=== PATIENT | male | born 1940 | race Caucasian/White ===

== ENCOUNTER 2016-08-16 08:03 | Inpatient (IN) | payer MEDICARE, OTHER ==
[~2016-08-16] VITALS: Ht 177.8 cm; Wt 104.6 kg
[2016-08-16] VITALS (23 sets, daily range): BP systolic 102–199; BP diastolic 49–89; PULSE 53–76; RESP 14–28; TEMP 97.2–98.5; O2SAT 84–100
[~2016-08-16 08:03] MED LIST: ASPI-110 PO; CARV25TA PO; COLA100C3 PO; COQ-100C2 PO; FERR65TA PO; FURO80TA PO; LAMO100 PO; LEVE250 PO; LEVO150T7 PO; LORA-373 PO; MINO10TA PO; MIRA33504 PO; POTA20TA5 PO; PROZ20CA11 PO; SUPETAB20 PO
[2016-08-16] MEDS ORDERED: VANCOMYCIN INJ 1,000 MG in SODIUM CHLOR 0.9% 250 ML INJ 250 ML IV STA (08:19)
[2016-08-16] MEDS ORDERED: PIPERACIL-TAZO 4.5 GM PREMIX 100 ML IV STA (08:19)
--- NOTE | 2016-08-16 08:29 | PD ---
HPI Chief Complaint: Respiratory Symptoms Time Seen by Provider: 08:13 Travel History International Travel<30 days: No Contact w/Intl Traveler<30days: No Traveled to known affect area: No History of Present Illness HPI Patient is a 76-year-old male presents emergency department with cough congestion shortness of breath and fever for the past week. Patient states he did go to his primary care physician is been taking azithromycin but is been gradually getting worse and this morning did have fever and his decided to bring him into the hospital. 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 No history of blood clots in the arms and legs. Only takes an aspirin 81 mg every other day. Patient on review of systems does have a history of some mild hemoptysis. Denies any chest pain abdominal pain nausea vomiting diarrhea. On arrival patient's room air saturation was 82%. PFSH Past Medical History Asthma: No Autoimmune Disease: No Blood Disorders: No Anxiety: Yes Depression: Yes Heart Rhythm Problems: No Cancer: Yes (prostate) Cardiovascular Problems: Yes (with stroke) High Cholesterol: Yes Chemotherapy: No Chest Pain: No Congestive Heart Failure: Yes COPD: No Cerebrovascular Accident: Yes Diabetes: Yes Patient Takes Glucophage: No Diminished Hearing: No Endocrine: Yes Gastrointestinal Disorders: No GERD: Yes Genitourinary: Yes Headaches: No Hepatitis: No Hiatal Hernia: No Hypertension: Yes Immune Disorder: No Kidney Stones: No Musculoskeletal: Yes (current fx l tibia - brace on knee) Neurologic: Yes Psychiatric: No Reproductive: No Respiratory: No Migraines: No Myocardial Infarction: Yes Radiation Therapy: No Renal Failure: No Seizures: Yes Sleep Apnea: Yes Thyroid Disease: Yes Ulcer: Yes Tetanus Vaccination: > 5 Years Influenza Vaccination: No PNEUMOCCOCAL Vaccine (Year): 2009 Past Surgical History Abdominal Surgery: Yes (diverticulitis ) AICD: No Appendectomy: No Arteriovenous Shunt: No Cardiac Surgery: No Cholecystectomy: Yes Ear Surgery: No Endocrine Surgery: No Eye Surgery: No Genitourinary Surgery: No Gynecologic Surgery: No Insulin Pump: No Joint Replacement: No Neurologic Surgery: Yes (brain 10/08/09 stroke) Oral Surgery: No Pacemaker: No Thoracic Surgery: No Other Surgery: Yes Social History Alcohol Use: Yes (SOCIALLY) Tobacco Use: No Substance Use: No Allergies-Medications (Allergen,Severity, Reaction): Coded Allergies: *MDRO Multi-Drug Resistant Organism (Verified Adverse Reaction, Unknown, ) MRSA Sputum 2008. MRSA PCR Screens negative 06/27/15 and 06/29/15. Cleared per Infection Control. Reported Meds & Prescriptions Reported Meds & Active Scripts Active Reported Promethazine-Codeine Liq 6.25-10 Mg/5 Ml Syrp 5 Ml PO Q6H PRN Ventolin Hfa 18 GM Inh (Albuterol Sulfate) 90 Mcg/Act Aer 1-2 Puff INH Q4-6H PRN Prednisone (21) 5 mg tab Dose Pack (Prednisone) 5 Mg Dspk 5 Mg PO DIRECTED Azithromycin 250 Mg Tab 250 Mg PO DIRECTED Take 2 tabs (500 mg) on day 1 then 1 tab days 2-5 Mucinex ER 12 HR (Guaifenesin) 600 Mg Melissa 600-1,200 Mg PO Q12HR PRN Not to Exceed 4 tablets/24hrs Minoxidil 10 Mg Tab 30 Mg PO HS Hydralazine (Hydralazine HCl) 25 Mg Tab 50 Mg PO HS Hydralazine (Hydralazine HCl) 25 Mg Tab 25 Mg PO TID Take with a meal Feosol (Ferrous Sulfate) 65 Mg Tab 130 Mg PO BIDPC Fluoxetine (Fluoxetine HCl) 40 Mg Cap 40 Cap PO HS Potassium Chloride Microencaps 20 Meq Tab 20 Meq PO DAILY Miralax Powder (Polyethylene Glycol 3350 Powder) 17 Gm Powd 17 Gm PO DAILY Mix and dissolve one measuring cap-ful (17 grams) in water or juice. Minoxidil 10 Mg Tab 20 Mg PO DAILY AT 12NOON Keppra (Levetiracetam) 250 Mg Tab 500 Mg PO BID Furosemide 80 Mg Tab 80 Mg PO DAILY Lorazepam 0.5 Mg Tab 0.5 Mg PO HS Levothyroxine (Levothyroxine Sodium) 150 Mcg Tab 150 Mcg PO DAILY Lamictal (Lamotrigine) 100 Mg Tab 300 Mg PO BID Colace (Docusate Sodium) 100 Mg Cap 100 Mg PO BID Coq-10 (Coenzyme Q10 (Ubidecarenone)) 100 Mg Cap 100 Mg PO DAILY Carvedilol 25 Mg Tab 50 Mg PO BID Aspirin 81 (Aspirin) 81 Mg Tabdr 81 Mg PO EVERY 3 DAYS Super B Complex Maxi (B-Complex W/ Folic Acid) 1 Tab 1 Tab PO DAILY Review of Systems Except as stated in HPI: all other systems reviewed are Neg Physical Exam Narrative GENERAL: Well-developed, overweight, in moderate respiratory distress. Patient appears sleepy but does arouse easily and shakes my hand. SKIN: Warm and dry. HEAD: Atraumatic. Normocephalic. EYES: Pupils equal and round. No scleral icterus. No injection or drainage. ENT: No nasal bleeding or discharge. Mucous membranes pink and moist. NECK: Trachea midline. No JVD. CARDIOVASCULAR: Regular rate and rhythm. No murmur appreciated. RESPIRATORY: Patient with intercostal and supraclavicular retractions, he has decent air entry in all lung lakhani with bibasilar wheezes probably worse on the right side. Posterior examination limited by the patient's is significantly weak. GASTROINTESTINAL: Abdomen soft, non-tender, nondistended. Hepatic and splenic margins not palpable. MUSCULOSKELETAL: No obvious deformities. No clubbing. No cyanosis. No edema. NEUROLOGICAL: Awake and alert. No obvious cranial nerve deficits. Motor grossly within normal limits. Normal speech. PSYCHIATRIC: Appropriate mood and affect; insight and judgment normal. Data Data Last Documented VS Vital Signs Date Time Temp Pulse Resp B/P Pulse Ox O2 Delivery O2 Flow Rate FiO2 08/16/16 10:34 65 14 120/56 96 08/16/16 10:16 60 08/16/16 09:54 97.5 08/16/16 08:59 Partial Rebreather 10 Orders Electrocardiogram (08/16/16 ) Complete Blood Count With Diff (08/16/16 08:19) Comprehensive Metabolic Panel (08/16/16 08:19) Prothrombin Time / Inr (Pt) (08/16/16 08:19) Act Partial Throm Time (Ptt) (08/16/16 08:19) Lactic Acid Sepsis Protocol (08/16/16 08:19) Magnesium (Mg) (08/16/16 08:19) Phosphorus (Po4) (08/16/16 08:19) Lipase (08/16/16 08:19) Ckmb (Isoenzyme) Profile (08/16/16 08:19) Troponin I (08/16/16 08:19) Urinalysis - C+S If Indicated (08/16/16 08:19) Influenzae A/B Antigen (08/16/16 08:19) Blood Culture (08/16/16 08:19) Chest, Single Ap (08/16/16 08:19) Blood Glucose (08/16/16 08:19) Ecg Monitoring (08/16/16 08:19) Iv Access Insert/Monitor (08/16/16 08:19) Oximetry (08/16/16 08:19) Oxygen Administration (08/16/16 08:19) Vancomycin Inj (Vancomycin Inj) (08/16/16 08:19) Piperacil-Tazo 4.5 Gm Premix (Zosyn 4.5 (08/16/16 08:19) Blood Gas Venous (Vbg) (08/16/16 08:19) Albuterol-Ipratropium Neb (Duoneb Neb) (08/16/16 08:30) Insert Temp Sensing Duran Cath (08/16/16 08:40) Urine Culture (08/16/16 08:30) Ct Pulmonary Angiogram (08/16/16 ) Etomidate Inj (Amidate Inj) (08/16/16 09:45) Succinylcholine Inj (Quelicin Inj) (08/16/16 09:45) Propofol 1000 Mg/100 Ml Inj (Diprivan 10 (08/16/16 09:45) ^ Infusion (08/16/16 09:37) RASS (08/16/16 09:37) Neurological Rass Scale LIZZY.Q2H (08/16/16 09:37) CKMB (08/16/16 08:25) CKMB% (08/16/16 08:25) Chest, Single Ap (08/16/16 ) Insert Temp Sensing Duran Cath (08/16/16 10:16) Insert Temp Sensing Duran Cath (08/16/16 10:16) Marissa-Gastric Tube Insert/Mon (08/16/16 10:16) Restraints Non-Violent LIZZY.Q3H (08/16/16 10:16) Admit Order (Ed Use Only) (08/16/16 ) Labs Laboratory Tests Test 08/16/16 08/16/16 08/16/16 08/16/16 08:23 08:25 08:30 08:45 White Blood Count 7.0 TH/MM3 Red Blood Count 3.74 MIL/MM3 Hemoglobin 12.9 GM/DL Hematocrit 37.5 % Mean Corpuscular Volume 100.2 FL Mean Corpuscular Hemoglobin 34.6 PG Mean Corpuscular Hemoglobin 34.5 % Concent Red Cell Distribution Width 13.6 % Platelet Count 50 TH/MM3 Mean Platelet Volume 9.1 FL Neutrophils (%) (Auto) 84.0 % Lymphocytes (%) (Auto) 5.0 % Monocytes (%) (Auto) 9.3 % Eosinophils (%) (Auto) 1.3 % Basophils (%) (Auto) 0.4 % Neutrophils # (Auto) 5.9 TH/MM3 Lymphocytes # (Auto) 0.4 TH/MM3 Monocytes # (Auto) 0.7 TH/MM3 Eosinophils # (Auto) 0.1 TH/MM3 Basophils # (Auto) 0.0 TH/MM3 CBC Comment AUTO DIFF Differential Comment AUTO DIFF CONFIRMED Platelet Estimate LOW Platelet Morphology Comment NORMAL Prothrombin Time 12.2 SEC Prothromb Time International 1.1 RATIO Ratio Activated Partial 28.5 SEC Thromboplast Time Sodium Level 136 MEQ/L Potassium Level 4.8 MEQ/L Chloride Level 101 MEQ/L Carbon Dioxide Level 28.6 MEQ/L Anion Gap 6 MEQ/L Blood Urea Nitrogen 18 MG/DL Creatinine 1.08 MG/DL Estimat Glomerular Filtration 66 ML/MIN Rate Random Glucose 87 MG/DL Lactic Acid Level 0.8 mmol/L Calcium Level 8.9 MG/DL Phosphorus Level 2.7 MG/DL Magnesium Level 2.2 MG/DL Total Bilirubin 1.0 MG/DL Aspartate Amino Transf 38 U/L (AST/SGOT) Alanine Aminotransferase 23 U/L (ALT/SGPT) Alkaline Phosphatase 123 U/L Total Creatine Kinase 425 U/L Creatine Kinase MB 1.8 NG/ML Creatine Kinase MB % 0.4 % Troponin I 0.04 NG/ML Total Protein 8.0 GM/DL Albumin 4.2 GM/DL Lipase 172 U/L Urine Color YELLOW Urine Turbidity CLEAR Urine pH 6.0 Urine Specific [place] 1.016 Urine Protein 30 mg/dL Urine Glucose (UA) NEG mg/dL Urine Ketones NEG mg/dL Urine Occult Blood SMALL Urine Nitrite NEG Urine Bilirubin NEG Urine Urobilinogen LESS THAN 2.0 MG/DL Urine Leukocyte Esterase NEG Urine RBC 25 /hpf Urine Bacteria RARE /hpf Urine Mucus FEW /lpf Microscopic Urinalysis Comment CATH-CULTURE IND Blood Gas Puncture Site CL Blood Gas Patient Temperature 98.6 Venous Blood pH 7.37 Venous Blood Partial Pressure 51 mmHg CO2 Venous Blood Partial Pressure 31 mmHg O2 Venous Blood HCO3 28 mmol/L Venous Blood Oxygen Saturation 54 % Venous Blood Oxygen Content 8.7 Vol % Venous Blood Base Excess 3.4 mmol/L Oxygen Delivery Device NRB [facility] Medical Decision Making Medical Screen Exam Complete: Yes Emergency Medical Condition: Yes Interpretation(s) EKG shows sinus rhythm with right axis deviation, QRS duration the upper limits of normal, probable incomplete left bundle branch block, no concerning ST T changes this time. This abnormal EKG. Differential Diagnosis Pneumonia, flu, sepsis, pulmonary embolism, hypoxic respiratory failure. Narrative Course Patient was roomed in emergency department, on my initial evaluation nursing is replaced the patient on 2 L nasal cannula and his sat has risen to 86. He is placed on nonrebreather which brought his saturation to 100%. He was given a breathing treatment and monitored. During his initial evaluation and after the treatments the patient started complaining that he could not breathe. He was revisited by me and is now somewhat more somnolent a GCS of 14. He has significant upper respiratory sounds and gurgling. After discussion with his and the patient the decision was made to electively intubate the patient. Discussed with Dr. Barajas before intubation and he is agreeable. Patient was very difficult intubation secondary to laryngeal edema. Ultimately he was able to be intubated and had no desaturation. It took 3 attempts in the emergency department. Differential diagnoses for the edema includes tracheitis as the patient did have a significant amount of laryngeal exudate, instrumentation reaction, medication reaction (patient did have vancomycin prior to the procedure). Dr. Barajas was notified of these laryngeal changes. Patient was placed on propofol sedation and had re-bolused 50 mg by me after intubation as he was fighting respirations. Was placed on mechanical ventilation and seems to be tolerating well. On reassess sometime later he appears quite comfortable vital signs stabilized. He is tolerating mechanical ventilation and saturation 98% on 60% FiO2. CT pulmonary angiogram shows no evidence of pulmonary embolism but there is a right-sided pleural effusion as well as a left-sided pneumonia. Last 24 hours Impressions Chest X-Ray 08/16/16 0819 Signed Impressions: Service Date/Time: Tuesday, August 16, 2016 08:32 - CONCLUSION: Underinflated examination with atelectasis versus mild consolidation at the left lung base. Shaquille Bustos MD Chest X-Ray 08/16/16 0000 Signed Impressions: Service Date/Time: Tuesday, August 16, 2016 10:18 - CONCLUSION: 1. Endotracheal tube in appropriate position with tip measuring 4 cm the angely. 2. Patchy airspace consolidation in the left mid and lower lung zone. Shaquille Bustos MD CT Angiography 08/16/16 0000 Signed Impressions: Service Date/Time: Tuesday, August 16, 2016 11:06 - CONCLUSION: 1. Evaluation for PE is limited due to severe respiratory motion artifact and less than optimal contrast bolus timing. However, no PE is seen through the lobar vessels. More distal PE cannot be excluded based on this examination. 2. There is consolidation and volume loss in the left lower lobe as well as the right lower lobe. There are trace bilateral pleural effusions. 3. Enlarged lymph nodes are present in the left axilla with edema along the left chest wall. Suggest correlation with clinical history and exam. 4. There is free fluid in the visualized upper abdomen. Shaquille Bustos MD Critical Care Narrative Aggregate critical care time was 31 minutes. Time to perform other separately billable procedures was not included in the critical care time. My time did not include minutes spent treating any other patients simultaneously or on activities that did not directly contribute to the patient's treatment. The services I provided to this patient were to treat and/or prevent clinically significant deterioration that could result in: and disability. I provided critical care services requiring my management, as noted below: Chart data review, documentation time, medication orders and management, vital sign assessments/reviewing monitor data, ordering and reviewing lab tests, ordering and interpreting/reviewing x-rays and diagnostic studies, care of the patient and discussion of the patient with the admitting physicians. Procedures Procedure Narrative After the risks and benefits were discussed the following procedure was performed: INTUBATION: The patient was put in optimal position for the procedure. Rapid sequence intubation was initiated by me using 20 milligrams of etomidate IV and 100 milligrams of succinylcholine IV. Attempted to intubate the patient with a glidescope 3 in no visualization of the cords could be accomplished the anatomy did appear somewhat distorted and likely some swelling of the arytenoid processes. Second attempt reconciliation with Mac 3 the arytenoids were observed no definitive tracheal rings. I attempted to pass an 8-0 tube without success. On third attempt with a glidescope 4 the airway was visualized but there is significant edema around both cords and the true vocal cords could not be identified. Attempted to pass a bougie without success. A 7-0 ET tube was able to be passed with some difficulty into the airway. This was confirmed with color change capnography, bilateral breath sounds. Patient was bag valve mask inbetween attempts and had no desaturation below 94%. Subsequent chest x-ray showed the ET tube was in good position. Diagnosis Primary Impression: Acute respiratory failure with hypoxia Additional Impressions: Vocal cords swelling Pneumonia Sepsis Admitting Information Admitting Physician Requests: Admit Condition: Stable Rishi Barreto MD Aug 16, 2016 08:29
[2016-08-16] MEDS ORDERED: RESP: ALBUTEROL 2.5 MG/IPRATROPIUM 0.5 MG NEB (SCH) NEB ONE (08:30)
[2016-08-16 09:05] LABS: AUTOMATED NEUTROPHIL # 5.9 TH/MM3 (1.8-7.7); BASOPHIL % 0.4 % (0.0-2.0); EOSINOPHIL # 0.1 TH/MM3 (0-0.4); EOSINOPHIL % 1.3 % (0.0-4.0); HEMATOCRIT 37.5 % (39.0-51.0); LYMPHOCYTE # 0.4 TH/MM3 (1.0-4.8); MEAN CELL VOLUME 100.2 FL (80.0-100.0); MEAN CORPUSCULAR HEMOGLOBIN 34.6 PG (27.0-34.0); MEAN CORPUSCULAR HGB CONC 34.5 % (32.0-36.0); MONO % 9.3 % (0.0-8.0); PLATELET COUNT 50 TH/MM3 (150-450); RED BLOOD COUNT 3.74 MIL/MM3 (4.50-5.90); RED CELL DISTRIBUTION WIDTH 13.6 % (11.6-17.2)
[2016-08-16 09:05] LABS: BLOOD GAS VENOUS BASE EXCESS 3.4 mmol/L (-2-2); BLOOD GAS VENOUS HCO3 28 mmol/L (22-26); BLOOD GAS VENOUS O2 CONTENT 8.7 Vol % (9.0-17.0); BLOOD GAS VENOUS O2 HGB SAT 54 % (70-76); BLOOD GAS VENOUS PCO2 51 mmHg (44-48); BLOOD GAS VENOUS PO2 31 mmHg (35-40); BLOOD GAS VENOUS pH 7.37 (7.360-7.400); CRITICAL VALUE NO; DRAW SITE CL; OXYGEN DEVICE NRB; STAT YES; TEMP CORR TO 98.6
[2016-08-16 09:09] LABS: HEMO FLAGS AUTO DIFF
[2016-08-16] MEDS ORDERED: FLUO40CA PO (09:12)
[2016-08-16] MEDS ORDERED: PRED5PAK PO (09:12)
[2016-08-16] MEDS ORDERED: MUCI600T PO (09:12)
[2016-08-16] MEDS ORDERED: VENTAER INH (09:12)
[2016-08-16] MEDS ORDERED: PROM6.256 PO (09:12)
[2016-08-16] MEDS ORDERED: HYDR25TA35 PO ×2 (09:12)
[2016-08-16] MEDS ORDERED: AZIT250T3 PO (09:12)
[2016-08-16] MEDS ORDERED: MINO10TA PO (09:12)
[2016-08-16] MEDS ORDERED: FERR65TA PO (09:12)
--- NOTE | 2016-08-16 09:13 | RADRPT ---
EXAM DATE/TIME: 08/16/2016 08:32 [facility] COMPARISON: CHEST SINGLE AP, June 25, 2015, 10:54. INDICATIONS : Short of breath. MEDICAL HISTORY : Stroke. SURGICAL HISTORY : None. ENCOUNTER: Initial ACUITY: 1 week PAIN SCORE: 9/10 LOCATION: Bilateral chest FINDINGS: Portable AP view of the chest demonstrates cardiac silhouette size at the upper limits for normal. [place] ngs are underinflated and there is mild airspace opacity at the left lung base. No pneumothorax or pl eural effusion is visualized. Bones and soft tissues demonstrate no acute finding. CONCLUSION: Underinflated examination with atelectasis versus mild consolidation at the left lung base. Shaquille Bustos MD on August 16, 2016 at 9:11 Board Certified Radiologist. This report was verified electronically.
[2016-08-16 09:18] LABS: BACTERIA, URINE RARE /hpf; BLOOD, URINE SMALL (NEG); COMMENT (UR) CATH-CULTURE IND; CULTURE IF INDICATED CATH CULTURE IND; GLUCOSE,URINE NEG (NEG); KETONE, URINE NEG (NEG); MUCUS URINE FEW /lpf (OCC); NITRITE,URINE NEG (NEG); URINE COLOR YELLOW (YELLW/STRAW)
[2016-08-16 09:19] LABS: APTT (PATIENT) 28.5 SEC (24.3-30.1); INTERNATIONAL NORMALIZED RATIO 1.1 RATIO; PROTHROMBIN TIME - PATIENT 12.2 SEC (9.8-11.6)
[2016-08-16] MEDS ORDERED: SUCCINYLCHOLINE CHLORIDE 200 MG/10 ML VIAL IVP ONE (09:45)
[2016-08-16] MEDS ORDERED: ETOMIDATE 20 MG/10 ML VIAL IV PUSH ONE (09:45)
[2016-08-16 09:49] LABS: PLATELET ESTIMATE SMEAR LOW (NORMAL); PLATELET MORPHOLOGY NORMAL (NORMAL); SCAN/DIFF AUTO DIFF CONFIRMED
[2016-08-16 09:54] LABS: ALKALINE PHOSPHATASE 123 U/L (45-117); ALT (GPT) 23 U/L (12-78); ANION GAP 6 MEQ/L (5-15); AST (GOT) 38 U/L (15-37); BICARBONATE 28.6 MEQ/L (21.0-32.0); BLOOD UREA NITROGEN 18 MG/DL (7-18); CHLORIDE 101 MEQ/L (98-107); CREATINE KINASE 425 U/L (39-308); GLOMERULAR FILTRATION RATE 66 ML/MIN (>89); MAGNESIUM 2.2 MG/DL (1.5-2.5); SODIUM (NA) 136 MEQ/L (136-145)
[2016-08-16 09:57] LABS: POTASSIUM 4.8 MEQ/L (3.5-5.1)
[2016-08-16 10:09] LABS: CKMB 1.8 NG/ML (0.5-3.6)
--- NOTE | 2016-08-16 10:44 | RADRPT ---
EXAM DATE/TIME: 08/16/2016 10:18 [facility] COMPARISON: CHEST SINGLE AP, August 16, 2016, 8:32. INDICATIONS : Post intubation. MEDICAL HISTORY : Stroke. SURGICAL HISTORY : None. ENCOUNTER: Initial ACUITY: 1 day PAIN SCORE: Non-responsive. LOCATION: Bilateral chest FINDINGS: Portable AP view of the chest demonstrates stable mild enlargement of the cardiac silhouette. Endotra cheal tube has been placed and the tip measures 4 cm from the angely. Nasogastric tube courses beyond the GE junction. Lungs are underinflated and there is opacity in the left mid and lower lung zone as well as atelectasis at the right base. No pleural effusion or pneumothorax is appreciated. CONCLUSION: 1. Endotracheal tube in appropriate position with tip measuring 4 cm the angely. 2. Patchy airspace consolidation in the left mid and lower lung zone. Shaquille Bustos MD on August 16, 2016 at 10:41 Board Certified Radiologist. This report was verified electronically.
[2016-08-16] MEDS ORDERED: IOHEXOL 350 MG/ML 10 ML VIAL (for RAD DIAG) IV ONE (11:12)
--- NOTE | 2016-08-16 11:45 | RADRPT ---
EXAM DATE/TIME: 08/16/2016 11:06 [facility] COMPARISON: CT PULMONARY ANGIOGRAM, June 27, 2015, 14:55. INDICATIONS : Shortness of breath, cough, wheezing; evaluate for embolism. IV CONTRAST: 75 cc Omnipaque 350 (iohexol) IV RADIATION DOSE: 23.23 CTDIvol (mGy) MEDICAL HISTORY : Congestive hearrt failure. Hypertension. Diabetes mellitus type 2. SURGICAL HISTORY : None. ENCOUNTER: Initial ACUITY: 3 days PAIN SCALE: Non-responsive LOCATION: chest TECHNIQUE: Volumetric scanning of the chest was performed using a pulmonary embolism protocol MIP images were re constructed. Using automated exposure control and adjustment of the mA and/or kV according to patien t size, radiation dose was kept as low as reasonably achievable to obtain optimal diagnostic quality images. FINDINGS: Examination quality is degraded by severe respiratory motion artifact and poor contrast bolus in the pulmonary arteries. PULMONARY ARTERIES: No filling defects are seen in the pulmonary arteries through the proximal lobar vessels. More distal PE cannot be excluded based on this exam. LUNGS: There is severe respiratory motion artifact. There is volume loss and consolidation in the left lower lobe and atelectasis versus consolidation in the right lower lobe. Trace pleural fluid is present bi laterally. No pneumothorax is present. PLEURAE: Trace pleural fluid is present bilaterally. MEDIASTINUM: There is coronary artery calcification and atherosclerotic disease of aorta. The heart is enlarged. N o mediastinal lymphadenopathy is visualized. MUSCULOSKELETAL: There are degenerative changes of the thoracic spine. MISCELLANEOUS: The visualized upper abdominal organs demonstrate no acute abnormality. There are enlarged left axill nahid lymph nodes with edema along the left chest wall. Free fluid is present in the upper abdomen. CONCLUSION: 1. Evaluation for PE is limited due to severe respiratory motion artifact and less than optimal contr ast bolus timing. However, no PE is seen through the lobar vessels. More distal PE cannot be excluded based on this examination. 2. There is consolidation and volume loss in the left lower lobe as well as the right lower lobe. The re are trace bilateral pleural effusions. 3. Enlarged lymph nodes are present in the left axilla with edema along the left chest wall. Suggest correlation with clinical history and exam. 4. There is free fluid in the visualized upper abdomen. Shaquille Bustos MD on August 16, 2016 at 11:39 Board Certified Radiologist. This report was verified electronically.
[2016-08-16] MEDS ORDERED: CHLORHEXIDINE GLUCONATE 2 % 1 PACK (2 CLOTHS) TOP PRN (13:15)
[2016-08-16] MEDS ORDERED: DEXTROSE 50% IN WATER 50 ML VIAL(D50) IV PUSH PRN (13:15)
[2016-08-16] MEDS ORDERED: INSULIN NovoLIN REGULAR SUPPLEMENTAL SCALE SQ SCH (13:15)
[2016-08-16] MEDS ORDERED: GLUCAGON 1 MG/ML VIAL OTHER PRN (13:15)
[2016-08-16] MEDS ORDERED: MISCELLANEOUS NURSING INFORMATION XX SCH (13:15)
[2016-08-16] MEDS: PANTOPRAZOLE SODIUM 40 MG VIAL IV SCH (13:16)
[2016-08-16] MEDS: methylPREDNISolone SOD SUCC 40 MG/1 ML VIAL IV PUSH SCH (13:16)
[2016-08-16] MEDS: PIPERACIL-TAZO 4.5 GM PREMIX 100 ML IV SCH (13:50)
[2016-08-16 14:23] LABS: BLOOD GAS BASE EXCESS 0.9 mmol/L (-2-2); BLOOD GAS CARBOXYHEMOGLOBIN 2.8 % (0-4); BLOOD GAS HCO3 25 mmol/L (22-26); BLOOD GAS METHEMOGLOBIN 2.1 % (0-2); BLOOD GAS O2 HGB SATURATION 92 % (90-100); BLOOD GAS OXYGEN CONTENT 14.8 Vol % (12.0-20.0); BLOOD GAS PCO2 41 mmHg (38-42); BLOOD GAS PO2 72 mmHG (61-120); BLOOD GAS TOTAL HGB 11.4 G/DL (12.0-16.0); CRITICAL VALUE NO; OXYGEN DEVICE VENTILATOR; TEMP CORR TO 98.6
[2016-08-16 14:24] LABS: DRAW SITE LT RADIAL; FIO2 40 %; NUMBER OF ARTERIAL PUNCTURES 1; STAT YES; ULNAR PULSE Y; VENT SETTINGS PRVC/AC/VT550/R14/P5
--- NOTE | 2016-08-16 15:18 | MH ---
cc: TERI BRANCH M.D. DATE OF ADMISSION: 08/16/2016 DATE OF : 1940. HISTORY OF PRESENT ILLNESS: The patient is a 76-year-old male with past medical history of hypertension, intracranial hemorrhage back in 2008, seizure, coronary artery disease, prostate CA and hypothyroidism. He presented to the [facility] Emergency Department with a history of cough, shortness of breath, congestion and subjective fever for the past week. The patient initially went to his primary care physician and was given azithromycin. However, his condition gradually worsened and this morning his decided to bring him to the hospital. 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 He only takes aspirin 81 milligrams every day. No history of chest pain, abdominal pain, nausea, vomiting or diarrhea. On arrival, he had a O2 saturation of 82% on room air. Due to worsening respiratory status, he was subsequently intubated with etomidate, succinylcholine and placed on full mechanical ventilation. According to the emergency department staff, the patient was a difficult intubation and required three attempts with a GlideScope and he was eventually intubated with a size 7.0 ET tube. He was noted to have significant edema around the vocal cords. In the emergency department, he was given bronchodilator treatment as well as vancomycin and Zosyn. His initial chest x-ray showed atelectasis versus mild consolation at the left lung base. A chest x-ray post-intubation showed the ET tube above the angely, patchy airspace consolidation left mid and lower lung zones. The patient also underwent CT angiogram of the chest to rule out PE which was a limited study due to severe respiratory and motion artifact. However, no PE is seen through the lobar vessels. There is a consolidation in the left lower lobe as well as right lower lobe and enlarged lymph nodes present in the left axilla. PAST MEDICAL HISTORY: His past medical history is significant for: 1. Hypertension. 2. Hypothyroidism. 3. Prostate cancer. 4. Coronary artery disease. 5. History of seizures. 6. History of hemorrhagic stroke with residual left hemiparesis. PAST SURGICAL HISTORY: 1. Previous cholecystectomy. 2. Previous craniotomy for hemorrhagic stroke. 3. Previous hernia repair. 4. Previous partial colectomy for diverticular perforation. ALLERGIES: NO KNOWN DRUG ALLERGIES. FAMILY HISTORY: Noncontributory. MEDICATIONS: Reported medications include: 1. Aspirin. 2. Coreg. 3. Lamictal. 4. Levothyroxine. 5. Lasix. 6. Keppra. 7. Minoxidil. 8. Hydralazine. 9. Prednisone. 10. Azithromycin. REVIEW OF SYSTEMS: The review of systems is as per the history of present illness, and the rest of the review of systems is limited as the patient is intubated. PHYSICAL EXAMINATION: GENERAL: A 76-year-old male intubated for hypoxemic respiratory failure. VITAL SIGNS: Temperature of 97.5, blood pressure 102/49, pulse of 57, saturation of 97%. VENT SETTINGS: PRVC / assist control rate of 14, tidal volume of 550, PEEP of 5, FIO2 60%. ____ 1.0. HEAD, EYES, EARS, NOSE, THROAT: Normocephalic and atraumatic. Pupils equal, round and reactive to light and accommodation. Extraocular muscles intact. Conjunctivae are pink. Nonicteric sclerae. Oral mucosa within normal limits. NECK: The neck is supple. No jugular venous distention, adenopathy or thyromegaly. Trachea in the midline. Orally intubated. CARDIOVASCULAR: Regular rate and rhythm. Normal S1 and S2. No murmurs, rubs or gallops noted. PULMONARY: Bilateral equal air entry. No crackles or wheezing. ABDOMEN: The abdomen is soft, obese, nontender, no distention. Positive bowel sounds. EXTREMITIES: No cyanosis, clubbing or edema. NEUROLOGIC: Intubated and sedated. LABORATORY DATA: WBCs 7, hemoglobin 12.9, hematocrit 37, platelet count of 50,000. Sodium 136, potassium 4.8, chloride 101, carbon dioxide 28, BUN of 18, creatinine 1.08, glucose of 87, lactic acid 0.8. AST 38, ALT 23, alkaline phosphatase of 123. Total CK of 425. INR 1.1. PT 12.2. PTT 28.5. Urinalysis showed rare bacteria, 25 RBCs. RADIOGRAPHY: CT angiogram of the chest is a limited study due to severe respiratory motion artifact. No PE seen through the lobar vessels. Consolidation seen in the left lower lobe as well as right lower lobe and enlarged lymph nodes present in the left axilla. IMPRESSION: 1. Acute hypoxemic respiratory failure. 2. Probable pneumonia. 4. Anemia and thrombocytopenia. 5. Hypertension. 6. History of seizure and hemorrhagic stroke. 7. Coronary artery disease. 8. Prostate CA. RECOMMENDATIONS: 1. Continue with Diprivan infusion for sedation and daily sedation vacation. 2. Monitor neuro status closely. 3. Continue with Keppra 500 milligrams twice a day and Lamictal 300 milligrams twice a day for underlying history of seizures. 4. Continue with vent support and maintain saturations above 92%. 5. Bronchodilators in the form of DuoNeb q. 6. 6. Will initiate intensive care unit vent bundle. 7. Place on IV steroids, Solu-Medrol 60 milligrams q.8 for laryngeal edema. 8. Will check ABG post-intubation. 9. Monitor heart rate and blood pressure closely and maintain MAP greater than 65 mmHg. 10. Resume hydralazine 25 milligrams p.o. three times a day. 11. Lactic acid level measured at 0.8. 12. Monitor renal function, intakes and outputs and electrolyte replacement as needed. 13. Start tube feeds in the form of Glucerna 1.5 with goal rate of 45 mL/hour. 14. Place on Protonix 40 milligrams IV daily for GI prophylaxis. 15. Continue with antibiotics in the form of Zosyn and monitor for signs of infection which include fever and WBCs. 16. Of note, the patient received Vancomycin and Zosyn in the emergency department. 17. Follow up on blood and urine cultures. 18. Will obtain a sputum culture with Gram stain. 19. Nasal washing for influenza is negative. 20. Place on sliding scale insulin with Accu-Chek q. 6 hours for glycemic control. 21. Continue with Synthroid 150 micrograms p.o. daily in view of history of hypothyroidism. 22. Will check a baseline TSH level. 23. Monitor CBC and coags and continue with ferrous sulfate. 24. GI prophylaxis with Protonix 40 milligrams daily. 25. DVT prophylaxis with SCDs. 26. Will hold off on chemical anticoagulation given thrombocytopenia and history of hemorrhagic stroke. CRITICAL CARE TIME: Sixty (60) minutes excluding procedures. MD LOY Corley/LAURA Funes: 08/16/2016/1:21 PM /2:51 PM
[2016-08-16] MEDS: RESP: ALBUTEROL 2.5 MG/IPRATROPIUM 0.5 MG NEB (SCH) INH (16:00)
[2016-08-17] VITALS (25 sets, daily range): BP systolic 115–161; BP diastolic 55–74; PULSE 50–74; RESP 12–20; TEMP 98.6–100.1; O2SAT 91–99
[2016-08-17] MEDS: PIPERACIL-TAZO 4.5 GM PREMIX 100 ML IV SCH ×4 (00:17→20:58)
[2016-08-17] MEDS: methylPREDNISolone SOD SUCC 40 MG/1 ML VIAL IV PUSH SCH ×4 (00:17→20:57)
[2016-08-17] MEDS: RESP: ALBUTEROL 2.5 MG/IPRATROPIUM 0.5 MG NEB (SCH) INH ×4 (03:37→20:47)
[2016-08-17 03:57] LABS: AUTOMATED NEUTROPHIL # 9.3 TH/MM3 (1.8-7.7); BASOPHIL % 0.2 % (0.0-2.0); HEMATOCRIT 28.1 % (39.0-51.0); LYMPH % 3.8 % (9.0-44.0); LYMPHOCYTE # 0.4 TH/MM3 (1.0-4.8); MEAN CORPUSCULAR HEMOGLOBIN 34.7 PG (27.0-34.0); MONO % 1.8 % (0.0-8.0); NEUT % 94.2 % (16.0-70.0); PLATELET COUNT 41 TH/MM3 (150-450); RED BLOOD COUNT 2.83 MIL/MM3 (4.50-5.90); RED CELL DISTRIBUTION WIDTH 13.1 % (11.6-17.2); WHITE BLOOD COUNT 9.9 TH/MM3 (4.0-11.0)
[2016-08-17] MEDS: CHLORHEXIDINE GLUCONATE 2 % 1 PACK (2 CLOTHS) TOP SCH (04:00)
[2016-08-17 04:08] LABS: HEMO FLAGS AUTO DIFF
[2016-08-17 04:28] LABS: ALKALINE PHOSPHATASE 81 U/L (45-117); ALT (GPT) 18 U/L (12-78); ANION GAP 9 MEQ/L (5-15); AST (GOT) 22 U/L (15-37); BICARBONATE 25.5 MEQ/L (21.0-32.0); BLOOD UREA NITROGEN 17 MG/DL (7-18); CHLORIDE 106 MEQ/L (98-107); GLOMERULAR FILTRATION RATE 82 ML/MIN (>89); POTASSIUM 4.1 MEQ/L (3.5-5.1); SODIUM (NA) 140 MEQ/L (136-145); TOTAL BILIRUBIN ADULT 0.8 MG/DL (0.2-1.0)
[2016-08-17 04:51] LABS: PLATELET ESTIMATE SMEAR LOW (NORMAL); PLATELET MORPHOLOGY NORMAL (NORMAL); SCAN/DIFF AUTO DIFF CONFIRMED
[2016-08-17] MEDS: INSULIN NovoLIN REGULAR SUPPLEMENTAL SCALE SQ SCH ×4 (06:00→18:00)
--- NOTE | 2016-08-17 08:28 | HHI.CCPN ---
Subjective Remarks/Hospital Course The patient is a 76-year-old male with past medical history of hypertension, intracranial hemorrhage back in 2008, seizure, coronary artery disease, prostate CA and hypothyroidism. He presented to the [facility] Emergency Department with a history of cough, shortness of breath, congestion and subjective fever for the past week. The patient initially went to his primary care physician and was given azithromycin. However, his condition gradually worsened and this morning his decided to bring him to the hospital. 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 He only takes aspirin 81 milligrams every day. No history of chest pain, abdominal pain, nausea, vomiting or diarrhea. On arrival, he had a O2 saturation of 82% on room air. Due to worsening respiratory status, he was subsequently intubated with etomidate, succinylcholine and placed on full mechanical ventilation. According to the emergency department staff, the patient was a difficult intubation and required three attempts with a GlideScope and he was eventually intubated with a size 7.0 ET tube. He was noted to have significant edema around the vocal cords. In the emergency department, he was given bronchodilator treatment as well as vancomycin and Zosyn. His initial chest x-ray showed atelectasis versus mild consolation at the left lung base. A chest x-ray post-intubation showed the ET tube above the angely, patchy airspace consolidation left mid and lower lung zones. The patient also underwent CT angiogram of the chest to rule out PE which was a limited study due to severe respiratory and motion artifact. However, no PE is seen through the lobar vessels. There is a consolidation in the left lower lobe as well as right lower lobe and enlarged lymph nodes present in the left axilla. 08/17 No acute events overnight. Sedated with Diprivan and intubated. Afebrile. Objective Vital Signs Date Time Temp Pulse Resp B/P Pulse Ox O2 Delivery O2 Flow Rate FiO2 08/17/16 07:46 98 40 08/17/16 06:00 60 08/17/16 04:00 98.8 14 142/63 08/16/16 16:23 Ventilator 08/16/16 08:59 10 Intake and Output 08/16/16 08/16/16 08/17/16 08:00 16:00 00:00 Intake Total 195 ml Output Total 400 ml 600 ml Balance -400 ml -405 ml Result Diagram: 08/17/16 0310 08/17/16 031 Other Results Laboratory Tests Test 08/16/16 08/16/16 08/16/16 08/16/16 08:30 08:45 14:10 16:50 Urine Color YELLOW Urine Turbidity CLEAR Urine pH 6.0 Urine Specific [place] 1.016 Urine Protein 30 mg/dL Urine Glucose (UA) NEG mg/dL Urine Ketones NEG mg/dL Urine Occult Blood SMALL Urine Nitrite NEG Urine Bilirubin NEG Urine Urobilinogen LESS THAN 2.0 MG/DL Urine Leukocyte Esterase NEG Urine RBC 25 /hpf Urine Bacteria RARE /hpf Urine Mucus FEW /lpf Microscopic Urinalysis Comment CATH-CULTURE IND Blood Gas Puncture Site CL LT RADIAL Blood Gas Patient Temperature 98.6 98.6 Venous Blood pH 7.37 Venous Blood Partial Pressure 51 mmHg CO2 Venous Blood Partial Pressure 31 mmHg O2 Venous Blood HCO3 28 mmol/L Venous Blood Oxygen Saturation 54 % Venous Blood Oxygen Content 8.7 Vol % Venous Blood Base Excess 3.4 mmol/L Oxygen Delivery Device NRB VENTILATOR Blood Gas HCO3 25 mmol/L Blood Gas Base Excess 0.9 mmol/L Blood Gas Oxygen Saturation 92 % Arterial Blood pH 7.41 Arterial Blood Partial 41 mmHg Pressure CO2 Arterial Blood Partial 72 mmHG Pressure O2 Arterial Blood Oxygen Content 14.8 Vol % Arterial Blood 2.8 % Carboxyhemoglobin Arterial Blood Methemoglobin 2.1 % Blood Gas Hemoglobin 11.4 G/DL Blood Gas Ventilator Setting PRVC/AC/VT550/R14/P5 Blood Gas Inspired Oxygen 40 % Nasal Screen MRSA (PCR) NEGATIVE Test 08/17/16 03:10 White Blood Count 9.9 TH/MM3 Red Blood Count 2.83 MIL/MM3 Hemoglobin 9.8 GM/DL Hematocrit 28.1 % Mean Corpuscular Volume 99.0 FL Mean Corpuscular Hemoglobin 34.7 PG Mean Corpuscular Hemoglobin 35.0 % Concent Red Cell Distribution Width 13.1 % Platelet Count 41 TH/MM3 Mean Platelet Volume 9.0 FL Neutrophils (%) (Auto) 94.2 % Lymphocytes (%) (Auto) 3.8 % Monocytes (%) (Auto) 1.8 % Eosinophils (%) (Auto) 0.0 % Basophils (%) (Auto) 0.2 % Neutrophils # (Auto) 9.3 TH/MM3 Lymphocytes # (Auto) 0.4 TH/MM3 Monocytes # (Auto) 0.2 TH/MM3 Eosinophils # (Auto) 0.0 TH/MM3 Basophils # (Auto) 0.0 TH/MM3 CBC Comment AUTO DIFF Differential Comment AUTO DIFF CONFIRMED Platelet Estimate LOW Platelet Morphology Comment NORMAL Sodium Level 140 MEQ/L Potassium Level 4.1 MEQ/L Chloride Level 106 MEQ/L Carbon Dioxide Level 25.5 MEQ/L Anion Gap 9 MEQ/L Blood Urea Nitrogen 17 MG/DL Creatinine 0.90 MG/DL Estimat Glomerular Filtration 82 ML/MIN Rate Random Glucose 107 MG/DL Calcium Level 8.2 MG/DL Phosphorus Level 3.1 MG/DL Magnesium Level 2.0 MG/DL Total Bilirubin 0.8 MG/DL Aspartate Amino Transf 22 U/L (AST/SGOT) Alanine Aminotransferase 18 U/L (ALT/SGPT) Alkaline Phosphatase 81 U/L Total Protein 5.8 GM/DL Albumin 3.1 GM/DL Imaging Last Impressions Chest X-Ray 08/16/16 0819 Signed Impressions: Service Date/Time: Tuesday, August 16, 2016 08:32 - CONCLUSION: Underinflated examination with atelectasis versus mild consolidation at the left lung base. Shaquille Bustos MD CT Angiography 08/16/16 0000 Signed Impressions: Service Date/Time: Tuesday, August 16, 2016 11:06 - CONCLUSION: 1. Evaluation for PE is limited due to severe respiratory motion artifact and less than optimal contrast bolus timing. However, no PE is seen through the lobar vessels. More distal PE cannot be excluded based on this examination. 2. There is consolidation and volume loss in the left lower lobe as well as the right lower lobe. There are trace bilateral pleural effusions. 3. Enlarged lymph nodes are present in the left axilla with edema along the left chest wall. Suggest correlation with clinical history and exam. 4. There is free fluid in the visualized upper abdomen. Shaquille Bustos MD Objective Remarks GENERAL: Patient is 76yo intubated and sedated. SKIN: Warm and dry. HEAD: Normocephalic. EYES: No scleral icterus. No injection or drainage. NECK: Supple, trachea midline. No JVD or lymphadenopathy. CARDIOVASCULAR: Regular rate and rhythm without murmurs, gallops, or rubs. RESPIRATORY: Breath sounds equal bilaterally. No accessory muscle use. GASTROINTESTINAL: Abdomen soft, non-tender, nondistended. MUSCULOSKELETAL: No cyanosis, or edema. Neuro: Sedated, intubated A/P Assessment and Plan 1. Acute hypoxemic respiratory failure. 2. Probable pneumonia. 4. Anemia and thrombocytopenia. 5. Hypertension. 6. History of seizure and hemorrhagic stroke. 7. Coronary artery disease. 8. Prostate CA. Plan Neuro: Continue with Diprivan infusion for sedation and daily sedation vacation. Monitor neuro status closely. Continue with Keppra 500 mg BID and Lamictal 300 mg BID for underlying history of seizures. Pulm: Continue with vent support and maintain saturations above 92%. Bronchodilators, ICU vent bundle. Continue with IV steroids, Solu-Medrol 60 mg q.8 for laryngeal edema. CV: Monitor HR and BP and maintain MAP > 65 mmHg. On hydralazine 25 mg TID. Lactic acid level measured at 0.8. : Monitor renal function, intakes and outputs and electrolyte replacement as needed. GI: Continue with TF feeds-Glucerna 1.5 with goal rate of 45 mL/hour. Protonix 40 mg IV daily for GI prophylaxis. ID: Continue with abx(Zosyn) and monitor for signs of infection( fever and WBCs) . Given Vancomycin and Zosyn in ED. Follow up on cxs Nasal washing for influenza is negative. Endo: SSI with Accu-Chek q. 6 hours for glycemic control. On Synthroid 150 micrograms p.o. daily. TSH 3.71 Heme: Monitor CBC and coags and continue with ferrous sulfate. Heme eval for thrombocytopenia GI prophylaxis with Protonix 40 milligrams daily. DVT prophylaxis with SCDs. Not on chemical anticoagulation given thrombocytopenia and history of hemorrhagic stroke. CCT 30 mins Mj Mcgraw MD Aug 17, 2016 08:28
[2016-08-17] MEDS: FERROUS SULFATE 300 MG /5ML UDC PO SCH ×2 (08:41→18:38)
[2016-08-17] MEDS: hydrALAZINE HCL 25 MG TAB PO SCH ×3 (08:41→18:38)
[2016-08-17] MEDS: levETIRAcetam 250 MG TAB PO SCH ×2 (08:42→20:57)
[2016-08-17] MEDS: VITAMIN B CMPLX/VITC/FOLIC AC CAP PO SCH (08:43)
[2016-08-17] MEDS: PANTOPRAZOLE SODIUM 40 MG VIAL IV SCH (08:43)
[2016-08-17] MEDS: lamoTRIgine 100 MG TAB PO SCH ×2 (09:00→20:57)
[2016-08-17] MEDS: LEVOTHYROXINE SODIUM 150 MCG TAB PO SCH (09:50)
[2016-08-17] MEDS ORDERED: INFLUENZA VIRUS VACCINE (QUADRIVALENT) 0.5 ML SYR IM ONE (10:00)
[2016-08-17] MEDS: PROPOFOL 1000 MG/100 ML INJ 100 ML IV SCH (15:32)
--- NOTE | 2016-08-17 22:20 | MB ---
cc: KAITY STINSON DATE OF CONSULTATION 08/17/2016 DATE OF 1940 REASON FOR CONSULTATION Patient with thrombocytopenia. CHIEF COMPLAINT The patient is currently intubated, sedated. HISTORY OF PRESENT ILLNESS This is a 76-year-old male with multiple medical problems who is currently acutely very ill and he has respiratory failure. He is currently intubated and is on mechanical ventilation. He has a past medical history of numerous medical problems including hypertension, history of intracranial hemorrhage in 2008, seizures, coronary artery disease, prostate cancer and hypothyroidism. He was brought to the [facility] Emergency Department with worsening dyspnea, congestion and fevers. The patient has a history of left hemiparesis after a hemorrhagic stroke and he has been wheelchair bound. Upon arrival to the [facility] Emergency Department he was found to be hypoxic and he was emergently intubated. He was found to have significant edema around his vocal cords. Chest x-ray showed left lung consolidation. CT angiogram was completed on admission which did not show a PE. He was found to have enlarged lymph node in the left axilla. I have been consulted to assess thrombocytopenia in this patient who is acutely ill. The patient is unable to answer my questions due to his clinical status. REVIEW OF SYSTEMS Unable to assess. PAST MEDICAL HISTORY The past medical history was reviewed from the medical record. He has a history of: 1. Hemorrhagic stroke, hemiparesis. 2. Hypertension. 3. Hypothyroidism. 4. Prostate cancer. 5. Coronary artery disease. 6. Seizures. 7. Chronic thrombocytopenia and anemia. PAST SURGICAL HISTORY 1. Cholecystectomy. 2. Craniotomy. 3. Hernia repair. ] 4. Partial colectomy for diverticular perforation. MEDICATIONS His medications include: 1. Aspirin. 2. Coreg. 3. Lamictal. 4. Levothyroxine. 5. Lasix. 6. Keppra. 7. Minoxidil. 8. Hydralazine. 9. Prednisone. ALLERGIES NO KNOWN DRUG ALLERGIES. FAMILY HISTORY AND SOCIAL HISTORY Unable to obtain due to his clinical status. He is intubated and sedated. PHYSICAL EXAMINATION VITAL SIGNS: Blood pressure is 144/65, pulse is in the 60s, temperature is 98.7, oxygen saturations are 98%. GENERAL: Elderly male who is acutely ill, currently intubated. HEENT: Pupils are equal, round, reactive to light. EOMI. No oral thrush. No oral lesions. NECK: Supple. No JVD, no bruits. No lymphadenopathy. CHEST: Bilateral scattered rhonchi. There is bilateral upper lobe wheezes. Diminished lower base breath sounds. ABDOMEN: Soft, nontender, nondistended. Bowel sounds are present. EXTREMITIES: Without any edema, erythema or cyanosis. SKIN: Without any petechiae lesion or bruises. NEUROLOGICAL: He is sedated and intubated. LABORATORY DATA WBC 9.9, hemoglobin is 9.8, platelet count 41. Serum chemistries show sodium of 140, potassium of 4.1, chloride 106, CO2 25.5, BUN is 17, creatinine 0.9. Lactic acid is 0.8, calcium is 8.2, phosphorus 3.1, magnesium is 2.0, alk phos is 123. Total protein 5.8, albumin is 3.1. TSH is 3.7. Coags show PT of 12.2, INR 1.1, PTT 28.5. IMAGING STUDIES Chest x-ray shows left lung consolidation. CT angiogram shows no evidence of pulmonary embolism. There is consolidation and volume loss in the left lower lung as well as the right lower lung. There are trace bilateral pleural effusions. There is enlarged large lymph nodes in the left axilla. ASSESSMENT/PLAN This is a 76-year-old male who presents with respiratory distress and he was intubated and sedated. He is acutely ill. I have been consulted to assess for thrombocytopenia. 1. Thrombocytopenia. Upon review of the patient's labs it appears that he has had thrombocytopenia in the past. In fact he was evaluated by my colleague several years ago and it was thought that his thrombocytopenia and anemia were related to medication effect. In 2015 his platelet count was 104,000. On this admission his platelet count is 50,000. This is certainly lower than previously documented platelet count. Differential here includes acute thrombocytopenia due to acute illness, DIC and consumption. This does not appear to be TTP however, I will evaluate his peripheral smear. We will check LDH and haptoglobin. Obtain a DIC panel. He is currently not bleeding. There is no need for any platelet transfusions. Will continue to monitor him closely. Avoid anticoagulation at this time. 2. Anemia with hemoglobin of 9.8. Obtain anemia studies. He has macrocytosis. Check B12 and folate level. Obtain a stool hemoccult. 3. Acute respiratory failure and pneumonia. The patient is currently intubated and sedated. He is currently on antibiotics. 4. History of hypothyroidism, currently on Synthroid. TSH was normal on this admission. Thank you for allowing me to participate in the care of this patient. I will continue to follow this patient along. MD MEG Lawson/YAJAIRA /3:20 PM /10:02 PM
[2016-08-18] VITALS (19 sets, daily range): BP systolic 132–184; BP diastolic 61–85; PULSE 43–84; RESP 14–18; TEMP 97–98.4; O2SAT 93–100
[2016-08-18] MEDS: PROPOFOL 1000 MG/100 ML INJ 100 ML IV SCH ×3 (00:35→11:21)
[2016-08-18] MEDS: INSULIN NovoLIN REGULAR SUPPLEMENTAL SCALE SQ SCH ×4 (00:36→18:00)
[2016-08-18] MEDS: RESP: ALBUTEROL 2.5 MG/IPRATROPIUM 0.5 MG NEB (SCH) INH ×4 (03:13→21:23)
--- NOTE | 2016-08-18 05:22 | RADRPT ---
EXAM DATE/TIME: 08/18/2016 04:39 [facility] COMPARISON: CHEST SINGLE AP, August 16, 2016, 10:18. INDICATIONS : Shortness of breath, possible pulmonary disease. MEDICAL HISTORY : Stroke. SURGICAL HISTORY : None. ENCOUNTER: Subsequent ACUITY: 2 days PAIN SCORE: Non-responsive. LOCATION: Bilateral chest FINDINGS: The support devices remain in place. There is no pneumothorax. There continue to be some bibasilar in filtrates. These findings are about the same compared to the prior exam. The heart size is enlarged b ut stable. No significant changes are demonstrated. CONCLUSION: No significant changes. Riky Melgar MD on August 18, 2016 at 5:20 Board Certified Radiologist. This report was verified electronically.
[2016-08-18] MEDS: methylPREDNISolone SOD SUCC 40 MG/1 ML VIAL IV PUSH SCH ×3 (05:55→22:14)
[2016-08-18] MEDS: PIPERACIL-TAZO 4.5 GM PREMIX 100 ML IV SCH ×4 (05:55→22:12)
[2016-08-18 06:35] LABS: AUTOMATED NEUTROPHIL # 5.7 TH/MM3 (1.8-7.7); HEMATOCRIT 27.6 % (39.0-51.0); LYMPH % 6.6 % (9.0-44.0); LYMPHOCYTE # 0.4 TH/MM3 (1.0-4.8); MEAN CELL VOLUME 97.9 FL (80.0-100.0); MEAN CORPUSCULAR HGB CONC 35.8 % (32.0-36.0); MONO % 4.4 % (0.0-8.0); PLATELET COUNT 46 TH/MM3 (150-450); RED BLOOD COUNT 2.82 MIL/MM3 (4.50-5.90); RED CELL DISTRIBUTION WIDTH 13.4 % (11.6-17.2); WHITE BLOOD COUNT 6.4 TH/MM3 (4.0-11.0)
[2016-08-18 06:40] LABS: HEMO FLAGS AUTO DIFF
[2016-08-18 07:03] LABS: RETIC % 1.5 % (0.4-3.0)
[2016-08-18 07:13] LABS: REVIEW FLAG FINAL
[2016-08-18 07:27] LABS: ANION GAP 6 MEQ/L (5-15); BICARBONATE 28.6 MEQ/L (21.0-32.0); BLOOD UREA NITROGEN 20 MG/DL (7-18); CHLORIDE 106 MEQ/L (98-107); GLOMERULAR FILTRATION RATE 83 ML/MIN (>89); LDH SERUM 167 U/L (87-241); MAGNESIUM 2.3 MG/DL (1.5-2.5); POTASSIUM 3.9 MEQ/L (3.5-5.1); SODIUM (NA) 141 MEQ/L (136-145); TRANSFERRIN IRON PROFILE 154 MG/DL (200-360)
[2016-08-18 08:06] LABS: ACANTHOCYTES OCC (NORMAL); PLATELET ESTIMATE SMEAR LOW (NORMAL); PLATELET MORPHOLOGY NORMAL (NORMAL); SCAN/DIFF AUTO DIFF CONFIRMED
[2016-08-18] MEDS: LEVOTHYROXINE SODIUM 150 MCG TAB PO SCH (09:27)
[2016-08-18] MEDS: lamoTRIgine 100 MG TAB PO SCH ×2 (09:27→22:13)
[2016-08-18] MEDS: levETIRAcetam 250 MG TAB PO SCH ×2 (09:27→22:13)
[2016-08-18] MEDS: hydrALAZINE HCL 25 MG TAB PO SCH ×3 (09:27→18:00)
[2016-08-18] MEDS: VITAMIN B CMPLX/VITC/FOLIC AC CAP PO SCH (09:27)
[2016-08-18] MEDS: FERROUS SULFATE 300 MG /5ML UDC PO SCH ×2 (09:27→18:00)
[2016-08-18] MEDS: PANTOPRAZOLE SODIUM 40 MG VIAL IV SCH (09:28)
--- NOTE | 2016-08-18 11:03 | HHI.CCPN ---
Subjective Remarks/Hospital Course The patient is a 76-year-old male with past medical history of hypertension, intracranial hemorrhage back in 2008, seizure, coronary artery disease, prostate CA and hypothyroidism. He presented to the [facility] Emergency Department with a history of cough, shortness of breath, congestion and subjective fever for the past week. The patient initially went to his primary care physician and was given azithromycin. However, his condition gradually worsened and this morning his decided to bring him to the hospital. 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 He only takes aspirin 81 milligrams every day. No history of chest pain, abdominal pain, nausea, vomiting or diarrhea. On arrival, he had a O2 saturation of 82% on room air. Due to worsening respiratory status, he was subsequently intubated with etomidate, succinylcholine and placed on full mechanical ventilation. According to the emergency department staff, the patient was a difficult intubation and required three attempts with a GlideScope and he was eventually intubated with a size 7.0 ET tube. He was noted to have significant edema around the vocal cords. In the emergency department, he was given bronchodilator treatment as well as vancomycin and Zosyn. His initial chest x-ray showed atelectasis versus mild consolation at the left lung base. A chest x-ray post-intubation showed the ET tube above the angely, patchy airspace consolidation left mid and lower lung zones. The patient also underwent CT angiogram of the chest to rule out PE which was a limited study due to severe respiratory and motion artifact. However, no PE is seen through the lobar vessels. There is a consolidation in the left lower lobe as well as right lower lobe and enlarged lymph nodes present in the left axilla. 08/17 No acute events overnight. Sedated with Diprivan and intubated. Afebrile. 08/18: On lightening sedation patient wakes up follows commands. Unable to confirm a cuff leak so no extubation today. Chest x-ray shows bibasilar infiltrates, patient has copious oral and ET tube secretions Objective Vital Signs Date Time Temp Pulse Resp B/P Pulse Ox O2 Delivery O2 Flow Rate FiO2 08/18/16 08:02 99 40 08/18/16 06:00 48 08/18/16 04:00 97.6 14 132/61 08/16/16 16:23 Ventilator 08/16/16 08:59 10 Intake and Output 08/17/16 08/17/16 08/18/16 08:00 16:00 00:00 Intake Total 648 ml 691 ml 977 ml Output Total 450 ml 421 ml 450 ml Balance 198 ml 270 ml 527 ml Result Diagram: 08/18/16 0515 08/18/16 0515 Other Results Microbiology Date/Time Procedure Status Source Growth 08/16/16 08:30 Influenza Types A,B Antigen (ELMER) - Final Complete Nasal Washing NEGATIVE FOR FLU A AND B ANTIGEN.... 08/16/16 08:30 Urine Culture - Final Complete Urine Catheterized Urine NO GROWTH IN 48 HOURS. Imaging Last Impressions Chest X-Ray 08/16/16 0819 Signed Impressions: Service Date/Time: Tuesday, August 16, 2016 08:32 - CONCLUSION: Underinflated examination with atelectasis versus mild consolidation at the left lung base. Shaquille Bustos MD CT Angiography 08/16/16 0000 Signed Impressions: Service Date/Time: Tuesday, August 16, 2016 11:06 - CONCLUSION: 1. Evaluation for PE is limited due to severe respiratory motion artifact and less than optimal contrast bolus timing. However, no PE is seen through the lobar vessels. More distal PE cannot be excluded based on this examination. 2. There is consolidation and volume loss in the left lower lobe as well as the right lower lobe. There are trace bilateral pleural effusions. 3. Enlarged lymph nodes are present in the left axilla with edema along the left chest wall. Suggest correlation with clinical history and exam. 4. There is free fluid in the visualized upper abdomen. Shaquille Bustos MD Objective Remarks GENERAL: Patient is 76yo intubated SKIN: Warm and dry. HEAD: Normocephalic. EYES: No scleral icterus. No injection or drainage. NECK: Supple, trachea midline. No JVD or lymphadenopathy. CARDIOVASCULAR: Regular rate and rhythm without murmurs, gallops, or rubs. RESPIRATORY: Breath sounds equal bilaterally. No accessory muscle use. No cuff leak GASTROINTESTINAL: Abdomen soft, non-tender, nondistended. MUSCULOSKELETAL: No cyanosis, or edema. Neuro: Sedated, intubated. Wakes up easily follows commands A/P Assessment and Plan Acute hypoxemic respiratory failure. Pneumonia. Laryngeal/vocal cord edema Anemia and thrombocytopenia. Hypertension. History of seizure and hemorrhagic stroke. Coronary artery disease. Prostate CA. Plan Neuro: Continue with Diprivan infusion for sedation and daily sedation vacation. Monitor neuro status closely. Continue with Keppra 500 mg BID and Lamictal 300 mg BID for underlying history of seizures. Pulm: Continue with vent support and maintain saturations above 92%. Bronchodilators, ICU vent bundle. Continue with IV steroids, Solu-Medrol 60 mg q.8 for laryngeal edema. Add Benadryl 25 mg IV q6 Daily C Pap trials with cuff leak check- no cuff leak today CV: Monitor HR and BP and maintain MAP > 65 mmHg. On hydralazine 25 mg TID. Lactic acid level measured at 0.8. : Monitor renal function, intakes and outputs and electrolyte replacement as needed. GI: Continue with TF feeds-Glucerna 1.5 with goal rate of 45 mL/hour. Protonix 40 mg IV daily for GI prophylaxis. ID: Continue with abx(Zosyn) and monitor for signs of infection( fever and WBCs) . Given Vancomycin and Zosyn in ED. Follow up on cxs Nasal washing for influenza is negative. Check sputum culture Endo: SSI with Accu-Chek q. 6 hours for glycemic control. On Synthroid 150 micrograms p.o. daily. TSH 3.71 Heme: Monitor CBC and coags and continue with ferrous sulfate. Heme eval for thrombocytopenia GI prophylaxis with Protonix 40 milligrams daily. DVT prophylaxis with SCDs. Not on chemical anticoagulation given thrombocytopenia and history of hemorrhagic stroke. CCT 30 mins Rachel Corbin MD Aug 18, 2016 11:02
[2016-08-18] MEDS: fentaNYL DRIP 250 ML IV SCH ×2 (11:20→22:14)
[2016-08-18] MEDS ORDERED: fentaNYL 2,500 MCG/NS 250 ML IV SCH (11:30)
--- NOTE | 2016-08-18 11:56 | PD.ONC.PN ---
Subjective Subjective Remarks Afebrile overnight. Patient sedated, intubated. No overnight events. at bedside. Objective Data Date Time Temp Pulse Resp B/P Pulse Ox O2 Delivery O2 Flow Rate FiO2 08/18/16 11:40 98 40 08/18/16 10:30 99 40 08/18/16 08:02 99 40 08/18/16 06:00 48 08/18/16 04:02 97 40 08/18/16 04:00 48 08/18/16 04:00 97.6 48 14 132/61 97 08/18/16 01:15 98 40 08/18/16 00:00 48 08/18/16 00:00 97.0 50 14 150/71 98 08/17/16 22:10 96 40 08/17/16 22:00 64 08/17/16 20:45 95 40 08/17/16 20:00 98.6 50 14 115/56 98 08/17/16 20:00 64 08/17/16 18:00 73 08/17/16 18:00 99.1 69 19 146/71 97 08/17/16 17:00 98.9 61 17 135/61 98 08/17/16 16:00 99.0 61 20 142/55 98 08/17/16 16:00 73 08/17/16 15:25 99 40 08/17/16 15:00 99.6 60 20 141/64 92 08/17/16 14:00 99.0 62 18 140/63 91 08/17/16 14:00 63 08/17/16 13:00 99.6 60 14 132/63 98 08/17/16 12:00 63 08/17/16 12:00 98.7 63 18 144/65 98 08/17/16 11:51 98 40 08/18/16 08/18/16 08/18/16 07:00 15:00 23:00 Intake Total 856 ml Output Total 350 ml Balance 506 ml Result Diagram: 08/18/1651408/18/16514 Laboratory Results Laboratory Tests Test 08/18/16 08/18/16 00:21 05:15 Blood Type A POSITIVE Direct Antiglobulin Test NEGATIVE (Tomas) White Blood Count 6.4 TH/MM3 Red Blood Count 2.82 MIL/MM3 Hemoglobin 9.9 GM/DL Hematocrit 27.6 % Mean Corpuscular Volume 97.9 FL Mean Corpuscular Hemoglobin 35.0 PG Mean Corpuscular Hemoglobin 35.8 % Concent Red Cell Distribution Width 13.4 % Platelet Count 46 TH/MM3 Mean Platelet Volume 9.6 FL Neutrophils (%) (Auto) 89.0 % Lymphocytes (%) (Auto) 6.6 % Monocytes (%) (Auto) 4.4 % Eosinophils (%) (Auto) 0.0 % Basophils (%) (Auto) 0.0 % Neutrophils # (Auto) 5.7 TH/MM3 Lymphocytes # (Auto) 0.4 TH/MM3 Monocytes # (Auto) 0.3 TH/MM3 Eosinophils # (Auto) 0.0 TH/MM3 Basophils # (Auto) 0.0 TH/MM3 CBC Comment AUTO DIFF Differential Comment AUTO DIFF CONFIRMED Platelet Estimate LOW Platelet Morphology Comment NORMAL Acanthocytes OCC Blood Smear Pathologist Review Reticulocyte Count 1.5 % Absolute Reticulocyte Count 41.9 MIL/L Haptoglobin 105 MG/DL Fibrinogen 147 mg/dL Sodium Level 141 MEQ/L Potassium Level 3.9 MEQ/L Chloride Level 106 MEQ/L Carbon Dioxide Level 28.6 MEQ/L Anion Gap 6 MEQ/L Blood Urea Nitrogen 20 MG/DL Creatinine 0.89 MG/DL Estimat Glomerular Filtration 83 ML/MIN Rate Random Glucose 157 MG/DL Calcium Level 8.1 MG/DL Phosphorus Level 2.8 MG/DL Magnesium Level 2.3 MG/DL Iron Level 36 MCG/DL Total Iron Binding Capacity 216 MCG/DL Percent Iron Saturation 16.7 % Transferrin 154 MG/DL Lactate Dehydrogenase 167 U/L Vitamin B12 Level 730 PG/ML Culture Results Microbiology Date/Time Procedure Status Source Growth 08/16/16 08:20 Aerobic Blood Culture - Preliminary Resulted Blood Peripheral NO GROWTH IN 2 DAYS 08/16/16 08:20 Anaerobic Blood Culture - Preliminary Resulted Blood Peripheral NO GROWTH IN 2 DAYS 08/16/16 08:23 Aerobic Blood Culture - Preliminary Resulted Blood Peripheral NO GROWTH IN 2 DAYS 08/16/16 08:23 Anaerobic Blood Culture - Preliminary Resulted Blood Peripheral NO GROWTH IN 2 DAYS 08/16/16 08:30 Influenza Types A,B Antigen (ELMER) - Final Complete Nasal Washing NEGATIVE FOR FLU A AND B ANTIGEN.... 08/16/16 08:30 Urine Culture - Final Complete Urine Catheterized Urine NO GROWTH IN 48 HOURS. Imaging Studies Last 24 hours Impressions Chest X-Ray 08/18/16 0000 Signed Impressions: Service Date/Time: Thursday, August 18, 2016 04:39 - CONCLUSION: No significant changes. Riky Melgar MD Administered Medications Medications (Trade) Dose Ordered Sig/Matteo Route PRN Reason Start Time Stop Time Status Last Admin Dose Admin Propofol (Diprivan 1000 Mg/100ml Inj) 100 ml @ 0 mls/hr TITRATE IV 08/16/16 09:45 08/18/16 11:21 Pantoprazole Sodium (Protonix Inj) 40 mg DAILY IV 08/16/16 13:15 08/18/16 09:28 Chlorhexidine Gluconate (Chlorhexidine 2% Cloth) 3 pack Taper DAILY@04 TOP 08/17/16 04:00 08/13/17 03:59 08/17/16 04:00 Methylprednisolone Sodium Succinate 60 mg 60 mg Q8HR IV PUSH 08/16/16 14:00 08/18/16 05:55 Piperacillin Sod/ Tazobactam Sod (Zosyn 4.5 Gm Premix) 100 ml @ 200 mls/hr Q6H IV 08/16/16 14:00 08/18/16 09:28 Ferrous Sulfate (Ferrous Sulfate Liq) 130 mg BIDPC PO 08/16/16 18:00 08/18/16 09:27 Hydralazine HCl (Apresoline) 25 mg TID PO 08/16/16 18:00 08/18/16 09:27 Lamotrigine (LaMICtal) 300 mg BID PO 08/16/16 21:00 08/18/16 09:27 Levetriacetam (Keppra) 500 mg BID PO 08/16/16 21:00 08/18/16 09:27 Levothyroxine Sodium (Synthroid) 150 mcg DAILY PO 08/17/16 09:00 08/18/16 09:27 Vitamin B Complex/ Vit C/Folic Acid (Nephrocaps) 1 cap DAILY PO 08/17/16 09:00 08/18/16 09:27 Insulin Human Regular 1 1 Q6HR SQ 08/16/16 18:00 08/18/16 05:56 Fentanyl Citrate (fentaNYL DRIP) 250 ml @ 0 mls/hr TITRATE IV 08/18/16 11:15 08/18/16 11:20 Objective Remarks GENERAL: Elderly male, lying in bed, OT intubated, sedated. SKIN: Warm and dry. HEAD: Normocephalic. EYES: No injection or drainage. NECK: Supple, trachea midline. CARDIOVASCULAR: Regular rate and rhythm. RESPIRATORY: anterior lakhani clear. on CPAP GASTROINTESTINAL: Abdomen soft, nondistended. EXTREMITIES: No cyanosis NEUROLOGICAL: sedated, intubated. Assessment/Plan Problem List: (1) Thrombocytopenia Status: Acute Plan: --acute thrombocytopenia due to acute illness, DIC and consumption. --does not appear to be TTP --peripheral smear pending. --LDH/Haptoglobin -WNL --DIC panel--showed low fibrinogen. coags pending for today. --RADHA negative --CTA--> no evidence of PE. + consolidation and volume loss in the left lower lung as well as the right lower lung. +trace bilateral pleural effusions. + enlarged large lymph nodes in the left axilla. (2) Normocytic anemia Status: Acute Plan: --B12 WNL --stool hemoccult --iron studies more consistent with ACD (3) Pneumonia Status: Acute Plan: --intubated/sedated --on abx. --BC no growth. Assessment 76y/o critically ill in [facility] [place], [place]. Hematology consulted for thrombocytopenia. h/o Hemorrhagic stroke, hemiparesis. Hypertension. Hypothyroidism. Prostate cancer. Coronary artery disease. Seizures. Chronic thrombocytopenia and anemia. Plan 1. monitor CBC 2. no transfusion needed 3. antibiotics per primary Attending Statement The exam, history, and the medical decision-making described in the above note were completed with the assistance of the mid-level provider. I reviewed and agree with the findings presented. I attest that I had a [id number] encounter with the patient on the same day, and personally performed and documented my assessment and findings in the medical record. Thrombocytopenia due to DIC and consumption. Low fibrinogen. Will give cryoprecipitate if fibrinogen less than 130. get abodminal U/S to assess spleen size. no evidence of hemolysis. No evidence of MAHA or TTP. No RBC fragments seen on peripheral smear. continue supportive care Mary Shaikh Aug 18, 2016 11:56 Rahul Londono MD Aug 18, 2016 22:59
[2016-08-18 15:51] LABS: APTT (PATIENT) 27.1 SEC (24.3-30.1); INTERNATIONAL NORMALIZED RATIO 1.1 RATIO; PROTHROMBIN TIME - PATIENT 12.4 SEC (9.8-11.6)
--- NOTE | 2016-08-18 22:01 | EKG ---
Date Performed: 08/16/2016 Time Performed: 08:24:01 PTAGE: 76 years EKG: Sinus rhythm MARKED RIGHT AXIS DEVIATION POSSIBLE ANTERIOR MYOCARDIAL INFARCTION ABNORMAL ECG PREVIOUS TRACING : 09/24/2011 21.47 Compared to the previous tracing, R wave progression rotate d laterally DOCTOR: Nick Leary Interpretating Date/Time 08/18/2016 21:59:40
[2016-08-18] MEDS: hydrALAZINE HCL 20 MG/ML VIAL IV PUSH PRN (22:14)
[2016-08-18] MEDS: CHLORHEXIDINE GLUCONATE 2 % 1 PACK (2 CLOTHS) TOP SCH (22:15)
[2016-08-19] VITALS (17 sets, daily range): BP systolic 147–173; BP diastolic 70–84; PULSE 47–70; RESP 14–21; TEMP 97.6–99.1; O2SAT 94–100
[2016-08-19] MEDS: PIPERACIL-TAZO 4.5 GM PREMIX 100 ML IV SCH ×4 (02:23→21:46)
[2016-08-19] MEDS: RESP: ALBUTEROL 2.5 MG/IPRATROPIUM 0.5 MG NEB (SCH) INH ×4 (03:25→20:49)
[2016-08-19 04:34] LABS: AUTOMATED NEUTROPHIL # 8.2 TH/MM3 (1.8-7.7); HEMATOCRIT 31.1 % (39.0-51.0); LYMPH % 4.2 % (9.0-44.0); LYMPHOCYTE # 0.4 TH/MM3 (1.0-4.8); MEAN CELL VOLUME 98.4 FL (80.0-100.0); MEAN CORPUSCULAR HEMOGLOBIN 34.6 PG (27.0-34.0); MEAN CORPUSCULAR HGB CONC 35.2 % (32.0-36.0); MONO % 3.8 % (0.0-8.0); PLATELET COUNT 61 TH/MM3 (150-450); RED BLOOD COUNT 3.16 MIL/MM3 (4.50-5.90); RED CELL DISTRIBUTION WIDTH 13.4 % (11.6-17.2)
[2016-08-19 04:40] LABS: HEMO FLAGS AUTO DIFF
[2016-08-19] MEDS: hydrALAZINE HCL 20 MG/ML VIAL IV PUSH PRN ×2 (05:23→21:47)
[2016-08-19] MEDS: methylPREDNISolone SOD SUCC 40 MG/1 ML VIAL IV PUSH SCH (05:23)
[2016-08-19] MEDS: fentaNYL DRIP 250 ML IV SCH (05:50)
[2016-08-19] MEDS: INSULIN NovoLIN REGULAR SUPPLEMENTAL SCALE SQ SCH ×4 (06:00→18:00)
[2016-08-19 08:34] LABS: PLATELET ESTIMATE SMEAR LOW (NORMAL); PLATELET MORPHOLOGY NORMAL (NORMAL); SCAN/DIFF AUTO DIFF CONFIRMED
[2016-08-19] MEDS: levETIRAcetam 250 MG TAB PO SCH ×2 (09:00→21:47)
[2016-08-19] MEDS: lamoTRIgine 100 MG TAB PO SCH ×2 (09:00→21:46)
[2016-08-19] MEDS: VITAMIN B CMPLX/VITC/FOLIC AC CAP PO SCH (09:00)
[2016-08-19] MEDS: FERROUS SULFATE 300 MG /5ML UDC PO SCH ×2 (09:00→18:00)
[2016-08-19] MEDS: hydrALAZINE HCL 25 MG TAB PO SCH ×3 (09:00→18:00)
[2016-08-19] MEDS: PANTOPRAZOLE SODIUM 40 MG VIAL IV SCH (09:00)
[2016-08-19] MEDS: LEVOTHYROXINE SODIUM 150 MCG TAB PO SCH (09:00)
--- NOTE | 2016-08-19 09:55 | RADRPT ---
EXAM DATE/TIME: 08/19/2016 08:19 [place] COMPARISON: CT PULMONARY ANGIOGRAM, August 16, 2016, 11:06. INDICATIONS : Increased lab values. MEDICAL HISTORY : Myocardial infarction. Hypercholesterolemia. Hypertension. CVA. Seizures. Diverticulitis. GERD. Prost ate cancer. Arthritis. SURGICAL HISTORY : Cholecystectomy. Craniotomy. Colectomy. Prostate seed implants. ENCOUNTER: Subsequent ACUITY: 1 day PAIN SCORE: Nonresponsive. LOCATION: Abdomen. MEASUREMENTS: LIVER: 20.0 cm length COMMON DUCT: 6 mm RIGHT KIDNEY: 11.3 x 5.8 x 5.0 cm SPLEEN: 14.6 cm length FINDINGS: Gallbladder is surgically absent with normal bile ducts. Liver is enlarged and somewhat nodular vipul ns with homogeneous increased echogenicity. and there is accompanying splenomegaly as well as ascitic fluid around the liver and spleen and in the pelvis. Right pleural effusion is appreciated on this i s a CONCLUSION: Hepatosplenomegaly with somewhat nodular liver increased echogenicity and ascitic fluid consistent wi th cirrhosis hepatocellular disease Trey Shine MD on August 19, 2016 at 9:50 Board Certified Radiologist. This report was verified electronically.
--- NOTE | 2016-08-19 13:42 | HHI.CCPN ---
Subjective Remarks/Hospital Course The patient is a 76-year-old male with past medical history of hypertension, intracranial hemorrhage back in 2008, seizure, coronary artery disease, prostate CA and hypothyroidism. He presented to the [facility] Emergency Department with a history of cough, shortness of breath, congestion and subjective fever for the past week. The patient initially went to his primary care physician and was given azithromycin. However, his condition gradually worsened and this morning his decided to bring him to the hospital. 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 He only takes aspirin 81 milligrams every day. No history of chest pain, abdominal pain, nausea, vomiting or diarrhea. On arrival, he had a O2 saturation of 82% on room air. Due to worsening respiratory status, he was subsequently intubated with etomidate, succinylcholine and placed on full mechanical ventilation. According to the emergency department staff, the patient was a difficult intubation and required three attempts with a GlideScope and he was eventually intubated with a size 7.0 ET tube. He was noted to have significant edema around the vocal cords. In the emergency department, he was given bronchodilator treatment as well as vancomycin and Zosyn. His initial chest x-ray showed atelectasis versus mild consolation at the left lung base. A chest x-ray post-intubation showed the ET tube above the angely, patchy airspace consolidation left mid and lower lung zones. The patient also underwent CT angiogram of the chest to rule out PE which was a limited study due to severe respiratory and motion artifact. However, no PE is seen through the lobar vessels. There is a consolidation in the left lower lobe as well as right lower lobe and enlarged lymph nodes present in the left axilla. 08/17 No acute events overnight. Sedated with Diprivan and intubated. Afebrile. 08/18: On lightening sedation patient wakes up follows commands. Unable to confirm a cuff leak so no extubation today. Chest x-ray shows bibasilar infiltrates, patient has copious oral and ET tube secretions 08/19: Patient tolerating C-peptide wide awake and following commands. Secretions have decreased. Cuff leak, will proceed with weaning trials. Platelet count slightly improved to 61 Objective Vital Signs Date Time Temp Pulse Resp B/P Pulse Ox O2 Delivery O2 Flow Rate FiO2 08/19/16 10:00 58 08/19/16 09:17 95 4 08/19/16 09:17 Nasal Cannula 08/19/16 08:00 98.4 16 171/80 08/19/16 05:33 40 Intake and Output 08/18/16 08/18/16 08/19/16 08:00 16:00 00:00 Intake Total 856 ml 1244 ml 959 ml Output Total 350 ml 350 ml 450 ml Balance 506 ml 894 ml 509 ml Result Diagram: 08/19/16 0331 08/18/16 0515 Other Results Microbiology Date/Time Procedure Status Source Growth 08/19/16 02:30 Stool Occult Blood (ELMER) - Final Complete Stool Stool HEMOCCULT NEGATIVE Imaging Last Impressions Chest X-Ray 08/16/16818 Signed Impressions: Service Date/Time: Tuesday, August 16, 2016 08:32 - CONCLUSION: Underinflated examination with atelectasis versus mild consolidation at the left lung base. Shaquille Bustos MD CT Angiography 08/16/16 0000 Signed Impressions: Service Date/Time: Tuesday, August 16, 2016 11:06 - CONCLUSION: 1. Evaluation for PE is limited due to severe respiratory motion artifact and less than optimal contrast bolus timing. However, no PE is seen through the lobar vessels. More distal PE cannot be excluded based on this examination. 2. There is consolidation and volume loss in the left lower lobe as well as the right lower lobe. There are trace bilateral pleural effusions. 3. Enlarged lymph nodes are present in the left axilla with edema along the left chest wall. Suggest correlation with clinical history and exam. 4. There is free fluid in the visualized upper abdomen. Shaquille Bustos MD Objective Remarks GENERAL: Patient is 76yo intubated, wakes up easily and follows commands SKIN: Warm and dry. HEAD: Normocephalic. EYES: No scleral icterus. No injection or drainage. ENT: Orotracheally intubated. Positive cuff leak NECK: Supple, trachea midline. No JVD or lymphadenopathy. CARDIOVASCULAR: Regular rate and rhythm without murmurs, gallops, or rubs. RESPIRATORY: Breath sounds equal bilaterally. No accessory muscle use. GASTROINTESTINAL: Abdomen soft, non-tender, nondistended. MUSCULOSKELETAL: No cyanosis, or edema. Neuro: Sedated, intubated. Wakes up easily follows commands A/P Assessment and Plan Assessment: Acute hypoxemic respiratory failure Pneumonia Laryngeal/vocal cord edema Anemia and thrombocytopenia Hypertension History of seizure and hemorrhagic stroke Coronary artery disease Prostate CA Plan Neuro: Hold all sedation for extubation trials Monitor neuro status closely. Continue with Keppra 500 mg BID and Lamictal 300 mg BID for underlying history of seizures. Pulm: SBT with possible extubation given good cuff leak today Bronchodilators, ICU vent bundle. On IV steroids, Solu-Medrol 60 mg q.8 for laryngeal edema-change to prednisone 20 mg daily CV: Monitor HR and BP and maintain MAP > 65 mmHg. On hydralazine 25 mg TID. Lactic acid level measured at 0.8. : Monitor renal function, intakes and outputs and electrolyte replacement as needed. GI: Hold tube feeds for extubation Protonix 40 mg IV daily for GI prophylaxis. ID: Continue with abx(Zosyn) and monitor for signs of infection( fever and WBCs) . Given Vancomycin and Zosyn in ED. Follow up on cxs Nasal washing for influenza is negative. Endo: SSI with Accu-Chek q. 6 hours for glycemic control. On Synthroid 150 micrograms p.o. daily. TSH 3.71 Heme: Monitor CBC and coags and continue with ferrous sulfate. Heme following for thrombocytopenia GI prophylaxis with Protonix 40 milligrams daily. DVT prophylaxis with SCDs. Not on chemical anticoagulation given thrombocytopenia and history of hemorrhagic stroke. Level 3 Rachel Corbin MD Aug 19, 2016 13:42
--- NOTE | 2016-08-19 15:29 | PD.ONC.PN ---
Subjective Subjective Remarks Afebrile overnight. Patient resting comfortably. Now on NC. at bedside. Objective Data Date Time Temp Pulse Resp B/P Pulse Ox O2 Delivery O2 Flow Rate FiO2 08/19/16 10:00 58 08/19/16 09:17 95 4 08/19/16 09:17 95 Nasal Cannula 4.00 08/19/16 08:00 70 08/19/16 08:00 98.4 70 16 171/80 98 08/19/16 06:00 58 08/19/16 05:33 99 40 08/19/16 04:00 98.3 47 14 159/72 97 08/19/16 04:00 47 08/19/16 03:22 100 40 08/19/16 02:00 54 08/19/16 00:00 97.6 60 19 147/70 98 08/19/16 00:00 60 08/18/16 23:42 99 40 08/18/16 22:00 59 08/18/16 21:24 100 40 08/18/16 20:00 98.4 57 15 184/78 98 08/18/16 20:00 57 08/18/16 18:00 80 08/18/16 16:45 97 40 08/18/16 16:00 57 08/18/16 16:00 97.6 54 15 154/73 96 08/19/16 08/19/16 08/19/16 07:00 15:00 23:00 Intake Total 598 ml Output Total 450 ml Balance 148 ml Result Diagram: 08/19/16 0331 08/18/16 0515 Laboratory Results Laboratory Tests Test 08/19/16 03:31 White Blood Count 9.0 TH/MM3 Red Blood Count 3.16 MIL/MM3 Hemoglobin 11.0 GM/DL Hematocrit 31.1 % Mean Corpuscular Volume 98.4 FL Mean Corpuscular Hemoglobin 34.6 PG Mean Corpuscular Hemoglobin 35.2 % Concent Red Cell Distribution Width 13.4 % Platelet Count 61 TH/MM3 Mean Platelet Volume 9.8 FL Neutrophils (%) (Auto) 92.0 % Lymphocytes (%) (Auto) 4.2 % Monocytes (%) (Auto) 3.8 % Eosinophils (%) (Auto) 0.0 % Basophils (%) (Auto) 0.0 % Neutrophils # (Auto) 8.2 TH/MM3 Lymphocytes # (Auto) 0.4 TH/MM3 Monocytes # (Auto) 0.3 TH/MM3 Eosinophils # (Auto) 0.0 TH/MM3 Basophils # (Auto) 0.0 TH/MM3 CBC Comment AUTO DIFF Differential Comment AUTO DIFF CONFIRMED Platelet Estimate LOW Platelet Morphology Comment NORMAL Culture Results Microbiology Date/Time Procedure Status Source Growth 08/19/16 02:30 Stool Occult Blood (ELMER) - Final Complete Stool Stool HEMOCCULT NEGATIVE Imaging Studies Last 24 hours Impressions Liver Ultrasound 08/19/16 0000 Signed Impressions: Service Date/Time: Friday, August 19, 2016 08:19 - CONCLUSION: Hepatosplenomegaly with somewhat nodular liver increased echogenicity and ascitic fluid consistent with cirrhosis hepatocellular disease Trey Shine MD Administered Medications Medications (Trade) Dose Ordered Sig/Matteo Route PRN Reason Start Time Stop Time Status Last Admin Dose Admin Pantoprazole Sodium (Protonix Inj) 40 mg DAILY IV 08/16/16 13:15 08/18/16 09:28 Chlorhexidine Gluconate 3 pack 3 pack Taper DAILY@04 TOP 08/17/16 04:00 08/13/17 03:59 08/18/16 22:15 Piperacillin Sod/ Tazobactam Sod (Zosyn 4.5 Gm Premix) 100 ml @ 200 mls/hr Q6H IV 08/16/16 14:00 08/19/16 14:00 Ferrous Sulfate (Ferrous Sulfate Liq) 130 mg BIDPC PO 08/16/16 18:00 08/18/16 18:00 Hydralazine HCl (Apresoline) 25 mg TID PO 08/16/16 18:00 08/19/16 13:00 Lamotrigine (LaMICtal) 300 mg BID PO 08/16/16 21:00 08/18/16 22:13 Levetriacetam (Keppra) 500 mg BID PO 08/16/16 21:00 08/18/16 22:13 Levothyroxine Sodium (Synthroid) 150 mcg DAILY PO 08/17/16 09:00 08/18/16 09:27 Vitamin B Complex/ Vit C/Folic Acid (Nephrocaps) 1 cap DAILY PO 08/17/16 09:00 08/18/16 09:27 Insulin Human Regular (NovoLIN R SUPPLEMENTAL SCALE) 1 Q6HR SQ 08/16/16 18:00 08/18/16 13:15 Hydralazine HCl (Apresoline Inj) 10 mg Q6H PRN IV PUSH SYS BP GREATER THAN 160 MMHG 08/16/16 17:00 08/19/16 05:23 Objective Remarks GENERAL: Elderly male, sitting up in bed, on 4L O2 via NC SKIN: Warm and dry. HEAD: Normocephalic. EYES: No injection or drainage. NECK: Supple, trachea midline. CARDIOVASCULAR: Regular rate and rhythm RESPIRATORY: diminished at bases. coarse rhonchi. On 4L O2 GASTROINTESTINAL: Abdomen soft, non-tender, nondistended. EXTREMITIES: No cyanosis NEUROLOGICAL: awake and alert, normal speech. Assessment/Plan Problem List: (1) Thrombocytopenia Status: Acute Plan: --acute thrombocytopenia due to acute illness, DIC and consumption. --does not appear to be TTP --peripheral smear pending. --LDH/Haptoglobin -WNL --DIC panel--showed low fibrinogen. coags pending for today. --RADHA negative --CTA--> no evidence of PE. + consolidation and volume loss in the left lower lung as well as the right lower lung. +trace bilateral pleural effusions. + enlarged large lymph nodes in the left axilla. --U/S abdomen shows hepatosplenomegaly--likely causing a low platelet count at baseline. (2) Normocytic anemia Status: Acute Plan: --B12 WNL --stool hemoccult --iron studies more consistent with ACD (3) Pneumonia Status: Acute Plan: --on abx. --BC no growth. Assessment 76y/o critically ill in [facility]. Hematology consulted for thrombocytopenia. h/o Hemorrhagic stroke, hemiparesis. Hypertension. Hypothyroidism. Prostate cancer. Coronary artery disease. Seizures. Chronic thrombocytopenia and anemia. Plan 1. consult GI: patient has no know history of cirrhosis per 2. hepatitis panel 3. monitor CBC Attending Statement The exam, history, and the medical decision-making described in the above note were completed with the assistance of the mid-level provider. I reviewed and agree with the findings presented. I attest that I had a [id number] encounter with the patient on the same day, and personally performed and documented my assessment and findings in the medical record. U/S abdomen shows liver cirrhosis and splenomegaly. likely responsible for chronic thrombocytopenia. extubated today. PLt count improving Mary Shaikh Aug 19, 2016 15:29 Rahul Londono MD Aug 19, 2016 22:04
--- NOTE | 2016-08-19 20:07 | MB ---
cc: RENÉE EMMANUEL M.D., [place] DATE OF CONSULTATION 08/19/[address] Rakesh Barajas REASON FOR CONSULTATION Hepatosplenomegaly, liver cirrhosis. HISTORY OF THE PRESENT ILLNESS Mr. Donovan Valles is a 76-year-old gentleman with multiple medical problems, admitted to the hospital with respiratory failure, intubated, currently extubated. The patient was noted to have thrombocytopenia. Hematology oncology consultation was called. During his evaluation he underwent a CT angiogram and a liver ultrasound suggestive of hepatosplenomegaly and increased echogenicity of the liver and ascitic fluid consistent with cirrhosis of the liver. The patient is accompanied by his at this time. There is no history of previous liver issues as far as they remember. He was never told he has cirrhosis. There is a history of potential alcohol use earlier in his life but not recently. There is no history of previous jaundice or hepatitis. He denies any nausea, vomiting, abdominal pain, melena, hematemesis, hematochezia, dysphagia, odynophagia. He does have a history of diverticulitis status post partial colectomy. Last colonoscopy done by Dr. Malagon, according to him it was normal. PAST MEDICAL HISTORY 1. Morbid obesity. 2. Hypertension. 3. diverticulitis 4. Prostate cancer. 5. Coronary artery disease. 6. Seizure disorder. 7. History of hemorrhagic stroke with residual left hemiparesis. PAST SURGICAL HISTORY 1. Cholecystectomy. 2. Craniotomy. 3. Hernia repair. 4. Partial colectomy for diverticular perforation. ALLERGIES NO KNOWN ALLERGIES. FAMILY HISTORY Noncontributory. MEDICATIONS At home: 1. Aspirin. 2. Coreg. 3. Lamictal. 4. ALLERGIES No known allergies. FAMILY HISTORY Noncontributory. MEDICATIONS Home 1. Aspirin. 2. Coreg. 3. Lamictal. 4. . 5. Lasix. 6. Keppra. 7. Minoxidil. 8. Hydralazine. 9. Prednisone. 10. Azithromycin. PHYSICAL EXAMINATION GENERAL: On clinical examination he is sitting comfortably in bed in no acute distress. He is obese. VITAL SIGNS: Temperature is 98.7, heart rate is 58, respiratory rate 18__, blood pressure 168/80. HEENT: Pupils equal, round, reactive to light and accommodation. NECK: No JVD. No lymphadenopathy. CHEST: Clear to auscultation and percussion. CARDIOVASCULAR: S1-S2. No murmur. ABDOMEN: Soft. Obese. Bowel sounds are present. CENTRAL NERVOUS SYSTEM: Awake, alert, oriented times three. Left-sided hemiparesis. LABORATORY DATA Hemoglobin is 9, white count is 11, platelet 61. PT/INR normal. His chemistry suggestive of liver enzymes normal. Albumin is 3.1. IMAGING His liver ultrasound as mentioned. IMPRESSION Mr. Valles is a very pleasant 76-year-old gentleman with multiple medical problems admitted to hospital with respiratory failure noted to have thrombocytopenia. CT and abdominal ultrasound showing possible cirrhosis. RECOMMENDATIONS We are going to send additional blood work that will investigate for autoimmune diseases. Already iron profile, hepatitis profile sent. Supportive care. Suspect possible liver cirrhosis secondary to fatty liver disease. If discharge follow-up office Not much to add at this point from gi point recommend further investigations as an op unless indicated otherwise Further recommendation will depend on the patient's clinical status and the above results. I like to thank Dr. Rachel Corbin for referring him to our office for consultation. MD JACKIE CastroB/YAJAIRA /7:30 PM /7:41 PM MTDD
[2016-08-19] MEDS: predniSONE 20 MG TAB PO SCH (21:46)
[2016-08-20] VITALS (13 sets, daily range): BP systolic 154–196; BP diastolic 70–107; PULSE 58–79; RESP 16–28; TEMP 98–99.1; O2SAT 93–100
[2016-08-20] MEDS: PIPERACIL-TAZO 4.5 GM PREMIX 100 ML IV SCH ×4 (02:00→20:36)
[2016-08-20] MEDS: RESP: ALBUTEROL 2.5 MG/IPRATROPIUM 0.5 MG NEB (SCH) INH ×4 (03:54→21:34)
[2016-08-20] MEDS: CHLORHEXIDINE GLUCONATE 2 % 1 PACK (2 CLOTHS) TOP SCH (04:00)
[2016-08-20] MEDS: INSULIN NovoLIN REGULAR SUPPLEMENTAL SCALE SQ SCH ×4 (06:00→18:00)
[2016-08-20] MEDS: hydrALAZINE HCL 20 MG/ML VIAL IV PUSH PRN ×2 (06:43→10:45)
[2016-08-20] MEDS: hydrALAZINE HCL 25 MG TAB PO SCH ×3 (08:52→18:00)
[2016-08-20] MEDS: FERROUS SULFATE 300 MG /5ML UDC PO SCH ×2 (08:52→18:00)
[2016-08-20] MEDS: levETIRAcetam 250 MG TAB PO SCH ×2 (08:53→20:34)
[2016-08-20] MEDS: LEVOTHYROXINE SODIUM 150 MCG TAB PO SCH (08:53)
[2016-08-20] MEDS: VITAMIN B CMPLX/VITC/FOLIC AC CAP PO SCH (08:53)
[2016-08-20] MEDS: lamoTRIgine 100 MG TAB PO SCH ×2 (08:53→20:34)
[2016-08-20] MEDS: PANTOPRAZOLE SODIUM 40 MG VIAL IV SCH (08:53)
[2016-08-20] MEDS: predniSONE 20 MG TAB PO SCH ×2 (08:54→20:34)
--- NOTE | 2016-08-20 09:26 | HHI.CCPN ---
Subjective Remarks/Hospital Course The patient is a 76-year-old male with past medical history of hypertension, intracranial hemorrhage back in 2008, seizure, coronary artery disease, prostate CA and hypothyroidism. He presented to the [facility] Emergency Department with a history of cough, shortness of breath, congestion and subjective fever for the past week. The patient initially went to his primary care physician and was given azithromycin. However, his condition gradually worsened and this morning his decided to bring him to the hospital. 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 He only takes aspirin 81 milligrams every day. No history of chest pain, abdominal pain, nausea, vomiting or diarrhea. On arrival, he had a O2 saturation of 82% on room air. Due to worsening respiratory status, he was subsequently intubated with etomidate, succinylcholine and placed on full mechanical ventilation. According to the emergency department staff, the patient was a difficult intubation and required three attempts with a GlideScope and he was eventually intubated with a size 7.0 ET tube. He was noted to have significant edema around the vocal cords. In the emergency department, he was given bronchodilator treatment as well as vancomycin and Zosyn. His initial chest x-ray showed atelectasis versus mild consolation at the left lung base. A chest x-ray post-intubation showed the ET tube above the angely, patchy airspace consolidation left mid and lower lung zones. The patient also underwent CT angiogram of the chest to rule out PE which was a limited study due to severe respiratory and motion artifact. However, no PE is seen through the lobar vessels. There is a consolidation in the left lower lobe as well as right lower lobe and enlarged lymph nodes present in the left axilla. 08/17 No acute events overnight. Sedated with Diprivan and intubated. Afebrile. 08/18: On lightening sedation patient wakes up follows commands. Unable to confirm a cuff leak so no extubation today. Chest x-ray shows bibasilar infiltrates, patient has copious oral and ET tube secretions 08/19: Patient tolerating C-pap wide awake and following commands. Secretions have decreased. Cuff leak, will proceed with weaning trials. Platelet count slightly improved to 61 08/20: Extubated yesterday tolerating well respiratory ravi, no stridor. Blood pressure continues to be elevated I have received hydralazine yesterday, started back on Coreg and minoxidil today. From medications it appears that patient has refractory hypertension Objective Vital Signs Date Time Temp Pulse Resp B/P Pulse Ox O2 Delivery O2 Flow Rate FiO2 08/20/16 06:00 63 08/20/16 04:00 99.1 27 182/89 94 08/19/16 20:55 Nasal Cannula 5.00 08/19/16 05:33 40 Intake and Output 08/19/16 08/19/16 08/20/16 08:00 16:00 00:00 Intake Total 598 ml 400 ml 640 ml Output Total 450 ml 300 ml 1000 ml Balance 148 ml 100 ml -360 ml Result Diagram: 08/19/16 0331 08/18/16 0515 Other Results Microbiology Date/Time Procedure Status Source Growth 08/19/16 02:30 Stool Occult Blood (ELMER) - Final Complete Stool Stool HEMOCCULT NEGATIVE Imaging Last Impressions Chest X-Ray 08/16/16 0819 Signed Impressions: Service Date/Time: Tuesday, August 16, 2016 08:32 - CONCLUSION: Underinflated examination with atelectasis versus mild consolidation at the left lung base. Shaquille Bustos MD CT Angiography 08/16/16 0000 Signed Impressions: Service Date/Time: Tuesday, August 16, 2016 11:06 - CONCLUSION: 1. Evaluation for PE is limited due to severe respiratory motion artifact and less than optimal contrast bolus timing. However, no PE is seen through the lobar vessels. More distal PE cannot be excluded based on this examination. 2. There is consolidation and volume loss in the left lower lobe as well as the right lower lobe. There are trace bilateral pleural effusions. 3. Enlarged lymph nodes are present in the left axilla with edema along the left chest wall. Suggest correlation with clinical history and exam. 4. There is free fluid in the visualized upper abdomen. Shaquille Bustos MD Objective Remarks GENERAL: Patient is 76yo awake alert oriented SKIN: Warm and dry. HEAD: Normocephalic. EYES: No scleral icterus. No injection or drainage. ENT: Oral cavity is moist airway patent NECK: Supple, trachea midline. No JVD or lymphadenopathy. CARDIOVASCULAR: Regular rate and rhythm without murmurs, gallops, or rubs. RESPIRATORY: Breath sounds equal bilaterally. No accessory muscle use. GASTROINTESTINAL: Abdomen soft, non-tender, nondistended. MUSCULOSKELETAL: No cyanosis, or edema. Neuro: Alert awake follows commands no focal deficits Urinary Catheter: Yes Assessment to: Continue A/P Assessment and Plan Assessment: Acute hypoxemic respiratory failure Pneumonia Laryngeal/vocal cord edema Anemia and thrombocytopenia Liver cirrhosis Hypertension History of seizure and hemorrhagic stroke Coronary artery disease Prostate CA Plan Neuro: Monitor neuro status closely. Continue with Keppra 500 mg BID and Lamictal 300 mg BID for underlying history of seizures. Resume fluoxetine Pulm: Extubated yesterday tolerating well no stridor Bronchodilators, continue prednisone 20 mg daily CV: Monitor HR and BP and maintain MAP > 65 mmHg. On hydralazine 25 mg TID. Lactic acid level measured at 0.8. Restart home medications of Coreg and minoxidil. : Monitor renal function, intakes and outputs and electrolyte replacement as needed. GI: Low-sodium diet ID: Continue with abx(Zosyn) and monitor for signs of infection( fever and WBCs) . Given Vancomycin and Zosyn in ED. Follow up on cxs Nasal washing for influenza is negative. Endo: SSI with Accu-Chek q. 6 hours for glycemic control. On Synthroid 150 micrograms p.o. daily. TSH 3.71 Heme: Monitor CBC and coags and continue with ferrous sulfate. Heme following for thrombocytopenia -most likely secondary to cirrhosis and splenomegaly GI prophylaxis with Protonix 40 milligrams daily. DVT prophylaxis with SCDs. Not on chemical anticoagulation given thrombocytopenia and history of hemorrhagic stroke. Level 3 [facility] consulted to assume care 08/21/16 (Dr. Bailey) Rachel Corbin MD Aug 20, 2016 09:26
[2016-08-20] MEDS: CARVEDILOL 12.5 MG TAB PO SCH ×2 (09:45→20:35)
[2016-08-20] MEDS: MINOXIDIL 10 MG TAB PO SCH ×2 (10:00→20:35)
[2016-08-20] MEDS ORDERED: FUROSEMIDE 40 MG/4 ML VIAL IV PUSH STA (11:47)
[2016-08-20 12:30] LABS: AUTOMATED NEUTROPHIL # 7.5 TH/MM3 (1.8-7.7); BASOPHIL % 0.1 % (0.0-2.0); EOSINOPHIL % 0.3 % (0.0-4.0); HEMATOCRIT 32.3 % (39.0-51.0); LYMPH % 7.6 % (9.0-44.0); LYMPHOCYTE # 0.7 TH/MM3 (1.0-4.8); MEAN CELL VOLUME 99.9 FL (80.0-100.0); MEAN CORPUSCULAR HEMOGLOBIN 34.8 PG (27.0-34.0); MEAN CORPUSCULAR HGB CONC 34.8 % (32.0-36.0); MONO % 9.5 % (0.0-8.0); NEUT % 82.5 % (16.0-70.0); PLATELET COUNT 67 TH/MM3 (150-450); RED BLOOD COUNT 3.23 MIL/MM3 (4.50-5.90); RED CELL DISTRIBUTION WIDTH 13.5 % (11.6-17.2); WHITE BLOOD COUNT 9.1 TH/MM3 (4.0-11.0)
[2016-08-20 12:36] LABS: HEMO FLAGS AUTO DIFF
--- NOTE | 2016-08-20 12:42 | RADRPT ---
EXAM DATE/TIME: 08/20/2016 12:17 [place] COMPARISON: CHEST SINGLE AP, August 18, 2016, 4:39. INDICATIONS : Cough and short of breath. MEDICAL HISTORY : Congestive hearrt failure. Hypertension. Diabetes mellitus type 2. SURGICAL HISTORY : None. ENCOUNTER: Subsequent ACUITY: 4 - 6 days PAIN SCORE: 2/10 LOCATION: Bilateral chest FINDINGS: Cardiomegaly persists as well as bibasilar opacities. The ET tube and Nasogastric tube have been olimpia robert. CONCLUSION: Stable chest other than removal of the ET tube and nasogastric tube. Trey Shine MD on August 20, 2016 at 12:39 Board Certified Radiologist. This report was verified electronically.
[2016-08-20 13:22] LABS: BANDS 2 % (0-6); NEUTROPHIL # MANUAL DIFF 7.7 TH/MM3 (1.8-7.7); POLYS (SEG NEUTROPHILS) 83 % (16-70); WBC DIFF SAMPLE 100
[2016-08-20 13:23] LABS: ACANTHOCYTES OCC (NORMAL); HELMET CELLS OCC (NORMAL); PLATELET ESTIMATE SMEAR LOW (NORMAL); PLATELET MORPHOLOGY NORMAL (NORMAL); SCAN/DIFF FINAL DIFF MANUAL
[2016-08-20] MEDS: FUROSEMIDE 80 MG TAB PO SCH (14:00)
--- NOTE | 2016-08-20 16:20 | PD.ONC.PN ---
Subjective Subjective Remarks Afebrile overnight. Patient sitting up in bed getting ready to take a breathing treatment. He is complaining of congestion and mild shortness of breath. He is in good spirits. Objective Data Date Time Temp Pulse Resp B/P Pulse Ox O2 Delivery O2 Flow Rate FiO2 08/20/16 14:00 63 08/20/16 14:00 98.0 62 16 155/71 98 08/20/16 12:00 98.4 79 16 178/88 98 08/20/16 12:00 58 08/20/16 10:40 93 Nasal Cannula 7.00 08/20/16 08:00 98.0 74 16 196/99 99 08/20/16 06:00 63 08/20/16 04:00 58 08/20/16 04:00 99.1 58 27 182/89 94 08/20/16 02:00 61 08/20/16 00:00 58 08/20/16 00:00 98.2 58 23 175/107 94 08/19/16 22:00 61 08/19/16 20:55 94 Nasal Cannula 5.00 08/19/16 20:00 57 08/19/16 20:00 99.1 57 21 173/84 97 08/19/16 18:00 58 08/19/16 16:27 98.0 54 16 158/72 99 08/20/16 08/20/16 08/20/16 07:00 15:00 23:00 Intake Total 560 ml 560 ml Output Total 450 ml 450 ml Balance 110 ml 110 ml Result Diagram: 08/20/16 1149 08/18/16 0515 Laboratory Results Laboratory Tests Test 08/19/16 08/20/16 18:20 11:49 Hepatitis A IgM Antibody NEGATIVE Hepatitis B Surface Antigen NEGATIVE Hepatitis B Core IgM Antibody NEGATIVE Hepatitis C Antibody NEGATIVE White Blood Count 9.1 TH/MM3 Red Blood Count 3.23 MIL/MM3 Hemoglobin 11.3 GM/DL Hematocrit 32.3 % Mean Corpuscular Volume 99.9 FL Mean Corpuscular Hemoglobin 34.8 PG Mean Corpuscular Hemoglobin 34.8 % Concent Red Cell Distribution Width 13.5 % Platelet Count 67 TH/MM3 Mean Platelet Volume 8.6 FL Neutrophils (%) (Auto) 82.5 % Lymphocytes (%) (Auto) 7.6 % Monocytes (%) (Auto) 9.5 % Eosinophils (%) (Auto) 0.3 % Basophils (%) (Auto) 0.1 % Neutrophils # (Auto) 7.5 TH/MM3 Lymphocytes # (Auto) 0.7 TH/MM3 Monocytes # (Auto) 0.9 TH/MM3 Eosinophils # (Auto) 0.0 TH/MM3 Basophils # (Auto) 0.0 TH/MM3 CBC Comment AUTO DIFF Differential Total Cells 100 Counted Neutrophils % (Manual) 83 % Band Neutrophils % 2 % Lymphocytes % 8 % Monocytes % 7 % Neutrophils # (Manual) 7.7 TH/MM3 Differential Comment FINAL DIFF MANUAL Platelet Estimate LOW Platelet Morphology Comment NORMAL Helmet Cells OCC Acanthocytes OCC Culture Results Microbiology Date/Time Procedure Status Source Growth 08/19/16 02:30 Stool Occult Blood (ELMER) - Final Complete Stool Stool HEMOCCULT NEGATIVE Imaging Studies Last 24 hours Impressions Chest X-Ray 08/20/16 0000 Signed Impressions: Service Date/Time: Saturday, August 20, 2016 12:17 - CONCLUSION: Stable chest other than removal of the ET tube and nasogastric tube. Trey Shine MD Administered Medications Medications (Trade) Dose Ordered Sig/Matteo Route PRN Reason Start Time Stop Time Status Last Admin Dose Admin Pantoprazole Sodium (Protonix Inj) 40 mg DAILY IV 08/16/16 13:15 08/20/16 08:53 Chlorhexidine Gluconate 3 pack 3 pack Taper DAILY@04 TOP 08/17/16 04:00 08/13/17 03:59 08/20/16 04:00 Piperacillin Sod/ Tazobactam Sod (Zosyn 4.5 Gm Premix) 100 ml @ 200 mls/hr Q6H IV 08/16/16 14:00 08/20/16 08:53 Ferrous Sulfate (Ferrous Sulfate Liq) 130 mg BIDPC PO 08/16/16 18:00 08/20/16 08:52 Hydralazine HCl (Apresoline) 25 mg TID PO 08/16/16 18:00 08/20/16 08:52 Lamotrigine (LaMICtal) 300 mg BID PO 08/16/16 21:00 08/20/16 08:53 Levetriacetam (Keppra) 500 mg BID PO 08/16/16 21:00 08/20/16 08:53 Levothyroxine Sodium (Synthroid) 150 mcg DAILY PO 08/17/16 09:00 08/20/16 08:53 Vitamin B Complex/ Vit C/Folic Acid (Nephrocaps) 1 cap DAILY PO 08/17/16 09:00 08/20/16 08:53 Insulin Human Regular (NovoLIN R SUPPLEMENTAL SCALE) 1 Q6HR SQ 08/16/16 18:00 08/18/16 13:15 Hydralazine HCl (Apresoline Inj) 10 mg Q6H PRN IV PUSH SYS BP GREATER THAN 160 MMHG 08/16/16 17:00 08/20/16 10:45 Prednisone (Deltasone) 20 mg BID PO 08/19/16 21:00 08/22/16 20:59 08/20/16 08:54 Minoxidil (Loniten) 20 mg Q12HR PO 08/20/16 10:00 08/20/16 10:00 Objective Remarks GENERAL: Chronically ill-appearing older male lying in bed in no distress SKIN: Warm and dry. HEAD: Normocephalic. EYES: No injection or drainage. NECK: Supple, trachea midline. No JVD or lymphadenopathy. CARDIOVASCULAR:+S1/S2. No murmur appreciated. RESPIRATORY: Lungs with coarse rhonchi throughout. GASTROINTESTINAL: Abdomen soft, non-tender, nondistended. EXTREMITIES: No cyanosis, or edema. NEUROLOGICAL: No obvious focal deficit. Awake, alert, and oriented x3. Assessment/Plan Problem List: (1) Thrombocytopenia Status: Acute Plan: -- US liver shows cirrhosis; likely a culprit of thrombocytopenia. --acute thrombocytopenia due to acute illness, DIC and consumption. --does not appear to be TTP --peripheral smear pending. --LDH/Haptoglobin -WNL --DIC panel--showed low fibrinogen. coags pending for today. --RADHA negative --CTA--> no evidence of PE. + consolidation and volume loss in the left lower lung as well as the right lower lung. +trace bilateral pleural effusions. + enlarged large lymph nodes in the left axilla. --U/S abdomen shows hepatosplenomegaly--likely causing a low platelet count at baseline. (2) Normocytic anemia Status: Acute Plan: --B12 WNL --stool hemoccult --iron studies more consistent with ACD (3) Pneumonia Status: Acute Plan: --on abx. --BC no growth. Assessment 76y/[place] [facility] [place]ematology consulted for thrombocytopenia. h/o Hemorrhagic stroke, hemiparesis. Hypertension. Hypothyroidism. Prostate cancer. Coronary artery disease. Seizures. Chronic thrombocytopenia and anemia. Plan 1. Cirrhosis and splenomegaly likely culprits causing thrombocytopenia 2. Counts improving 3. Monitor CBC 4. Supportive care. Attending Statement The exam, history, and the medical decision-making described in the above note were completed with the assistance of the mid-level provider. I reviewed and agree with the findings presented. I attest that I had a [id number] encounter with the patient on the same day, and personally performed and documented my assessment and findings in the medical record. Mini Archibald Aug 20, 2016 16:20 Rahul Londono MD Aug 20, 2016 23:41
[2016-08-20] MEDS: POTASSIUM CHLORIDE 10 MEQ CONTROLLED RELEASE TAB PO SCH (18:00)
[2016-08-20] MEDS: FLUoxetine HCL 10 MG CAP PO SCH (20:35)
[2016-08-20] MEDS ORDERED: MINOXIDIL 10 MG TAB PO SCH ×2 (21:00)
[2016-08-20] MEDS ORDERED: POTASSIUM CHLOR 40 MEQ PREMIX 100 ML IV ONE (21:30)
[2016-08-20] MEDS ORDERED: POTASSIUM CHLORIDE 20 MEQ CONTROLLED RELEASE TAB PO ONE ×2 (21:30→23:45)
[2016-08-21] VITALS (13 sets, daily range): BP systolic 98–126; BP diastolic 48–60; PULSE 53–64; RESP 2–27; TEMP 97.8–98.7; O2SAT 90–100
[2016-08-21] MEDS: PIPERACIL-TAZO 4.5 GM PREMIX 100 ML IV SCH ×4 (01:03→20:33)
[2016-08-21] MEDS: CHLORHEXIDINE GLUCONATE 2 % 1 PACK (2 CLOTHS) TOP SCH (04:00)
[2016-08-21] MEDS: RESP: ALBUTEROL 2.5 MG/IPRATROPIUM 0.5 MG NEB (SCH) INH ×4 (04:00→20:55)
[2016-08-21] MEDS: INSULIN NovoLIN REGULAR SUPPLEMENTAL SCALE SQ SCH ×4 (05:32→18:00)
--- NOTE | 2016-08-21 08:14 | HHI.PR ---
Subjective Remarks in no acute distress although with sob- and easily desaturates with exertion. no fever. refused the blood tests earlier. d/w the RN. Objective Vitals Vital Signs Date Time Temp Pulse Resp B/P Pulse Ox O2 Delivery O2 Flow Rate FiO2 08/21/16 06:00 55 08/21/16 04:00 56 08/21/16 04:00 98.0 56 23 112/55 90 08/21/16 02:00 56 08/21/16 00:00 97.8 53 27 106/53 93 08/21/16 00:00 53 08/20/16 22:00 64 08/20/16 21:34 100 Nasal Cannula 5.00 08/20/16 20:00 65 08/20/16 20:00 98.4 65 28 154/70 100 08/20/16 18:00 63 08/20/16 16:00 98.4 79 16 178/88 98 08/20/16 16:00 58 08/20/16 14:00 63 08/20/16 14:00 98.0 62 16 155/71 98 08/20/16 12:00 98.4 79 16 178/88 98 08/20/16 12:00 58 08/20/16 10:40 93 Nasal Cannula 7.00 I/O 08/20/16 08/20/16 08/20/16 08/21/16 08/21/16 08/21/16 07:00 15:00 23:00 07:00 15:00 23:00 Intake Total 560 ml 560 ml 216 ml Output Total 450 ml 450 ml 5700 ml 350 ml Balance 110 ml 110 ml -5484 ml -350 ml Intake Oral 300 ml 300 ml 150 ml IV Total 260 ml 260 ml 66 ml Output Urine Total 450 ml 450 ml 5700 ml 350 ml # Bowel Movements 1 1 Result Diagram: 08/20/16 1149 08/20/16 1837 Imaging Last Impressions Chest X-Ray 08/20/16 0000 Signed Impressions: Service Date/Time: Saturday, August 20, 2016 12:17 - CONCLUSION: Stable chest other than removal of the ET tube and nasogastric tube. Trey Shine MD Liver Ultrasound 08/19/16 0000 Signed Impressions: Service Date/Time: Friday, August 19, 2016 08:19 - CONCLUSION: Hepatosplenomegaly with somewhat nodular liver increased echogenicity and ascitic fluid consistent with cirrhosis hepatocellular disease Trey Shine MD CT Angiography 08/16/16 0000 Signed Impressions: Service Date/Time: Tuesday, August 16, 2016 11:06 - CONCLUSION: 1. Evaluation for PE is limited due to severe respiratory motion artifact and less than optimal contrast bolus timing. However, no PE is seen through the lobar vessels. More distal PE cannot be excluded based on this examination. 2. There is consolidation and volume loss in the left lower lobe as well as the right lower lobe. There are trace bilateral pleural effusions. 3. Enlarged lymph nodes are present in the left axilla with edema along the left chest wall. Suggest correlation with clinical history and exam. 4. There is free fluid in the visualized upper abdomen. Shaquille Bustos MD Objective Remarks GENERAL: with some sob however with no apparent distress. CARDIOVASCULAR: Regular rate and irregular rhythm without murmurs, gallops, or rubs. RESPIRATORY: Clear to auscultation. Breath sounds equal bilaterally. No wheezes , rales, or rhonchi. GASTROINTESTINAL: Abdomen soft, non-tender, nondistended. Normal, active bowel sounds MUSCULOSKELETAL: Extremities without clubbing, cyanosis, or edema. NEURO: Alert & Oriented x4 to person, place, time, situation. Procedures endotracheal intubation Medications and IVs Current Medications Vancomycin HCl 1000 mg/Sodium Chloride 250 ml @ 250 mls/hr ONCE STAT IV Last administered on 08/16/16 08:58; Start 08/16/16 at 08:19; Stop 08/16/16 at 09:18 ; Status DC Piperacillin Sod/ Tazobactam Sod (Zosyn 4.5 Gm Premix) 100 ml @ 200 mls/hr ONCE STAT IV Last administered on 08/16/16 08:33; Start 08/16/16 at 08:19; Stop 08/16/16 at 08:48; Status DC Albuterol/ Ipratropium (Duoneb Neb) 1 ampule ONCE ONCE NEB Last administered on 08/16/16 08:37; Start 08/16/16 at 08:30; Stop 08/16/16 at 08:31; Status DC Etomidate (Amidate Inj) 20 mg ONCE ONCE IV PUSH Last administered on 09:50; Start 08/16/16 at 09:45; Stop 08/16/16 at 09:46; Status DC Succinylcholine Chloride 100 mg 100 mg ONCE ONCE IVP Last administered on 08/16 09:50; Start 08/16/16 at 09:45; Stop 08/16/16 at 09:46; Status DC Propofol (Diprivan 1000 Mg/100ml Inj) 100 ml @ 0 mls/hr TITRATE IV Last administered on 08/18/16 11:21; Start 08/16/16 at 09:45; Stop 08/19/16 at 13:37 ; Status DC Iohexol (Omnipaque 350 Inj) 75 ml STK-MED ONCE IV Last administered on 11:12; Start 08/16/16 at 11:12; Stop 08/16/16 at 11:13; Status DC Pantoprazole Sodium (Protonix Inj) 40 mg DAILY IV Last administered on 08:53; Start 08/16/16 at 13:15 Albuterol/ Ipratropium (Duoneb Neb) 1 ampule Q6HR NEB INH Last administered on 08/20/16 21:34; Start 08/16/16 at 16:00 Miscellaneous Information 1 [id number] XX ; Start 08/16/16 at 13:15 Chlorhexidine Gluconate (Chlorhexidine 2% Cloth) 3 pack Taper DAILY@04 TOP Last administered on 08/20/16 04:00; Start 08/17/16 at 04:00; Stop 08/13/17 at 03:59 Chlorhexidine Gluconate (Chlorhexidine 2% Cloth) 3 pack UNSCH PRN TOP HYGIENIC CARE; Start 08/16/16 at 13:15 Methylprednisolone Sodium Succinate (SoluMEDROL INJ) 60 mg Q8HR IV PUSH Last administered on 08/19/16 05:23; Start 08/16/16 at 14:00; Stop 08/19/16 at 13:37 ; Status DC Dextrose (D50w (Vial) Inj) 25 ml UNSCH PRN IV PUSH HYPOGLYCEMIA-SEE COMMENTS; Start 08/16/16 at 13:15 Glucagon (Glucagon Inj) 1 mg UNSCH PRN OTHER HYPOGLYCEMIA-SEE COMMENTS; Start 08/16/16 at 13:15 Insulin Human Regular 1 1 Q6H SQ ; Start 08/16/16 at 13:15; Stop 08/16/16 at 13: 18; Status DC Piperacillin Sod/ Tazobactam Sod (Zosyn 4.5 Gm Premix) 100 ml @ 200 mls/hr Q6H IV Last administered on 08/20/16 20:36; Start 08/16/16 at 14:00 Ferrous Sulfate (Ferrous Sulfate Liq) 130 mg BIDPC PO Last administered on 08/20 18:00; Start 08/16/16 at 18:00 Hydralazine HCl (Apresoline) 25 mg TID PO Last administered on 08/20/16 18:00 ; Start 08/16/16 at 18:00 Lamotrigine (LaMICtal) 300 mg BID PO Last administered on 08/20/16 20:34; Start 08/16/16 at 21:00 Levetriacetam (Keppra) 500 mg BID PO Last administered on 08/20/16 20:34; Start 08/16/16 at 21:00 Levothyroxine Sodium (Synthroid) 150 mcg DAILY PO Last administered on 08:53; Start 08/17/16 at 09:00 Vitamin B Complex/ Vit C/Folic Acid (Nephrocaps) 1 cap DAILY PO Last administered on 08/20/16 08:53; Start 08/17/16 at 09:00 Insulin Human Regular (NovoLIN R SUPPLEMENTAL SCALE) 1 Q6HR SQ Last administered on 08/18/16 13:15; Start 08/16/16 at 18:00 Hydralazine HCl (Apresoline Inj) 10 mg Q6H PRN IV PUSH SYS BP GREATER THAN 160 MMHG Last administered on 08/20/16 10:45; Start 08/16/16 at 17:00 Influenza Virus Vaccine 0.5 ml 0.5 ml ONCE ONCE IM ; Start 08/17/16 at 10:00; Stop 08/17/16 at 10:01; Status DC Fentanyl Citrate 250 ml @ 0 mls/hr TITRATE IV Last administered on 08/19/16 05 :50; Start 08/18/16 at 11:15; Stop 08/19/16 at 13:37; Status DC Fentanyl Citrate (fentaNYL DRIP) 250 ml @ 0 mls/hr TITRATE IV ; Start 08/18/16 at 11:30; Stop 08/19/16 at 13:37; Status DC Prednisone (Deltasone) 20 mg BID PO Last administered on 08/20/16 20:34; Start 08/19/16 at 21:00; Stop 08/22/16 at 20:59 Aspirin (Ecotrin Ec) 81 mg DAILY PO ; Start 08/21/16 at 09:00 Carvedilol (Coreg) 50 mg BID PO Last administered on 08/20/16 20:35; Start at 09:45 Fluoxetine HCl (PROzac) 10 mg HS PO Last administered on 08/20/16 20:35; Start 08/20/16 at 21:00 Minoxidil (Loniten) 20 mg Q12HR PO Last administered on 08/20/16 20:35; Start 08/20/16 at 10:00 Minoxidil (Loniten) 30 mg HS PO ; Start 08/20/16 at 21:00; Status Cancel Minoxidil (Loniten) 30 mg HS PO ; Start 08/20/16 at 21:00; Status Hold Furosemide (Lasix Inj) 40 mg ONCE STAT IV PUSH Last administered on 08/20/16 11:47; Start 08/20/16 at 11:47; Stop 08/20/16 at 11:51; Status DC Furosemide (Lasix) 80 mg DAILY PO Last administered on 08/20/16 14:00; Start 08/20/16 at 14:00 Potassium Chloride (KCl) 30 meq DAILY PO Last administered on 08/20/16 18:00; Start 08/20/16 at 18:00 Potassium Chloride 40 meq 40 meq NOW ONCE PO Last administered on 08/20/16 22 :12; Start 08/20/16 at 21:30; Stop 08/20/16 at 21:32; Status DC Potassium Chloride (KCl 40 Meq Premix Inj) 100 ml @ 25 mls/hr ONCE ONCE IV Last administered on 08/20/16 22:13; Start 08/20/16 at 21:30; Stop 08/21/16 at 01:29; Status DC Potassium Chloride (KCl) 40 meq NOW ONCE PO Last administered on 08/21/16 00: 32; Start 08/20/16 at 23:45; Stop 08/20/16 at 23:46; Status DC A/P Assessment and Plan A/P Acute hypoxemic respiratory failure with Pneumonia and Laryngeal/vocal cord edema continue antibiotics, steroid and neb treatment- will consult pulmonary Anemia and thrombocytopenia likely due to cirrhosis- will monitor- hematology following Liver cirrhosis; continue diuretics- GI consulted. Hypertension; continue coreg, minoxidil- will monitor and adjust the regimen as needed. History of seizure and hemorrhagic stroke; continue keppra Coronary artery disease- continue aspirin and BB Prostate CA- f/u as outpatient history of intracranial hemorrhage- continue PT DVT prophylaxis with SCD's will keep in ICU today. William Bautista MD Aug 21, 2016 08:14
[2016-08-21] MEDS: FERROUS SULFATE 300 MG /5ML UDC PO SCH (09:00)
[2016-08-21] MEDS: FUROSEMIDE 80 MG TAB PO SCH (09:00)
[2016-08-21] MEDS: lamoTRIgine 100 MG TAB PO SCH ×2 (09:25→20:32)
[2016-08-21] MEDS: CARVEDILOL 12.5 MG TAB PO SCH ×2 (09:25→20:32)
[2016-08-21] MEDS: MINOXIDIL 10 MG TAB PO SCH ×2 (09:26→20:32)
[2016-08-21] MEDS: levETIRAcetam 250 MG TAB PO SCH ×2 (09:26→20:32)
[2016-08-21] MEDS: PANTOPRAZOLE SODIUM 40 MG VIAL IV SCH (09:26)
[2016-08-21] MEDS: hydrALAZINE HCL 25 MG TAB PO SCH ×3 (09:26→19:05)
[2016-08-21] MEDS: VITAMIN B CMPLX/VITC/FOLIC AC CAP PO SCH (09:27)
[2016-08-21] MEDS: POTASSIUM CHLORIDE 10 MEQ CONTROLLED RELEASE TAB PO SCH (09:27)
[2016-08-21] MEDS: predniSONE 20 MG TAB PO SCH (09:27)
[2016-08-21] MEDS: LEVOTHYROXINE SODIUM 150 MCG TAB PO SCH (09:27)
[2016-08-21] MEDS: ASPIRIN EC 81 MG TABEC PO SCH (11:30)
--- NOTE | 2016-08-21 12:04 | PD.ONC.PN ---
Subjective Subjective Remarks feels okay some dyspnea no bleeding Objective Data Date Time Temp Pulse Resp B/P Pulse Ox O2 Delivery O2 Flow Rate FiO2 08/21/16 08:58 95 Nasal Cannula 5.00 08/21/16 06:00 55 08/21/16 04:00 56 08/21/16 04:00 98.0 56 23 112/55 90 08/21/16 02:00 56 08/21/16 00:00 97.8 53 27 106/53 93 08/21/16 00:00 53 08/20/16 22:00 64 08/20/16 21:34 100 Nasal Cannula 5.00 08/20/16 20:00 65 08/20/16 20:00 98.4 65 28 154/70 100 08/20/16 18:00 63 08/20/16 16:00 98.4 79 16 178/88 98 08/20/16 16:00 58 08/20/16 14:00 63 08/20/16 14:00 98.0 62 16 155/71 98 08/21/16 08/21/16 08/21/16 07:00 15:00 23:00 Output Total 350 ml Balance -350 ml Result Diagram: 08/20/16 1149 08/20/16 1837 Laboratory Results Laboratory Tests Test 08/20/16 18:37 Potassium Level 2.9 MEQ/L Culture Results Microbiology Date/Time Procedure Status Source Growth 08/19/16 02:30 Stool Occult Blood ([facility]MER) - Final Complete Stool Stool HEMOCCULT NEGATIVE Administered Medications Medications (Trade) Dose Ordered Sig/Matteo Route PRN Reason Start Time Stop Time Status Last Admin Dose Admin Chlorhexidine Gluconate 3 pack 3 pack Taper DAILY@04 TOP 08/17/16 04:00 08/13/17 03:59 08/20/16 04:00 Piperacillin Sod/ Tazobactam Sod (Zosyn 4.5 Gm Premix) 100 ml @ 200 mls/hr Q6H IV 08/16/16 14:00 08/21/16 09:26 Hydralazine HCl (Apresoline) 25 mg TID PO 08/16/16 18:00 08/21/16 09:26 Lamotrigine (LaMICtal) 300 mg BID PO 08/16/16 21:00 08/21/16 09:25 Levetriacetam (Keppra) 500 mg BID PO 08/16/16 21:00 08/21/16 09:26 Levothyroxine Sodium (Synthroid) 150 mcg DAILY PO 08/17/16 09:00 08/21/16 09:27 Vitamin B Complex/ Vit C/Folic Acid (Nephrocaps) 1 cap DAILY PO 08/17/16 09:00 08/21/16 09:27 Insulin Human Regular (NovoLIN R SUPPLEMENTAL SCALE) 1 Q6HR SQ 08/16/16 18:00 08/18/16 13:15 Hydralazine HCl (Apresoline Inj) 10 mg Q6H PRN IV PUSH SYS BP GREATER THAN 160 MMHG 08/16/16 17:00 08/20/16 10:45 Prednisone (Deltasone) 20 mg BID PO 08/19/16 21:00 08/22/16 20:59 08/21/16 09:27 Aspirin (Ecotrin Ec) 81 mg DAILY PO 08/21/16 09:00 08/21/16 11:30 Carvedilol (Coreg) 50 mg BID PO 08/20/16 09:45 08/21/16 09:25 Fluoxetine HCl (PROzac) 10 mg HS PO 08/20/16 21:00 08/20/16 20:35 Minoxidil (Loniten) 20 mg Q12HR PO 08/20/16 10:00 08/21/16 09:26 Furosemide (Lasix) 80 mg DAILY PO 08/20/16 14:00 08/20/16 14:00 Potassium Chloride (KCl) 30 meq DAILY PO 08/20/16 18:00 08/21/16 09:27 Objective Remarks GENERAL: nad SKIN: Warm and dry. NECK: Supple, trachea midline. No JVD or lymphadenopathy. LYMPHATIC: No adenopathy. CARDIOVASCULAR: Regular rate and rhythm without murmurs. RESPIRATORY: Breath sounds equal bilaterally. No accessory muscle use. GASTROINTESTINAL: Abdomen soft, non-tender, nondistended. EXTREMITIES: No cyanosis, or edema. Assessment/Plan Problem List: (1) Thrombocytopenia Status: Acute Plan: -- US liver shows cirrhosis; likely a culprit of thrombocytopenia. --acute thrombocytopenia due to acute illness, DIC and consumption. --does not appear to be TTP --peripheral smear pending. --LDH/Haptoglobin -WNL --DIC panel--showed low fibrinogen. coags pending for today. --RADHA negative --CTA--> no evidence of PE. + consolidation and volume loss in the left lower lung as well as the right lower lung. +trace bilateral pleural effusions. + enlarged large lymph nodes in the left axilla. --U/S abdomen shows hepatosplenomegaly--likely causing a low platelet count at baseline. (2) Normocytic anemia Status: Acute Plan: --B12 WNL --stool hemoccult --iron studies more consistent with ACD (3) Pneumonia Status: Acute Plan: --on abx. --BC no growth. Assessment 76y/o critically ill in [facility]. Hematology consulted for thrombocytopenia. h/o Hemorrhagic stroke, hemiparesis. Hypertension. Hypothyroidism. Prostate cancer. Coronary artery disease. Seizures. Chronic thrombocytopenia and anemia. Plan 1. Cirrhosis and splenomegaly likely culprits causing thrombocytopenia--auto- immune w/u ongoinh 2. PLT count up 4. Supportive care. F/U in Hematology clinic in 3-4 weeks. Rahul Londoon MD Aug 21, 2016 12:04
[2016-08-21 19:41] LABS: AUTOMATED NEUTROPHIL # 8.8 TH/MM3 (1.8-7.7); EOSINOPHIL % 0.2 % (0.0-4.0); HEMATOCRIT 30.6 % (39.0-51.0); LYMPH % 3.9 % (9.0-44.0); LYMPHOCYTE # 0.4 TH/MM3 (1.0-4.8); MEAN CELL VOLUME 99.3 FL (80.0-100.0); MEAN CORPUSCULAR HEMOGLOBIN 34.9 PG (27.0-34.0); MEAN CORPUSCULAR HGB CONC 35.2 % (32.0-36.0); MONO % 3.8 % (0.0-8.0); NEUT % 92.1 % (16.0-70.0); PLATELET COUNT 78 TH/MM3 (150-450); RED BLOOD COUNT 3.08 MIL/MM3 (4.50-5.90); RED CELL DISTRIBUTION WIDTH 13.3 % (11.6-17.2); WHITE BLOOD COUNT 9.6 TH/MM3 (4.0-11.0)
[2016-08-21 19:44] LABS: HEMO FLAGS DIFF FINAL
[2016-08-21 20:06] LABS: ANION GAP 4 MEQ/L (5-15); AST (GOT) 25 U/L (15-37); BICARBONATE 32.5 MEQ/L (21.0-32.0); BLOOD UREA NITROGEN 21 MG/DL (7-18); CHLORIDE 104 MEQ/L (98-107); GLOMERULAR FILTRATION RATE 91 ML/MIN (>89); POTASSIUM 4.5 MEQ/L (3.5-5.1); SODIUM (NA) 140 MEQ/L (136-145)
[2016-08-21 20:07] LABS: ALKALINE PHOSPHATASE 68 U/L (45-117); ALT (GPT) 24 U/L (12-78); TOTAL BILIRUBIN ADULT 0.9 MG/DL (0.2-1.0)
[2016-08-21] MEDS: FLUoxetine HCL 10 MG CAP PO SCH (20:32)
[2016-08-22] VITALS (14 sets, daily range): BP systolic 94–128; BP diastolic 49–60; PULSE 55–66; RESP 20–28; TEMP 98–98.8; O2SAT 86–99
[2016-08-22] MEDS: PIPERACIL-TAZO 4.5 GM PREMIX 100 ML IV SCH ×4 (00:57→20:59)
[2016-08-22] MEDS: CHLORHEXIDINE GLUCONATE 2 % 1 PACK (2 CLOTHS) TOP SCH (00:58)
[2016-08-22] MEDS: INSULIN NovoLIN REGULAR SUPPLEMENTAL SCALE SQ SCH ×4 (05:29→18:00)
--- NOTE | 2016-08-22 07:31 | MB ---
cc: Abraham PERSON DATE OF CONSULTATION 08/21/2016 HISTORY Mr. Valles is a 76-year-old white male who has a left hemiplegia and is basically wheelchair confined cared for by his at home after a stroke in 2008 with hemorrhage. He had a prior history of coronary disease. No significant prior pulmonary history. Nonsmoker. No history of COPD or emphysema. He presented with increasing cough and congestion with low grade fever for about a week and chest x-ray/CT revealed bilateral lower lobe infiltrates. Cultures were negative. White count was normal, but the patient was in significant distress, ended up being intubated and temporarily ventilated and was treated for pneumonia. He was extubated and I am now seeing him awake and alert on nasal cannula in intensive care. The patient states that presently he is feeling much better. He was very "sick" prior to admission. Although he does have a history of gastroesophageal reflux disease, he has not had any recent symptoms and his confirms that he has not had difficulty choking or swallowing food or having a obvious episodes of aspiration. PAST MEDICAL HISTORY 1. Hypertension 2. Hypothyroidism 3. Prostate cancer 4. Coronary artery disease 5. History of seizures after his stroke. 6. Prior cholecystectomy 7. Craniotomy for the hemorrhagic stroke 8. Previous hernia repairs 9. Partial colectomy for diverticulitis ALLERGIES None known. SOCIAL HISTORY living with his . She is her his primary primary health care nurse, drinks occasional alcohol. No smoking. MEDICATIONS Reviewed in the EMR. REVIEW OF SYSTEMS Currently denies pain, minimal cough, not producing any sputum. PHYSICAL EXAMINATION A large white male lying comfortably in bed 98 degrees, 100/50, pulse is 60, respirations are 18, O2 sat on 5 liters 95%. HEAD, EYES, EARS, NOSE, AND THROAT: Sclerae anicteric. Mucous membranes are moist. NECK: The neck veins are flat. LUNGS: Congestion in both lower lobes, but no wheezing. HEART: Regular rhythm. No harsh murmur. ABDOMEN: Obese, but soft, EXTREMITIES: 1+ ankle edema both legs. SCD's in place. Chest x-ray yesterday stable basilar infiltrates. Liver ultrasound reveals cirrhosis with some ascitic fluid. Hepatitis antigens were all negative. INR is normal. Nasal screen is negative for MRSA. Albumin is 3.1, creatinine 0.9. DISCUSSION Mr. Valles presented with basilar infiltrates, probable pneumonia, community acquired and he has done well. No significant prior pulmonary history, but he does have a prior cardiac history. There may be an element of heart failure. He is relatively immobile due to a previous stroke, but we will try to get him mobilized to help clear the congestion and basilar pneumonia. Really no clear clinical history to suggest aspiration. We will continue his antibiotics, decrease his aerosolized bronchodilators, reduce his prednisone dose, taper that, and increase mobilization. Further diagnostic and/or therapeutic intervention will depend on his ongoing clinical course and response to therapy. R. MD RADHA Lazar/MIHAI /6:19 PM /7:24 AM
[2016-08-22] MEDS: RESP: ALBUTEROL 2.5 MG/IPRATROPIUM 0.5 MG NEB (SCH) INH ×3 (08:00→20:45)
[2016-08-22] MEDS: LEVOTHYROXINE SODIUM 150 MCG TAB PO SCH (08:31)
[2016-08-22] MEDS: lamoTRIgine 100 MG TAB PO SCH ×2 (08:31→20:59)
[2016-08-22] MEDS: CARVEDILOL 12.5 MG TAB PO SCH ×2 (08:31→20:59)
[2016-08-22] MEDS: VITAMIN B CMPLX/VITC/FOLIC AC CAP PO SCH (08:31)
[2016-08-22] MEDS: POTASSIUM CHLORIDE 10 MEQ CONTROLLED RELEASE TAB PO SCH (08:31)
[2016-08-22] MEDS: predniSONE 20 MG TAB PO SCH (08:32)
[2016-08-22] MEDS: MINOXIDIL 10 MG TAB PO SCH ×2 (08:32→20:59)
[2016-08-22] MEDS: FUROSEMIDE 80 MG TAB PO SCH (08:32)
[2016-08-22] MEDS: ASPIRIN EC 81 MG TABEC PO SCH (08:32)
[2016-08-22] MEDS: levETIRAcetam 250 MG TAB PO SCH ×2 (08:32→20:59)
[2016-08-22] MEDS: hydrALAZINE HCL 25 MG TAB PO SCH ×3 (08:33→18:00)
[2016-08-22] MEDS: FERROUS SULFATE 325 MG (65 MG ELEMENTAL IRON) TAB PO SCH (08:33)
[2016-08-22] MEDS: PANTOPRAZOLE SOD 40 MG DELAYED RELEASE TAB PO SCH (08:33)
--- NOTE | 2016-08-22 10:25 | HHI.PR ---
Subjective Remarks doing better today. no sob or fever. denies pain. d/w the RN and no acute issues over night. Objective Vitals Vital Signs Date Time Temp Pulse Resp B/P Pulse Ox O2 Delivery O2 Flow Rate FiO2 08/22/16 06:00 55 08/22/16 04:00 55 08/22/16 04:00 98.8 55 20 101/53 95 08/22/16 02:00 55 08/22/16 00:00 98.0 56 28 94/49 96 08/22/16 00:00 56 08/21/16 22:00 61 08/21/16 20:58 97 Nasal Cannula 5.00 08/21/16 20:00 64 08/21/16 20:00 98.7 64 26 107/53 97 08/21/16 18:00 59 08/21/16 16:00 60 08/21/16 16:00 98.2 60 20 126/60 100 08/21/16 14:00 58 08/21/16 12:00 98.5 58 20 98/48 08/21/16 12:00 58 I/O 08/21/16 08/21/16 08/21/16 08/22/16 08/22/16 08/22/16 07:00 15:00 23:00 07:00 15:00 23:00 Intake Total 720 ml 146 ml 143 ml Output Total 350 ml 500 ml 300 ml 275 ml Balance -350 ml 220 ml -154 ml -132 ml Intake Oral 720 ml IV Total 146 ml 143 ml Output Urine Total 350 ml 500 ml 300 ml 275 ml # Bowel Movements 1 Result Diagram: 08/21/16 1844 08/21/16 1844 Imaging Last Impressions Chest X-Ray 08/20/16 0000 Signed Impressions: Service Date/Time: Saturday, August 20, 2016 12:17 - CONCLUSION: Stable chest other than removal of the ET tube and nasogastric tube. Trey Shine MD Liver Ultrasound 08/19/16 0000 Signed Impressions: Service Date/Time: Friday, August 19, 2016 08:19 - CONCLUSION: Hepatosplenomegaly with somewhat nodular liver increased echogenicity and ascitic fluid consistent with cirrhosis hepatocellular disease Trey Shine MD CT Angiography 08/16/16 0000 Signed Impressions: Service Date/Time: Tuesday, August 16, 2016 11:06 - CONCLUSION: 1. Evaluation for PE is limited due to severe respiratory motion artifact and less than optimal contrast bolus timing. However, no PE is seen through the lobar vessels. More distal PE cannot be excluded based on this examination. 2. There is consolidation and volume loss in the left lower lobe as well as the right lower lobe. There are trace bilateral pleural effusions. 3. Enlarged lymph nodes are present in the left axilla with edema along the left chest wall. Suggest correlation with clinical history and exam. 4. There is free fluid in the visualized upper abdomen. Shaquille Bustos MD Objective Remarks GENERAL:looks and feels better today CARDIOVASCULAR: Regular rate and irregular rhythm without murmurs, gallops, or rubs. RESPIRATORY: Clear to auscultation. Breath sounds equal bilaterally. No wheezes , rales, or rhonchi. GASTROINTESTINAL: Abdomen soft, non-tender, nondistended. Normal, active bowel sounds MUSCULOSKELETAL: Extremities without clubbing, cyanosis, or edema. NEURO: Alert & Oriented x4 to person, place, time, situation. Procedures endotracheal intubation Medications and IVs Current Medications Vancomycin HCl 1000 mg/Sodium Chloride 250 ml @ 250 mls/hr ONCE STAT IV Last administered on 08/16/16 08:58; Start 08/16/16 at 08:19; Stop 08/16/16 at 09:18 ; Status DC Piperacillin Sod/ Tazobactam Sod (Zosyn 4.5 Gm Premix) 100 ml @ 200 mls/hr ONCE STAT IV Last administered on 08/16/16 08:33; Start 08/16/16 at 08:19; Stop 08/16/16 at 08:48; Status DC Albuterol/ Ipratropium (Duoneb Neb) 1 ampule ONCE ONCE NEB Last administered on 08/16/16 08:37; Start 08/16/16 at 08:30; Stop 08/16/16 at 08:31; Status DC Etomidate (Amidate Inj) 20 mg ONCE ONCE IV PUSH Last administered on 09:50; Start 08/16/16 at 09:45; Stop 08/16/16 at 09:46; Status DC Succinylcholine Chloride 100 mg 100 mg ONCE ONCE IVP Last administered on 08/16 09:50; Start 08/16/16 at 09:45; Stop 08/16/16 at 09:46; Status DC Propofol (Diprivan 1000 Mg/100ml Inj) 100 ml @ 0 mls/hr TITRATE IV Last administered on 08/18/16 11:21; Start 08/16/16 at 09:45; Stop 08/19/16 at 13:37 ; Status DC Iohexol (Omnipaque 350 Inj) 75 ml STK-MED ONCE IV Last administered on 11:12; Start 08/16/16 at 11:12; Stop 08/16/16 at 11:13; Status DC Pantoprazole Sodium (Protonix Inj) 40 mg DAILY IV Last administered on 09:26; Start 08/16/16 at 13:15; Stop 08/21/16 at 09:48; Status DC Albuterol/ Ipratropium (Duoneb Neb) 1 ampule Q6HR NEB INH Last administered on 08/21/16 16:36; Start 08/16/16 at 16:00; Stop 08/21/16 at 18:24; Status DC Miscellaneous Information 1 Q361D XX ; Start 08/16/16 at 13:15 Chlorhexidine Gluconate (Chlorhexidine 2% Cloth) Taper DAILY@04 TOP Last administered on 08/22/16 00:58; Start 08/17/16 at 04:00; Stop 08/13/17 at 03:59 Chlorhexidine Gluconate (Chlorhexidine 2% Cloth) 3 pack UNSCH PRN TOP HYGIENIC CARE; Start 08/16/16 at 13:15 Methylprednisolone Sodium Succinate (SoluMEDROL INJ) 60 mg Q8HR IV PUSH Last administered on 08/19/16 05:23; Start 08/16/16 at 14:00; Stop 08/19/16 at 13:37 ; Status DC Dextrose (D50w (Vial) Inj) 25 ml UNSCH PRN IV PUSH HYPOGLYCEMIA-SEE COMMENTS; Start 08/16/16 at 13:15 Glucagon (Glucagon Inj) 1 mg UNSCH PRN OTHER HYPOGLYCEMIA-SEE COMMENTS; Start 08/16/16 at 13:15 Insulin Human Regular 1 1 Q6H SQ ; Start 08/16/16 at 13:15; Stop 08/16/16 at 13: 18; Status DC Piperacillin Sod/ Tazobactam Sod (Zosyn 4.5 Gm Premix) 100 ml @ 200 mls/hr Q6H IV Last administered on 08/22/16 08:33; Start 08/16/16 at 14:00 Ferrous Sulfate (Ferrous Sulfate Liq) 130 mg BIDPC PO Last administered on 08/20 18:00; Start 08/16/16 at 18:00; Stop 08/21/16 at 09:48; Status DC Hydralazine HCl (Apresoline) 25 mg TID PO Last administered on 08/22/16 08:33 ; Start 08/16/16 at 18:00 Lamotrigine (LaMICtal) 300 mg BID PO Last administered on 08/22/16 08:31; Start 08/16/16 at 21:00 Levetriacetam (Keppra) 500 mg BID PO Last administered on 08/22/16 08:32; Start 08/16/16 at 21:00 Levothyroxine Sodium (Synthroid) 150 mcg DAILY PO Last administered on 08:31; Start 08/17/16 at 09:00 Vitamin B Complex/ Vit C/Folic Acid (Nephrocaps) 1 cap DAILY PO Last administered on 08/22/16 08:31; Start 08/17/16 at 09:00 Insulin Human Regular (NovoLIN R SUPPLEMENTAL SCALE) 1 Q6HR SQ Last administered on 08/18/16 13:15; Start 08/16/16 at 18:00 Hydralazine HCl (Apresoline Inj) 10 mg Q6H PRN IV PUSH SYS BP GREATER THAN 160 MMHG Last administered on 08/20/16 10:45; Start 08/16/16 at 17:00 Influenza Virus Vaccine 0.5 ml 0.5 ml ONCE ONCE IM ; Start 08/17/16 at 10:00; Stop 08/17/16 at 10:01; Status DC Fentanyl Citrate 250 ml @ 0 mls/hr TITRATE IV Last administered on 08/19/16 05 :50; Start 08/18/16 at 11:15; Stop 08/19/16 at 13:37; Status DC Fentanyl Citrate (fentaNYL DRIP) 250 ml @ 0 mls/hr TITRATE IV ; Start 08/18/16 at 11:30; Stop 08/19/16 at 13:37; Status DC Prednisone (Deltasone) 20 mg BID PO Last administered on 08/21/16 09:27; Start 08/19/16 at 21:00; Stop 08/21/16 at 18:24; Status DC Aspirin (Ecotrin Ec) 81 mg DAILY PO Last administered on 08/22/16 08:32; Start 08/21/16 at 09:00 Carvedilol (Coreg) 50 mg BID PO Last administered on 08/22/16 08:31; Start at 09:45 Fluoxetine HCl (PROzac) 10 mg HS PO Last administered on 08/21/16 20:32; Start 08/20/16 at 21:00 Minoxidil (Loniten) 20 mg Q12HR PO Last administered on 08/22/16 08:32; Start 08/20/16 at 10:00 Minoxidil (Loniten) 30 mg HS PO ; Start 08/20/16 at 21:00; Status Cancel Minoxidil (Loniten) 30 mg HS PO ; Start 08/20/16 at 21:00; Status Hold Furosemide (Lasix Inj) 40 mg ONCE STAT IV PUSH Last administered on 08/20/16 11:47; Start 08/20/16 at 11:47; Stop 08/20/16 at 11:51; Status DC Furosemide (Lasix) 80 mg DAILY PO Last administered on 08/22/16 08:32; Start 08/20/16 at 14:00 Potassium Chloride (KCl) 30 meq DAILY PO Last administered on 08/22/16 08:31; Start 08/20/16 at 18:00 Potassium Chloride 40 meq 40 meq NOW ONCE PO Last administered on 08/20/16 22 :12; Start 08/20/16 at 21:30; Stop 08/20/16 at 21:32; Status DC Potassium Chloride (KCl 40 Meq Premix Inj) 100 ml @ 25 mls/hr ONCE ONCE IV Last administered on 08/20/16 22:13; Start 08/20/16 at 21:30; Stop 08/21/16 at 01:29; Status DC Potassium Chloride (KCl) 40 meq NOW ONCE PO Last administered on 08/21/16 00: 32; Start 08/20/16 at 23:45; Stop 08/20/16 at 23:46; Status DC Ferrous Sulfate (Ferrous Sulfate) 325 mg DAILY PO Last administered on 08:33; Start 08/22/16 at 09:00 Pantoprazole Sodium (Protonix) 40 mg DAILY PO Last administered on 08/22/16 08 :33; Start 08/22/16 at 09:00 Albuterol/ Ipratropium (Duoneb Neb) 1 ampule TID NEB INH Last administered on 08/22/16 10:14; Start 08/21/16 at 20:00 Prednisone (Deltasone) 20 mg DAILY PO Last administered on 08/22/16 08:32; Start 08/22/16 at 09:00 A/P Assessment and Plan A/P Acute hypoxemic respiratory failure with Pneumonia and Laryngeal/vocal cord edema-resolving continue antibiotics, steroid and neb treatment- pulmonary consult appreciated. Anemia and thrombocytopenia likely due to cirrhosis- will monitor- hematology following; continue supportive care. Liver cirrhosis; continue diuretics- GI consulted. Hypertension; continue coreg, minoxidil- will monitor and adjust the regimen as needed. History of seizure and hemorrhagic stroke; continue keppra Coronary artery disease- continue aspirin and BB Prostate CA- f/u as outpatient history of intracranial hemorrhage- continue PT DVT prophylaxis with SCD's transfer to telemetry today. Discharge Planning possible discharge within the next 24 048 hrs if stable. William Bautista MD Aug 22, 2016 10:25
[2016-08-22] MEDS: FLUoxetine HCL 10 MG CAP PO SCH (20:59)
[2016-08-23] VITALS (9 sets, daily range): BP systolic 111–133; BP diastolic 56–62; PULSE 59–64; RESP 18–20; TEMP 96–98.7; O2SAT 92–98
[2016-08-23] MEDS: PIPERACIL-TAZO 4.5 GM PREMIX 100 ML IV SCH ×4 (03:27→22:25)
[2016-08-23] MEDS: CHLORHEXIDINE GLUCONATE 2 % 1 PACK (2 CLOTHS) TOP SCH (04:00)
[2016-08-23] MEDS: INSULIN NovoLIN REGULAR SUPPLEMENTAL SCALE SQ SCH ×4 (06:00→17:42)
[2016-08-23] MEDS: CARVEDILOL 12.5 MG TAB PO SCH ×2 (08:37→21:00)
[2016-08-23] MEDS: VITAMIN B CMPLX/VITC/FOLIC AC CAP PO SCH (08:37)
[2016-08-23] MEDS: POTASSIUM CHLORIDE 10 MEQ CONTROLLED RELEASE TAB PO SCH (08:38)
[2016-08-23] MEDS: hydrALAZINE HCL 25 MG TAB PO SCH ×3 (08:38→16:44)
[2016-08-23] MEDS: lamoTRIgine 100 MG TAB PO SCH ×2 (08:38→22:26)
[2016-08-23] MEDS: predniSONE 20 MG TAB PO SCH (08:38)
[2016-08-23] MEDS: FERROUS SULFATE 325 MG (65 MG ELEMENTAL IRON) TAB PO SCH (08:38)
[2016-08-23] MEDS: MINOXIDIL 10 MG TAB PO SCH ×2 (08:38→22:26)
[2016-08-23] MEDS: FUROSEMIDE 80 MG TAB PO SCH (08:39)
[2016-08-23] MEDS: levETIRAcetam 250 MG TAB PO SCH ×2 (08:39→22:26)
[2016-08-23] MEDS: ASPIRIN EC 81 MG TABEC PO SCH (08:39)
[2016-08-23] MEDS: PANTOPRAZOLE SOD 40 MG DELAYED RELEASE TAB PO SCH (08:39)
--- NOTE | 2016-08-23 08:54 | HHI.PR ---
Subjective Remarks in no acute distress. sob has much improved. no fever. d/w the RN and no acute issues over night. Objective Vitals Vital Signs Date Time Temp Pulse Resp B/P Pulse Ox O2 Delivery O2 Flow Rate FiO2 08/23/16 08:00 97.8 60 20 133/61 94 08/23/16 04:00 98.4 63 20 124/62 97 08/23/16 00:00 98.6 62 20 111/56 96 08/22/16 22:00 66 08/22/16 20:47 96 Nasal Cannula 4.00 08/22/16 20:00 62 08/22/16 20:00 98.3 62 26 117/57 95 08/22/16 18:00 63 08/22/16 16:00 62 08/22/16 16:00 98.5 62 20 118/58 86 08/22/16 14:00 61 08/22/16 12:00 98.0 60 20 119/59 94 08/22/16 12:00 60 08/22/16 10:30 94 Nasal Cannula 3.00 08/22/16 10:00 60 I/O 08/22/16 08/22/16 08/22/16 08/23/16 08/23/16 08/23/16 07:00 15:00 23:00 07:00 15:00 23:00 Intake Total 143 ml 1212 ml 128 ml 240 ml Output Total 275 ml 1700 ml 900 ml 200 ml Balance -132 ml -488 ml -772 ml 40 ml Intake Oral 960 ml 240 ml IV Total 143 ml 252 ml 128 ml Output Urine Total 275 ml 1700 ml 900 ml 200 ml # Bowel Movements 0 0 Result Diagram: 08/21/16 1844 08/21/16 1844 Imaging Last Impressions Chest X-Ray 08/20/16 0000 Signed Impressions: Service Date/Time: Saturday, August 20, 2016 12:17 - CONCLUSION: Stable chest other than removal of the ET tube and nasogastric tube. Trey Shine MD Liver Ultrasound 08/19/16 0000 Signed Impressions: Service Date/Time: Friday, August 19, 2016 08:19 - CONCLUSION: Hepatosplenomegaly with somewhat nodular liver increased echogenicity and ascitic fluid consistent with cirrhosis hepatocellular disease Trey Shine MD CT Angiography 08/16/16 0000 Signed Impressions: Service Date/Time: Tuesday, August 16, 2016 11:06 - CONCLUSION: 1. Evaluation for PE is limited due to severe respiratory motion artifact and less than optimal contrast bolus timing. However, no PE is seen through the lobar vessels. More distal PE cannot be excluded based on this examination. 2. There is consolidation and volume loss in the left lower lobe as well as the right lower lobe. There are trace bilateral pleural effusions. 3. Enlarged lymph nodes are present in the left axilla with edema along the left chest wall. Suggest correlation with clinical history and exam. 4. There is free fluid in the visualized upper abdomen. Shaquille Bustos MD Objective Remarks GENERAL:looks and feels better today CARDIOVASCULAR: Regular rate and irregular rhythm without murmurs, gallops, or rubs. RESPIRATORY: Clear to auscultation. Breath sounds equal bilaterally. No wheezes , rales, or rhonchi. GASTROINTESTINAL: Abdomen soft, non-tender, nondistended. Normal, active bowel sounds MUSCULOSKELETAL: Extremities without clubbing, cyanosis, or edema. NEURO: Alert & Oriented x4 to person, place, time, situation. Procedures endotracheal intubation Medications and IVs Current Medications Vancomycin HCl 1000 mg/Sodium Chloride 250 ml @ 250 mls/hr ONCE STAT IV Last administered on 08/16/16 08:58; Start 08/16/16 at 08:19; Stop 08/16/16 at 09:18 ; Status DC Piperacillin Sod/ Tazobactam Sod (Zosyn 4.5 Gm Premix) 100 ml @ 200 mls/hr ONCE STAT IV Last administered on 08/16/16 08:33; Start 08/16/16 at 08:19; Stop 08/16/16 at 08:48; Status DC Albuterol/ Ipratropium (Duoneb Neb) 1 ampule ONCE ONCE NEB Last administered on 08/16/16 08:37; Start 08/16/16 at 08:30; Stop 08/16/16 at 08:31; Status DC Etomidate (Amidate Inj) 20 mg ONCE ONCE IV PUSH Last administered on 09:50; Start 08/16/16 at 09:45; Stop 08/16/16 at 09:46; Status DC Succinylcholine Chloride 100 mg 100 mg ONCE ONCE IVP Last administered on 08/16 09:50; Start 08/16/16 at 09:45; Stop 08/16/16 at 09:46; Status DC Propofol (Diprivan 1000 Mg/100ml Inj) 100 ml @ 0 mls/hr TITRATE IV Last administered on 08/18/16 11:21; Start 08/16/16 at 09:45; Stop 08/19/16 at 13:37 ; Status DC Iohexol (Omnipaque 350 Inj) 75 ml STK-MED ONCE IV Last administered on 11:12; Start 08/16/16 at 11:12; Stop 08/16/16 at 11:13; Status DC Pantoprazole Sodium (Protonix Inj) 40 mg DAILY IV Last administered on 09:26; Start 08/16/16 at 13:15; Stop 08/21/16 at 09:48; Status DC Albuterol/ Ipratropium (Duoneb Neb) 1 ampule Q6HR NEB INH Last administered on 08/21/16 16:36; Start 08/16/16 at 16:00; Stop 08/21/16 at 18:24; Status DC Miscellaneous Information 1 Q361D XX ; Start 08/16/16 at 13:15 Chlorhexidine Gluconate (Chlorhexidine 2% Cloth) Taper DAILY@04 TOP Last administered on 08/22/16 00:58; Start 08/17/16 at 04:00; Stop 08/13/17 at 03:59 Chlorhexidine Gluconate (Chlorhexidine 2% Cloth) 3 pack UNSCH PRN TOP HYGIENIC CARE; Start 08/16/16 at 13:15 Methylprednisolone Sodium Succinate (SoluMEDROL INJ) 60 mg Q8HR IV PUSH Last administered on 08/19/16 05:23; Start 08/16/16 at 14:00; Stop 08/19/16 at 13:37 ; Status DC Dextrose (D50w (Vial) Inj) 25 ml UNSCH PRN IV PUSH HYPOGLYCEMIA-SEE COMMENTS; Start 08/16/16 at 13:15 Glucagon (Glucagon Inj) 1 mg UNSCH PRN OTHER HYPOGLYCEMIA-SEE COMMENTS; Start 08/16/16 at 13:15 Insulin Human Regular 1 1 Q6H SQ ; Start 08/16/16 at 13:15; Stop 08/16/16 at 13: 18; Status DC Piperacillin Sod/ Tazobactam Sod (Zosyn 4.5 Gm Premix) 100 ml @ 200 mls/hr Q6H IV Last administered on 08/23/16 03:27; Start 08/16/16 at 14:00 Ferrous Sulfate (Ferrous Sulfate Liq) 130 mg BIDPC PO Last administered on 08/20 18:00; Start 08/16/16 at 18:00; Stop 08/21/16 at 09:48; Status DC Hydralazine HCl (Apresoline) 25 mg TID PO Last administered on 08/22/16 18:00 ; Start 08/16/16 at 18:00 Lamotrigine (LaMICtal) 300 mg BID PO Last administered on 08/22/16 20:59; Start 08/16/16 at 21:00 Levetriacetam (Keppra) 500 mg BID PO Last administered on 08/22/16 20:59; Start 08/16/16 at 21:00 Levothyroxine Sodium (Synthroid) 150 mcg DAILY PO Last administered on 08:31; Start 08/17/16 at 09:00 Vitamin B Complex/ Vit C/Folic Acid (Nephrocaps) 1 cap DAILY PO Last administered on 08/22/16 08:31; Start 08/17/16 at 09:00 Insulin Human Regular (NovoLIN R SUPPLEMENTAL SCALE) 1 Q6HR SQ Last administered on 08/18/16 13:15; Start 08/16/16 at 18:00 Hydralazine HCl (Apresoline Inj) 10 mg Q6H PRN IV PUSH SYS BP GREATER THAN 160 MMHG Last administered on 08/20/16 10:45; Start 08/16/16 at 17:00; Stop at 23:46; Status DC Influenza Virus Vaccine 0.5 ml 0.5 ml ONCE ONCE IM ; Start 08/17/16 at 10:00; Stop 08/17/16 at 10:01; Status DC Fentanyl Citrate 250 ml @ 0 mls/hr TITRATE IV Last administered on 08/19/16 05 :50; Start 08/18/16 at 11:15; Stop 08/19/16 at 13:37; Status DC Fentanyl Citrate (fentaNYL DRIP) 250 ml @ 0 mls/hr TITRATE IV ; Start 08/18/16 at 11:30; Stop 08/19/16 at 13:37; Status DC Prednisone (Deltasone) 20 mg BID PO Last administered on 08/21/16 09:27; Start 08/19/16 at 21:00; Stop 08/21/16 at 18:24; Status DC Aspirin (Ecotrin Ec) 81 mg DAILY PO Last administered on 08/22/16 08:32; Start 08/21/16 at 09:00 Carvedilol (Coreg) 50 mg BID PO Last administered on 08/22/16 20:59; Start at 09:45 Fluoxetine HCl (PROzac) 10 mg HS PO Last administered on 08/22/16 20:59; Start 08/20/16 at 21:00 Minoxidil (Loniten) 20 mg Q12HR PO Last administered on 08/22/16 08:32; Start 08/20/16 at 10:00 Minoxidil (Loniten) 30 mg HS PO ; Start 08/20/16 at 21:00; Status Cancel Minoxidil (Loniten) 30 mg HS PO ; Start 08/20/16 at 21:00; Status Hold Furosemide (Lasix Inj) 40 mg ONCE STAT IV PUSH Last administered on 08/20/16 11:47; Start 08/20/16 at 11:47; Stop 08/20/16 at 11:51; Status DC Furosemide (Lasix) 80 mg DAILY PO Last administered on 08/22/16 08:32; Start 08/20/16 at 14:00 Potassium Chloride (KCl) 30 meq DAILY PO Last administered on 08/22/16 08:31; Start 08/20/16 at 18:00 Potassium Chloride 40 meq 40 meq NOW ONCE PO Last administered on 08/20/16 22 :12; Start 08/20/16 at 21:30; Stop 08/20/16 at 21:32; Status DC Potassium Chloride (KCl 40 Meq Premix Inj) 100 ml @ 25 mls/hr ONCE ONCE IV Last administered on 08/20/16 22:13; Start 08/20/16 at 21:30; Stop 08/21/16 at 01:29; Status DC Potassium Chloride (KCl) 40 meq NOW ONCE PO Last administered on 08/21/16 00: 32; Start 08/20/16 at 23:45; Stop 08/20/16 at 23:46; Status DC Ferrous Sulfate (Ferrous Sulfate) 325 mg DAILY PO Last administered on 08:33; Start 08/22/16 at 09:00 Pantoprazole Sodium (Protonix) 40 mg DAILY PO Last administered on 08/22/16 08 :33; Start 08/22/16 at 09:00 Albuterol/ Ipratropium (Duoneb Neb) 1 ampule TID NEB INH Last administered on 08/22/16 20:45; Start 08/21/16 at 20:00 Prednisone (Deltasone) 20 mg DAILY PO Last administered on 08/22/16 08:32; Start 08/22/16 at 09:00 A/P Assessment and Plan A/P Acute hypoxemic respiratory failure with Pneumonia and Laryngeal/vocal cord edema-resolving continue antibiotics, steroid and neb treatment- pulmonary consult appreciated. walk test today. Anemia and thrombocytopenia likely due to cirrhosis- will monitor- hematology following; continue supportive care- f/u as outpatient. Liver cirrhosis; continue diuretics- GI consulted- f/u as outpatient. Hypertension; continue coreg, minoxidil- History of seizure and hemorrhagic stroke; continue keppra Coronary artery disease- continue aspirin and BB Prostate CA- f/u as outpatient history of intracranial hemorrhage- continue PT DVT prophylaxis with SCD's dc bai cath. Discharge Planning possible dc home later today or in am - pending walk test and if ok with pulmonary. will consult case management for C. walk test before discharge. see med list. f/u;pcp, hematology and GI. d/w the patient and RN. time spent 35 min. William Bautista MD Aug 23, 2016 08:54
[2016-08-23] MEDS ORDERED: LEVA500T PO (09:00)
[2016-08-23] MEDS ORDERED: VENTAER INH (09:00)
[2016-08-23] MEDS ORDERED: PRED5TAB PO (09:00)
[2016-08-23] MEDS: LEVOTHYROXINE SODIUM 150 MCG TAB PO SCH (09:00)
--- NOTE | 2016-08-23 09:00 | HHI.DCPOC ---
Discharge Care Plan Diagnosis: (1) Pneumonia Your Health Problems Are: Shortness of Breath Goals to Promote Your Health * To prevent worsening of your condition and complications * To maintain your health at the optimal level Directions to Meet Your Goals Take your medications as prescribed Follow your dietary instruction Follow activity as directed Keep your appointments as scheduled Take your immunizations and boosters as scheduled If your symptoms worsen call your PCP, if no PCP go to Urgent Care Center or Emergency Room Smoking is Dangerous to Your Health. Avoid second hand smoke Call the 24-hour hour crisis hotline for domestic abuse at William Bautista MD Aug 23, 2016 09:00
--- NOTE | 2016-08-23 09:01 | HHI.FF ---
Face to Face Verification Diagnosis: (1) Pneumonia (2) Left hemiparesis Physical Therapy Order: Evaluate and Treat Home Health Nursing Order: Medical education Signs/symptoms of disease process Medication education-adverse effect Nursing assessment with vital signs I have seen patient Donovan Martines Jr Hai on 08/23/16. My clinical findings support the need for the requested home health care services because: Ltd mobility - disease progression I certify that my clinical findings support that this patient is homebound because: Unsteady gait/balance William Bautista MD Aug 23, 2016 09:01
--- NOTE | 2016-08-23 09:02 | HHI.DS ---
Discharge Summary Admission Date Aug 16, 2016 at 13:08 Discharge Date: Aug 25, 2016 Admitting Diagnosis SOB, POSSIBLE TRACHEITIS. (1) Pneumonia ICD Code: J18.9 Diagnosis: Principal Procedures endotracheal intubation Brief History - From Admission The patient is a 76-year-old male with past medical history of hypertension, intracranial hemorrhage back in 2008, seizure, coronary artery disease, prostate CA and hypothyroidism. He presented to the [facility] Emergency Department with a history of cough, shortness of breath, congestion and subjective fever for the past week. The patient initially went to his primary care physician and was given azithromycin. However, his condition gradually worsened CBC/BMP: 08/21/16 1844 08/21/16 1844 Significant Findings Laboratory Tests Test 08/20/16 08/20/16 08/21/16 11:49 18:37 18:44 Red Blood Count 3.23 MIL/MM3 3.08 MIL/MM3 (4.50-5.90) (4.50-5.90) Hemoglobin 11.3 GM/DL 10.8 GM/DL (13.0-17.0) (13.0-17.0) Hematocrit 32.3 % 30.6 % (39.0-51.0) (39.0-51.0) Mean Corpuscular Hemoglobin 34.8 PG 34.9 PG (27.0-34.0) (27.0-34.0) Platelet Count 67 TH/MM3 78 TH/MM3 (150-450) (150-450) Neutrophils (%) (Auto) 82.5 % 92.1 % (16.0-70.0) (16.0-70.0) Lymphocytes (%) (Auto) 7.6 % 3.9 % (9.0-44.0) (9.0-44.0) Monocytes (%) (Auto) 9.5 % (0.0-8.0) Lymphocytes # (Auto) 0.7 TH/MM3 0.4 TH/MM3 (1.0-4.8) (1.0-4.8) Neutrophils % (Manual) 83 % (16-70) Lymphocytes % 8 % (9-44) Platelet Estimate LOW (NORMAL) Potassium Level 2.9 MEQ/L (3.5-5.1) Neutrophils # (Auto) 8.8 TH/MM3 (1.8-7.7) Carbon Dioxide Level 32.5 MEQ/L (21.0-32.0) Anion Gap 4 MEQ/L (5-15) Blood Urea Nitrogen 21 MG/DL (7-18) Random Glucose 162 MG/DL (74-106) Calcium Level 7.9 MG/DL (8.5-10.1) Total Protein 5.7 GM/DL (6.4-8.2) Albumin 2.9 GM/DL (3.4-5.0) Imaging Last Impressions Chest X-Ray 08/20/16 0000 Signed Impressions: Service Date/Time: Saturday, August 20, 2016 12:17 - CONCLUSION: Stable chest other than removal of the ET tube and nasogastric tube. Trey Shine MD Liver Ultrasound 08/19/16 0000 Signed Impressions: Service Date/Time: Friday, August 19, 2016 08:19 - CONCLUSION: Hepatosplenomegaly with somewhat nodular liver increased echogenicity and ascitic fluid consistent with cirrhosis hepatocellular disease Trey Shine MD CT Angiography 08/16/16 0000 Signed Impressions: Service Date/Time: Tuesday, August 16, 2016 11:06 - CONCLUSION: 1. Evaluation for PE is limited due to severe respiratory motion artifact and less than optimal contrast bolus timing. However, no PE is seen through the lobar vessels. More distal PE cannot be excluded based on this examination. 2. There is consolidation and volume loss in the left lower lobe as well as the right lower lobe. There are trace bilateral pleural effusions. 3. Enlarged lymph nodes are present in the left axilla with edema along the left chest wall. Suggest correlation with clinical history and exam. 4. There is free fluid in the visualized upper abdomen. Shaquille Bustos MD PE at Discharge GENERAL:looks and feels better today CARDIOVASCULAR: Regular rate and irregular rhythm without murmurs, gallops, or rubs. RESPIRATORY: Clear to auscultation. Breath sounds equal bilaterally. No wheezes , rales, or rhonchi. GASTROINTESTINAL: Abdomen soft, non-tender, nondistended. Normal, active bowel sounds MUSCULOSKELETAL: Extremities without clubbing, cyanosis, or edema. NEURO: Alert & Oriented x4 to person, place, time, situation. Hospital Course Acute hypoxemic respiratory failure with Pneumonia and Laryngeal/vocal cord edema-resolving continue antibiotics, steroid and neb treatment- pulmonary consult appreciated. Anemia and thrombocytopenia likely due to cirrhosis- will monitor- hematology following; continue supportive care- f/u as outpatient. Liver cirrhosis; continue diuretics- GI consulted- f/u as outpatient. Hypertension; continue coreg, minoxidil- History of seizure and hemorrhagic stroke; continue keppra Coronary artery disease- continue aspirin and BB Prostate CA- f/u as outpatient history of intracranial hemorrhage- continue PT DVT prophylaxis with SCD's Pt Condition on Discharge: Fair Discharge Disposition: Disch w/ Home Health Serv Discharge Time: > 30 minutes Discharge Instructions DIET: Follow Instructions for: Heart Healthy Diet Activities you can perform: Regular-No Restrictions Follow up Referrals: Gastroenterology Oncology PCP Follow-up New Medications: Albuterol 18 GM Inh (Ventolin Hfa 18 GM Inh) 90 Mcg/Act Aer 2 PUFF INH Q6H PRN SHORTNESS OF BREATH #1 Ref 0 INHALER Levofloxacin (Levaquin) 500 Mg Tab 500 MG PO DAILY Infection Days 5 Ref 0 TAB Prednisone (Prednisone) 5 Mg Tab 5 MG PO DIRECTED 20 mg po daily for two days then 10 mg po daily for two days then 5 mg po daily for two days then stop. Shortness of Breath Days 6 Ref 0 TAB Continued Medications: Albuterol 18 GM Inh (Ventolin Hfa 18 GM Inh) 90 Mcg/Act Aer 1-2 PUFF INH Q4-6H PRN SHORTNESS OF BREATH #1 Ref [address] (Aspirin 81) 81 Mg Tabdr 81 MG PO EVERY 3 DAYS Ref 0 TAB B-Complex W/ Folic Acid (Super B Complex Maxi) 1 Tab 1 TAB PO DAILY TAB Carvedilol (Carvedilol) 25 Mg Tab 50 MG PO BID #60 Ref 0 TAB Coenzyme Q10 (Ubidecarenone) (Coq-10) 100 Mg Cap 100 MG PO DAILY Docusate Sodium (Colace) 100 Mg Cap 100 MG PO BID Constipation #60 Ref 0 CAP Ferrous Sulfate (Feosol) 65 Mg Tab 130 MG PO BIDPC Nutritional Supplement #60 Ref 0 TAB Fluoxetine (Fluoxetine) 40 Mg Cap 40 CAP PO HS #30 Ref 0 CAP Furosemide (Furosemide) 80 Mg Tab 80 MG PO DAILY #30 Ref 0 TAB Guaifenesin ER 12 HR (Mucinex ER 12 HR) 600 Mg Melissa 600-1200 MG PO Q12HR Not to Exceed 4 tablets/24hrs PRN CHEST CONGESTION AND/OR COUGH Ref 0 TAB Hydralazine (Hydralazine) 25 Mg Tab 25 MG PO TID Take with a meal Blood Pressure Management #90 Ref 0 TAB Lamotrigine (Lamictal) 100 Mg Tab 300 MG PO BID Control Seizures #60 Ref 0 TAB Levetiracetam (Keppra) 250 Mg Tab 500 MG PO BID Control Seizures #60 Ref 0 TAB Levothyroxine (Levothyroxine) 150 Mcg Tab 150 MCG PO DAILY Thyroid #30 Ref 0 TAB Lorazepam (Lorazepam) 0.5 Mg Tab 0.5 MG PO HS Ref 0 TAB Minoxidil (Minoxidil) 10 Mg Tab 20 MG PO DAILY AT 12NOON Blood Pressure Management #30 Ref 0 TAB Minoxidil (Minoxidil) 10 Mg Tab 30 MG PO HS Blood Pressure Management #30 Ref 0 TAB Polyethylene Glycol 3350 Powder (Miralax Powder) 17 Gm Powd 17 GM PO DAILY Mix and dissolve one measuring cap-ful (17 grams) in water or juice. Constipation #1 Ref 0 BOTTLE Potassium Chloride Microencaps (Potassium Chloride Microencaps) 20 Meq Tab 20 MEQ PO DAILY Electrolyte Replacement #30 Ref 0 TAB Promethazine-Codeine Liq (Promethazine-Codeine Liq) 6.25-10 Mg/5 Ml Syrp 5 ML PO Q6H PRN CHEST CONGESTION AND/OR COUGH Ref 0 ML Discontinued Medications: Azithromycin (Azithromycin) 250 Mg Tab 250 MG PO DIRECTED Take 2 tabs (500 mg) on day 1 then 1 tab days 2-5 Infection #6 Ref 0 TAB Hydralazine (Hydralazine) 25 Mg Tab 50 MG PO HS Blood Pressure Management #60 Ref 0 TAB Prednisone (21) 5 mg tab Dose Pack (Prednisone (21) 5 mg tab Dose Pack) 5 Mg Dspk 5 MG PO DIRECTED Inflammation #1 Ref 0 DSPK William Bautista MD Aug 23, 2016 09:02
[2016-08-23] MEDS: RESP: ALBUTEROL 2.5 MG/IPRATROPIUM 0.5 MG NEB (SCH) INH ×3 (09:29→20:22)
[2016-08-23] MEDS ORDERED: OXYGENTANK NAS.CANULA (13:33)
--- NOTE | 2016-08-23 13:34 | HHI.FF ---
Face to Face Verification Diagnosis: (1) Pneumonia Physical Therapy Order: Evaluate and Treat Home Health Nursing Order: Medical education Signs/symptoms of disease process Oxygen administration education Medication education-adverse effect Nursing assessment with vital signs I have seen patient Donovan Martines Jr Hai on 08/23/16. My clinical findings support the need for the requested home health care services because: Ltd mobility - disease progression Patient has SOB I certify that my clinical findings support that this patient is homebound because: Unsteady gait/balance William Bautista MD Aug 23, 2016 13:34
[2016-08-23] MEDS: FLUoxetine HCL 10 MG CAP PO SCH (22:25)
[2016-08-24] VITALS (9 sets, daily range): BP systolic 114–140; BP diastolic 33–67; PULSE 33–71; RESP 18–20; TEMP 97.2–98.5; O2SAT 86–96
[2016-08-24] MEDS: PIPERACIL-TAZO 4.5 GM PREMIX 100 ML IV SCH ×4 (02:01→21:37)
[2016-08-24] MEDS: CHLORHEXIDINE GLUCONATE 2 % 1 PACK (2 CLOTHS) TOP SCH (03:35)
[2016-08-24] MEDS: INSULIN NovoLIN REGULAR SUPPLEMENTAL SCALE SQ SCH ×4 (05:13→17:40)
[2016-08-24] MEDS: RESP: ALBUTEROL 2.5 MG/IPRATROPIUM 0.5 MG NEB (SCH) INH ×3 (08:25→20:49)
--- NOTE | 2016-08-24 09:10 | HHI.PR ---
Subjective Remarks in no acute distress but still with some sob and cough. O2 sat dropped to high 86 earlier today. no fever. Objective Vitals Vital Signs Date Time Temp Pulse Resp B/P Pulse Ox O2 Delivery O2 Flow Rate FiO2 08/24/16 08:28 94 Nasal Cannula 2.00 08/24/16 08:15 98.3 71 18 140/67 86 08/24/16 04:00 97.9 33 20 135/63 92 08/24/16 00:00 98.3 67 18 123/33 95 08/23/16 20:22 95 Nasal Cannula 2.00 08/23/16 20:00 98.7 64 18 119/59 94 08/23/16 18:00 59 08/23/16 16:00 97.1 61 20 114/56 95 08/23/16 12:00 96.0 61 20 127/60 92 08/23/16 09:34 98 Nasal Cannula 2.00 I/O 08/23/16 08/23/16 08/23/16 08/24/16 08/24/16 08/24/16 07:00 15:00 23:00 07:00 15:00 23:00 Intake Total 240 ml 840 ml 480 ml 120 ml Output Total 200 ml 1000 ml 800 ml Balance 40 ml -160 ml -320 ml 120 ml Intake Oral 240 ml 840 ml 480 ml 120 ml Output Urine Total 200 ml 1000 ml 800 ml # Voids 2 # Bowel Movements 0 0 Result Diagram: 08/21/164 08/21/16 1844 Imaging Last Impressions Chest X-Ray 08/20/16 0000 Signed Impressions: Service Date/Time: Saturday, August 20, 2016 12:17 - CONCLUSION: Stable chest other than removal of the ET tube and nasogastric tube. Trey Shine MD Liver Ultrasound 08/19/16 0000 Signed Impressions: Service Date/Time: Friday, August 19, 2016 08:19 - CONCLUSION: Hepatosplenomegaly with somewhat nodular liver increased echogenicity and ascitic fluid consistent with cirrhosis hepatocellular disease Trey Shine MD CT Angiography 08/16/16 0000 Signed Impressions: Service Date/Time: Tuesday, August 16, 2016 11:06 - CONCLUSION: 1. Evaluation for PE is limited due to severe respiratory motion artifact and less than optimal contrast bolus timing. However, no PE is seen through the lobar vessels. More distal PE cannot be excluded based on this examination. 2. There is consolidation and volume loss in the left lower lobe as well as the right lower lobe. There are trace bilateral pleural effusions. 3. Enlarged lymph nodes are present in the left axilla with edema along the left chest wall. Suggest correlation with clinical history and exam. 4. There is free fluid in the visualized upper abdomen. Shaquille Bustos MD Objective Remarks GENERAL:looks and feels better today CARDIOVASCULAR: Regular rate and irregular rhythm without murmurs, gallops, or rubs. RESPIRATORY: Clear to auscultation. Breath sounds equal bilaterally. No wheezes , rales, or rhonchi. GASTROINTESTINAL: Abdomen soft, non-tender, nondistended. Normal, active bowel sounds MUSCULOSKELETAL: Extremities without clubbing, cyanosis, or edema. NEURO: Alert & Oriented x4 to person, place, time, situation. Procedures endotracheal intubation Medications and IVs Current Medications Vancomycin HCl 1000 mg/Sodium Chloride 250 ml @ 250 mls/hr ONCE STAT IV Last administered on 08/16/16 08:58; Start 08/16/16 at 08:19; Stop 08/16/16 at 09:18 ; Status DC Piperacillin Sod/ Tazobactam Sod (Zosyn 4.5 Gm Premix) 100 ml @ 200 mls/hr ONCE STAT IV Last administered on 08/16/16 08:33; Start 08/16/16 at 08:19; Stop 08/16/16 at 08:48; Status DC Albuterol/ Ipratropium (Duoneb Neb) 1 ampule ONCE ONCE NEB Last administered on 08/16/16 08:37; Start 08/16/16 at 08:30; Stop 08/16/16 at 08:31; Status DC Etomidate (Amidate Inj) 20 mg ONCE ONCE IV PUSH Last administered on 09:50; Start 08/16/16 at 09:45; Stop 08/16/16 at 09:46; Status DC Succinylcholine Chloride 100 mg 100 mg ONCE ONCE IVP Last administered on 08/16 09:50; Start 08/16/16 at 09:45; Stop 08/16/16 at 09:46; Status DC Propofol (Diprivan 1000 Mg/100ml Inj) 100 ml @ 0 mls/hr TITRATE IV Last administered on 08/18/16 11:21; Start 08/16/16 at 09:45; Stop 08/19/16 at 13:37 ; Status DC Iohexol (Omnipaque 350 Inj) 75 ml STK-MED ONCE IV Last administered on 11:12; Start 08/16/16 at 11:12; Stop 08/16/16 at 11:13; Status DC Pantoprazole Sodium (Protonix Inj) 40 mg DAILY IV Last administered on 09:26; Start 08/16/16 at 13:15; Stop 08/21/16 at 09:48; Status DC Albuterol/ Ipratropium (Duoneb Neb) 1 ampule Q6HR NEB INH Last administered on 08/21/16 16:36; Start 08/16/16 at 16:00; Stop 08/21/16 at 18:24; Status DC Miscellaneous Information 1 [id number] XX ; Start 08/16/16 at 13:15 Chlorhexidine Gluconate (Chlorhexidine 2% Cloth) Taper DAILY@04 TOP Last administered on 08/22/16 00:58; Start 08/17/16 at 04:00; Stop 08/13/17 at 03:59 Chlorhexidine Gluconate (Chlorhexidine 2% Cloth) 3 pack UNSCH PRN TOP HYGIENIC CARE; Start 08/16/16 at 13:15 Methylprednisolone Sodium Succinate (SoluMEDROL INJ) 60 mg Q8HR IV PUSH Last administered on 08/19/16 05:23; Start 08/16/16 at 14:00; Stop 08/19/16 at 13:37 ; Status DC Dextrose (D50w (Vial) Inj) 25 ml UNSCH PRN IV PUSH HYPOGLYCEMIA-SEE COMMENTS; Start 08/16/16 at 13:15 Glucagon (Glucagon Inj) 1 mg UNSCH PRN OTHER HYPOGLYCEMIA-SEE COMMENTS; Start 08/16/16 at 13:15 Insulin Human Regular 1 1 Q6H SQ ; Start 08/16/16 at 13:15; Stop 08/16/16 at 13: 18; Status DC Piperacillin Sod/ Tazobactam Sod (Zosyn 4.5 Gm Premix) 100 ml @ 200 mls/hr Q6H IV Last administered on 08/24/16 02:01; Start 08/16/16 at 14:00 Ferrous Sulfate (Ferrous Sulfate Liq) 130 mg BIDPC PO Last administered on 08/20 18:00; Start 08/16/16 at 18:00; Stop 08/21/16 at 09:48; Status DC Hydralazine HCl (Apresoline) 25 mg TID PO Last administered on 08/23/16 16:44 ; Start 08/16/16 at 18:00 Lamotrigine (LaMICtal) 300 mg BID PO Last administered on 08/23/16 22:26; Start 08/16/16 at 21:00 Levetriacetam (Keppra) 500 mg BID PO Last administered on 08/23/16 22:26; Start 08/16/16 at 21:00 Levothyroxine Sodium (Synthroid) 150 mcg DAILY PO Last administered on 09:00; Start 08/17/16 at 09:00 Vitamin B Complex/ Vit C/Folic Acid (Nephrocaps) 1 cap DAILY PO Last administered on 08/23/16 08:37; Start 08/17/16 at 09:00 Insulin Human Regular (NovoLIN R SUPPLEMENTAL SCALE) 1 Q6HR SQ Last administered on 08/23/16 17:42; Start 08/16/16 at 18:00 Hydralazine HCl (Apresoline Inj) 10 mg Q6H PRN IV PUSH SYS BP GREATER THAN 160 MMHG Last administered on 08/20/16 10:45; Start 08/16/16 at 17:00; Stop at 23:46; Status DC Influenza Virus Vaccine 0.5 ml 0.5 ml ONCE ONCE IM ; Start 08/17/16 at 10:00; Stop 08/17/16 at 10:01; Status DC Fentanyl Citrate 250 ml @ 0 mls/hr TITRATE IV Last administered on 08/19/16 05 :50; Start 08/18/16 at 11:15; Stop 08/19/16 at 13:37; Status DC Fentanyl Citrate (fentaNYL DRIP) 250 ml @ 0 mls/hr TITRATE IV ; Start 08/18/16 at 11:30; Stop 08/19/16 at 13:37; Status DC Prednisone (Deltasone) 20 mg BID PO Last administered on 08/21/16 09:27; Start 08/19/16 at 21:00; Stop 08/21/16 at 18:24; Status DC Aspirin (Ecotrin Ec) 81 mg DAILY PO Last administered on 08/23/16 08:39; Start 08/21/16 at 09:00 Carvedilol (Coreg) 50 mg BID PO Last administered on 08/23/16 08:37; Start at 09:45 Fluoxetine HCl (PROzac) 10 mg HS PO Last administered on 08/23/16 22:25; Start 08/20/16 at 21:00 Minoxidil (Loniten) 20 mg Q12HR PO Last administered on 08/23/16 22:26; Start 08/20/16 at 10:00 Minoxidil (Loniten) 30 mg HS PO ; Start 08/20/16 at 21:00; Status Cancel Minoxidil (Loniten) 30 mg HS PO ; Start 08/20/16 at 21:00; Status Hold Furosemide (Lasix Inj) 40 mg ONCE STAT IV PUSH Last administered on 08/20/16 11:47; Start 08/20/16 at 11:47; Stop 08/20/16 at 11:51; Status DC Furosemide (Lasix) 80 mg DAILY PO Last administered on 08/23/16 08:39; Start 08/20/16 at 14:00 Potassium Chloride (KCl) 30 meq DAILY PO Last administered on 08/23/16 08:38; Start 08/20/16 at 18:00 Potassium Chloride 40 meq 40 meq NOW ONCE PO Last administered on 08/20/16 22 :12; Start 08/20/16 at 21:30; Stop 08/20/16 at 21:32; Status DC Potassium Chloride (KCl 40 Meq Premix Inj) 100 ml @ 25 mls/hr ONCE ONCE IV Last administered on 08/20/16 22:13; Start 08/20/16 at 21:30; Stop 08/21/16 at 01:29; Status DC Potassium Chloride (KCl) 40 meq NOW ONCE PO Last administered on 08/21/16 00: 32; Start 08/20/16 at 23:45; Stop 08/20/16 at 23:46; Status DC Ferrous Sulfate (Ferrous Sulfate) 325 mg DAILY PO Last administered on 08:38; Start 08/22/16 at 09:00 Pantoprazole Sodium (Protonix) 40 mg DAILY PO Last administered on 08/23/16 08 :39; Start 08/22/16 at 09:00 Albuterol/ Ipratropium (Duoneb Neb) 1 ampule TID NEB INH Last administered on 08/24/16 08:25; Start 08/21/16 at 20:00 Prednisone (Deltasone) 20 mg DAILY PO Last administered on 08/23/16 08:38; Start 08/22/16 at 09:00 A/P Assessment and Plan A/P Acute hypoxemic respiratory failure with Pneumonia and Laryngeal/vocal cord edema-improving. continue antibiotics, steroid and neb treatment- pulmonary consult appreciated. walk test performed yesterday and the patient requires home oxygen. Anemia and thrombocytopenia likely due to cirrhosis- will monitor- hematology following; continue supportive care- f/u as outpatient. Liver cirrhosis; continue diuretics- GI consulted- f/u as outpatient. Hypertension; continue coreg, minoxidil- History of seizure and hemorrhagic stroke; continue keppra Coronary artery disease- continue aspirin and BB Prostate CA- f/u as outpatient history of intracranial hemorrhage- continue PT DVT prophylaxis with SCD's Discharge Planning d/w the patient and now the patient is considering rehab. will consult case management for dc planning to rehab. possible discharge tomorrow if stable and cleared by pulmonary. William Bautista MD Aug 24, 2016 09:10
[2016-08-24] MEDS ORDERED: LORA-373 PO ×2 (09:11→09:13)
[2016-08-24] MEDS: FUROSEMIDE 80 MG TAB PO SCH (09:44)
[2016-08-24] MEDS: VITAMIN B CMPLX/VITC/FOLIC AC CAP PO SCH (09:44)
[2016-08-24] MEDS: MINOXIDIL 10 MG TAB PO SCH ×2 (09:44→21:37)
[2016-08-24] MEDS: LEVOTHYROXINE SODIUM 150 MCG TAB PO SCH (09:44)
[2016-08-24] MEDS: predniSONE 20 MG TAB PO SCH (09:44)
[2016-08-24] MEDS: ASPIRIN EC 81 MG TABEC PO SCH (09:44)
[2016-08-24] MEDS: FERROUS SULFATE 325 MG (65 MG ELEMENTAL IRON) TAB PO SCH (09:44)
[2016-08-24] MEDS: hydrALAZINE HCL 25 MG TAB PO SCH ×3 (09:45→17:37)
[2016-08-24] MEDS: CARVEDILOL 12.5 MG TAB PO SCH ×2 (09:45→21:00)
[2016-08-24] MEDS: lamoTRIgine 100 MG TAB PO SCH ×2 (09:45→21:37)
[2016-08-24] MEDS: levETIRAcetam 250 MG TAB PO SCH ×2 (09:45→21:37)
[2016-08-24] MEDS: POTASSIUM CHLORIDE 10 MEQ CONTROLLED RELEASE TAB PO SCH (09:45)
[2016-08-24] MEDS: PANTOPRAZOLE SOD 40 MG DELAYED RELEASE TAB PO SCH (09:45)
[2016-08-24] MEDS: FLUoxetine HCL 10 MG CAP PO SCH (21:37)
[2016-08-25] VITALS: BP 120/67; PULSE 68; RESP 18; TEMP 98.3; O2SAT 97
[2016-08-25] MEDS: PIPERACIL-TAZO 4.5 GM PREMIX 100 ML IV SCH ×2 (02:00→08:38)
[2016-08-25 04:00] VITALS: BP 132/60; PULSE 69; RESP 18; TEMP 97.8; O2SAT 92
[2016-08-25] MEDS: CHLORHEXIDINE GLUCONATE 2 % 1 PACK (2 CLOTHS) TOP SCH (04:00)
[2016-08-25] MEDS: INSULIN NovoLIN REGULAR SUPPLEMENTAL SCALE SQ SCH ×3 (06:00→12:00)
[2016-08-25] MEDS: RESP: ALBUTEROL 2.5 MG/IPRATROPIUM 0.5 MG NEB (SCH) INH ×2 (07:59→13:54)
[2016-08-25 08:02] VITALS: O2SAT 94
[2016-08-25 08:33] VITALS: BP 164/69; PULSE 77; RESP 18; TEMP 98.5; O2SAT 95
[2016-08-25] MEDS: VITAMIN B CMPLX/VITC/FOLIC AC CAP PO SCH (08:39)
[2016-08-25] MEDS: ASPIRIN EC 81 MG TABEC PO SCH (08:39)
[2016-08-25] MEDS: CARVEDILOL 12.5 MG TAB PO SCH (08:39)
[2016-08-25] MEDS: levETIRAcetam 250 MG TAB PO SCH (08:39)
[2016-08-25] MEDS: FERROUS SULFATE 325 MG (65 MG ELEMENTAL IRON) TAB PO SCH (08:39)
[2016-08-25] MEDS: lamoTRIgine 100 MG TAB PO SCH (08:40)
[2016-08-25] MEDS: PANTOPRAZOLE SOD 40 MG DELAYED RELEASE TAB PO SCH (08:40)
[2016-08-25] MEDS: predniSONE 20 MG TAB PO SCH (08:40)
[2016-08-25] MEDS: FUROSEMIDE 80 MG TAB PO SCH (08:40)
[2016-08-25] MEDS: MINOXIDIL 10 MG TAB PO SCH (08:40)
[2016-08-25] MEDS: POTASSIUM CHLORIDE 10 MEQ CONTROLLED RELEASE TAB PO SCH (08:40)
[2016-08-25] MEDS: LEVOTHYROXINE SODIUM 150 MCG TAB PO SCH (08:40)
[2016-08-25] MEDS: hydrALAZINE HCL 25 MG TAB PO SCH ×2 (08:41→12:33)
--- NOTE | 2016-08-25 11:03 | HHI.PR ---
Subjective Remarks resting comfortably with no distress. no new complaints and hoping that he would go home today. Objective Vitals Vital Signs Date Time Temp Pulse Resp B/P Pulse Ox O2 Delivery O2 Flow Rate FiO2 08/25/16 08:33 98.5 77 18 164/69 95 08/25/16 08:02 94 Nasal Cannula 2.00 08/25/16 04:00 97.8 69 18 132/60 92 08/25/16 00:00 98.3 68 18 120/67 97 08/24/16 20:50 96 Nasal Cannula 2.00 08/24/16 20:00 98.5 66 18 114/54 96 08/24/16 18:00 62 08/24/16 16:43 97.7 61 18 115/58 93 08/24/16 12:06 97.2 67 18 124/58 96 I/O 08/24/16 08/24/16 08/24/16 08/25/16 08/25/16 08/25/16 07:00 15:00 23:00 07:00 15:00 23:00 Intake Total 120 ml 720 ml 480 ml Output Total 150 ml 400 ml 3 ml Balance 120 ml -150 ml 320 ml 477 ml Intake Oral 120 ml 720 ml 480 ml Output Urine Total 150 ml 400 ml 3 ml # Voids 2 1 Result Diagram: 08/21/164 08/21/164 Imaging Last Impressions Chest X-Ray 08/20/16 0000 Signed Impressions: Service Date/Time: Saturday, August 20, 2016 12:17 - CONCLUSION: Stable chest other than removal of the ET tube and nasogastric tube. Trey Shine MD Liver Ultrasound 08/19/16 0000 Signed Impressions: Service Date/Time: Friday, August 19, 2016 08:19 - CONCLUSION: Hepatosplenomegaly with somewhat nodular liver increased echogenicity and ascitic fluid consistent with cirrhosis hepatocellular disease Trey Shine MD CT Angiography 08/16/16 0000 Signed Impressions: Service Date/Time: Tuesday, August 16, 2016 11:06 - CONCLUSION: 1. Evaluation for PE is limited due to severe respiratory motion artifact and less than optimal contrast bolus timing. However, no PE is seen through the lobar vessels. More distal PE cannot be excluded based on this examination. 2. There is consolidation and volume loss in the left lower lobe as well as the right lower lobe. There are trace bilateral pleural effusions. 3. Enlarged lymph nodes are present in the left axilla with edema along the left chest wall. Suggest correlation with clinical history and exam. 4. There is free fluid in the visualized upper abdomen. Shaquille Bustos MD Objective Remarks GENERAL:looks and feels better today CARDIOVASCULAR: Regular rate and irregular rhythm without murmurs, gallops, or rubs. RESPIRATORY: Clear to auscultation. Breath sounds equal bilaterally. No wheezes , rales, or rhonchi. GASTROINTESTINAL: Abdomen soft, non-tender, nondistended. Normal, active bowel sounds MUSCULOSKELETAL: Extremities without clubbing, cyanosis, or edema. NEURO: Alert & Oriented x4 to person, place, time, situation. Procedures endotracheal intubation Medications and IVs Current Medications Vancomycin HCl 1000 mg/Sodium Chloride 250 ml @ 250 mls/hr ONCE STAT IV Last administered on 08/16/16 08:58; Start 08/16/16 at 08:19; Stop 08/16/16 at 09:18 ; Status DC Piperacillin Sod/ Tazobactam Sod (Zosyn 4.5 Gm Premix) 100 ml @ 200 mls/hr ONCE STAT IV Last administered on 08/16/16 08:33; Start 08/16/16 at 08:19; Stop 08/16/16 at 08:48; Status DC Albuterol/ Ipratropium (Duoneb Neb) 1 ampule ONCE ONCE NEB Last administered on 08/16/16 08:37; Start 08/16/16 at 08:30; Stop 08/16/16 at 08:31; Status DC Etomidate (Amidate Inj) 20 mg ONCE ONCE IV PUSH Last administered on 09:50; Start 08/16/16 at 09:45; Stop 08/16/16 at 09:46; Status DC Succinylcholine Chloride 100 mg 100 mg ONCE ONCE IVP Last administered on 08/16 09:50; Start 08/16/16 at 09:45; Stop 08/16/16 at 09:46; Status DC Propofol (Diprivan 1000 Mg/100ml Inj) 100 ml @ 0 mls/hr TITRATE IV Last administered on 08/18/16 11:21; Start 08/16/16 at 09:45; Stop 08/19/16 at 13:37 ; Status DC Iohexol (Omnipaque 350 Inj) 75 ml STK-MED ONCE IV Last administered on 11:12; Start 08/16/16 at 11:12; Stop 08/16/16 at 11:13; Status DC Pantoprazole Sodium (Protonix Inj) 40 mg DAILY IV Last administered on 09:26; Start 08/16/16 at 13:15; Stop 08/21/16 at 09:48; Status DC Albuterol/ Ipratropium (Duoneb Neb) 1 ampule Q6HR NEB INH Last administered on 08/21/16 16:36; Start 08/16/16 at 16:00; Stop 08/21/16 at 18:24; Status DC Miscellaneous Information 1 Q361D XX ; Start 08/16/16 at 13:15 Chlorhexidine Gluconate (Chlorhexidine 2% Cloth) Taper DAILY@04 TOP Last administered on 08/22/16 00:58; Start 08/17/16 at 04:00; Stop 08/13/17 at 03:59 Chlorhexidine Gluconate (Chlorhexidine 2% Cloth) 3 pack UNSCH PRN TOP HYGIENIC CARE; Start 08/16/16 at 13:15 Methylprednisolone Sodium Succinate (SoluMEDROL INJ) 60 mg Q8HR IV PUSH Last administered on 08/19/16 05:23; Start 08/16/16 at 14:00; Stop 08/19/16 at 13:37 ; Status DC Dextrose (D50w (Vial) Inj) 25 ml UNSCH PRN IV PUSH HYPOGLYCEMIA-SEE COMMENTS; Start 08/16/16 at 13:15 Glucagon (Glucagon Inj) 1 mg UNSCH PRN OTHER HYPOGLYCEMIA-SEE COMMENTS; Start 08/16/16 at 13:15 Insulin Human Regular 1 1 Q6H SQ ; Start 08/16/16 at 13:15; Stop 08/16/16 at 13: 18; Status DC Piperacillin Sod/ Tazobactam Sod (Zosyn 4.5 Gm Premix) 100 ml @ 200 mls/hr Q6H IV Last administered on 08/25/16 08:38; Start 08/16/16 at 14:00 Ferrous Sulfate (Ferrous Sulfate Liq) 130 mg BIDPC PO Last administered on 08/20 18:00; Start 08/16/16 at 18:00; Stop 08/21/16 at 09:48; Status DC Hydralazine HCl (Apresoline) 25 mg TID PO Last administered on 08/25/16 08:41 ; Start 08/16/16 at 18:00 Lamotrigine (LaMICtal) 300 mg BID PO Last administered on 08/25/16 08:40; Start 08/16/16 at 21:00 Levetriacetam (Keppra) 500 mg BID PO Last administered on 08/25/16 08:39; Start 08/16/16 at 21:00 Levothyroxine Sodium (Synthroid) 150 mcg DAILY PO Last administered on 08:40; Start 08/17/16 at 09:00 Vitamin B Complex/ Vit C/Folic Acid (Nephrocaps) 1 cap DAILY PO Last administered on 08/25/16 08:39; Start 08/17/16 at 09:00 Insulin Human Regular (NovoLIN R SUPPLEMENTAL SCALE) 1 Q6HR SQ Last administered on 08/23/16 17:42; Start 08/16/16 at 18:00 Hydralazine HCl (Apresoline Inj) 10 mg Q6H PRN IV PUSH SYS BP GREATER THAN 160 MMHG Last administered on 08/20/16 10:45; Start 08/16/16 at 17:00; Stop at 23:46; Status DC Influenza Virus Vaccine 0.5 ml 0.5 ml ONCE ONCE IM ; Start 08/17/16 at 10:00; Stop 08/17/16 at 10:01; Status DC Fentanyl Citrate 250 ml @ 0 mls/hr TITRATE IV Last administered on 08/19/16 05 :50; Start 08/18/16 at 11:15; Stop 08/19/16 at 13:37; Status DC Fentanyl Citrate (fentaNYL DRIP) 250 ml @ 0 mls/hr TITRATE IV ; Start 08/18/16 at 11:30; Stop 08/19/16 at 13:37; Status DC Prednisone (Deltasone) 20 mg BID PO Last administered on 08/21/16 09:27; Start 08/19/16 at 21:00; Stop 08/21/16 at 18:24; Status DC Aspirin (Ecotrin Ec) 81 mg DAILY PO Last administered on 08/25/16 08:39; Start 08/21/16 at 09:00 Carvedilol (Coreg) 50 mg BID PO Last administered on 08/25/16 08:39; Start at 09:45 Fluoxetine HCl (PROzac) 10 mg HS PO Last administered on 08/24/16 21:37; Start 08/20/16 at 21:00 Minoxidil (Loniten) 20 mg Q12HR PO Last administered on 08/25/16 08:40; Start 08/20/16 at 10:00 Minoxidil (Loniten) 30 mg HS PO ; Start 08/20/16 at 21:00; Status Cancel Minoxidil (Loniten) 30 mg HS PO ; Start 08/20/16 at 21:00; Status Hold Furosemide (Lasix Inj) 40 mg ONCE STAT IV PUSH Last administered on 08/20/16 11:47; Start 08/20/16 at 11:47; Stop 08/20/16 at 11:51; Status DC Furosemide (Lasix) 80 mg DAILY PO Last administered on 08/25/16 08:40; Start 08/20/16 at 14:00 Potassium Chloride (KCl) 30 meq DAILY PO Last administered on 08/25/16 08:40; Start 08/20/16 at 18:00 Potassium Chloride 40 meq 40 meq NOW ONCE PO Last administered on 08/20/16 22 :12; Start 08/20/16 at 21:30; Stop 08/20/16 at 21:32; Status DC Potassium Chloride (KCl 40 Meq Premix Inj) 100 ml @ 25 mls/hr ONCE ONCE IV Last administered on 08/20/16 22:13; Start 08/20/16 at 21:30; Stop 08/21/16 at 01:29; Status DC Potassium Chloride (KCl) 40 meq NOW ONCE PO Last administered on 08/21/16 00: 32; Start 08/20/16 at 23:45; Stop 08/20/16 at 23:46; Status DC Ferrous Sulfate (Ferrous Sulfate) 325 mg DAILY PO Last administered on 08:39; Start 08/22/16 at 09:00 Pantoprazole Sodium (Protonix) 40 mg DAILY PO Last administered on 08/25/16 08 :40; Start 08/22/16 at 09:00 Albuterol/ Ipratropium (Duoneb Neb) 1 ampule TID NEB INH Last administered on 08/25/16 07:59; Start 08/21/16 at 20:00 Prednisone (Deltasone) 20 mg DAILY PO Last administered on 08/25/16 08:40; Start 08/22/16 at 09:00 A/P Assessment and Plan A/P Acute hypoxemic respiratory failure with Pneumonia and Laryngeal/vocal cord edema-improving. continue antibiotics, steroid and neb treatment- pulmonary consult appreciated. walk test performed and the patient requires home oxygen. Anemia and thrombocytopenia likely due to cirrhosis- will monitor- hematology evaluated; continue supportive care- f/u as outpatient. Liver cirrhosis; continue diuretics- GI consulted- f/u as outpatient. Hypertension; continue coreg, minoxidil- History of seizure and hemorrhagic stroke; continue antiepileptics Coronary artery disease- continue aspirin and BB Prostate CA- f/u as outpatient history of intracranial hemorrhage- continue PT DVT prophylaxis with SCD's Discharge Planning rehab was offered but the patient wants to go home today. dc home later this afternoon after seen and cleared by pulmonary. see med list. f/u; pcp, GI and hematology/ pulmonary. d/w the patient, RN,case management. d/w . time spent 32 min. William Bautista MD Aug 25, 2016 11:03
[2016-08-25 12:35] VITALS: BP_SYST 63; PULSE 65; RESP 16; TEMP 98.2; O2SAT 92
== END 2016-08-25 15:08 | disposition home health service (06) | DRG 208 ==
LOC: NEPC 08:03 → NEDA 10:37 → OBSVTOIN 13:08 → HIMW 16:36 → HIME 08-18 16:05 → N05A 08-23 00:17
PROVIDERS: ADMIT Internal Medicine Critical Care Medicine; ATTEND Internal Medicine
PROC: 0BH17EZ Insertion of Endotracheal Airway into Trachea, Via Natural or Artificial Opening (ICD-10-PCS; principal; 2016-08-16)
PROC: 5A1945Z Respiratory Ventilation, 24-96 Consecutive Hours (ICD-10-PCS; 2016-08-16)
DX: J96.01 Acute respiratory failure with hypoxia (principal); D65 Disseminated intravascular coagulation [defibrination syndrome]; J18.9 Pneumonia, unspecified organism; I69.254 Hemiplegia and hemiparesis following other nontraumatic intracranial hemorrhage affecting left non-dominant side; D69.59 Other secondary thrombocytopenia; J38.4 Edema of larynx; I50.9 Heart failure, unspecified; K74.60 Unspecified cirrhosis of liver; D64.9 Anemia, unspecified; I10 Essential (primary) hypertension; I25.10 Atherosclerotic heart disease of native coronary artery without angina pectoris; E03.9 Hypothyroidism, unspecified; G40.909 Epilepsy, unspecified, not intractable, without status epilepticus; Z85.46 Personal history of malignant neoplasm of prostate; Z99.3 Dependence on wheelchair; Z79.82 Long term (current) use of aspirin; I25.2 Old myocardial infarction
CPT/HCPCS: 31500; 36600; 71010; 71275; 76705; 76937; 80048; 80053; 80074; 81001; 82272; 82550; 82552; 82607; 82747; 82805; 82948; 83010; 83540; 83550; 83605; 83615; 83690; 83735; 84100; 84132; 84443; 84466; 84484; 85007; 85025; 85027; 85044; 85060; 85384; 85610; 85730; 86880; 87040; 87086; 87641; 87804; 93005; 94002; 94003; 94150; 94620; 94640; 94664; 94667; 94668; 96365; 96375; C9113; J0330; J0360; J1940; J2543; J2920; J3010; J3370; J3480; J7050; J7512; Q9967

== ENCOUNTER 2017-02-10 14:27 | Emergency (ER) | payer MEDICARE, OTHER ==
[~2017-02-10] VITALS: Ht 172.7 cm; Wt 105.0 kg
[~2017-02-10 14:27] MED LIST changes: +FLUO40CA PO; +HYDR25TA35 PO; +LEVA500T PO; +MUCI600T PO; +OXYGENTANK NAS.CANULA; +PRED5TAB PO; +PROM6.256 PO; -PROZ20CA11 PO; +VENTAER INH
[2017-02-10 14:45] VITALS: BP 122/52; PULSE 57; RESP 18; TEMP 98.4; O2SAT 92
[2017-02-10] MEDS ORDERED: SODIUM CHLORIDE 0.9% FLUSH 10 ML FLUSH IV FLUSH PRN (15:00)
[2017-02-10] MEDS ORDERED: FERR200T PO (15:07)
[2017-02-10] MEDS ORDERED: HYDR-3799 PO (15:07)
[2017-02-10] MEDS ORDERED: BUME2TAB PO (15:07)
[2017-02-10] MEDS ORDERED: COEN1CAP PO (15:07)
[2017-02-10] MEDS ORDERED: COLA100C PO (15:07)
--- NOTE | 2017-02-10 15:11 | PD ---
HPI Chief Complaint: GI Complaint Time Seen by Provider: 14:49 Travel History International Travel<30 days: No Contact w/Intl Traveler<30days: No Traveled to known affect area: No History of Present Illness HPI Patient is a 77-year-old male known to me from previous ER admission presents emergency department for increased abdominal swelling. She is followed by Dr. Sheffield recommended that they come to the emergency department for evaluation of abdominal distention. Patient has a history of CVA leaving left-sided deficits, pneumonia. Patient states he has not been having abdominal pain nausea or vomiting, he has noted that his legs are been more swollen recently. He denies any history of liver disease abdominal pain or fever. He is accompanied by his who confirms the history. States abdominal swelling is been gradually getting worse over the past few weeks. 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) Asthma: No Autoimmune Disease: No Blood Disorders: No Anxiety: No Depression: No Heart Rhythm Problems: No Cancer: Yes (prostate cancer in 1999 with seed implants) Cardiovascular Problems: Yes (with stroke) High Cholesterol: Yes Chemotherapy: No Chest Pain: No Congestive Heart Failure: No COPD: No Cerebrovascular Accident: Yes (2008; L SIDED DEFICIT) Diabetes: No Diminished Hearing: No Endocrine: No Gastrointestinal Disorders: Yes GERD: Yes Genitourinary: Yes Headaches: No Hepatitis: No Hiatal Hernia: No Hypertension: Yes Immune Disorder: No Kidney Stones: No Musculoskeletal: Yes (brace on knee from stroke in 2008) Neurologic: Yes Psychiatric: No Reproductive: No Respiratory: Yes Migraines: No Myocardial Infarction: Yes Radiation Therapy: No Renal Failure: No Seizures: Yes Sleep Apnea: Yes Thyroid Disease: No Ulcer: Yes Influenza Vaccination: No PNEUMOCCOCAL Vaccine (Year): 2009 Past Surgical History Abdominal Surgery: Yes (diverticulitis ) AICD: No Appendectomy: No Arteriovenous Shunt: No Cardiac Surgery: No Cholecystectomy: Yes Ear Surgery: No Endocrine Surgery: No Eye Surgery: No Genitourinary Surgery: No Gynecologic Surgery: No Insulin Pump: No Joint Replacement: No Neurologic Surgery: Yes (brain 10/08/09 stroke) Oral Surgery: No Pacemaker: No Thoracic Surgery: No Other Surgery: Yes Social History Alcohol Use: Yes (SOCIALLY) Tobacco Use: No Substance Use: No Allergies-Medications (Allergen,Severity, Reaction): Coded Allergies: *MDRO Multi-Drug Resistant Organism (Verified Adverse Reaction, Unknown, ) MRSA Sputum 2008. MRSA PCR Screens negative 06/27/15 and 06/29/15 CLEARED PER INFECTION CONTROL Reported Meds & Prescriptions Reported Meds & Active Scripts Active Lorazepam 0.5 Mg Tab 0.5 Mg PO HS PRN Oxygen tank (Oxygen) 1 Ea Tank 2 Liter JAIR.CANULA CONTINUOUS Oxygen Concentrator Portable Gaseous 2 L/min via Nasal Cannula Continuous For 99 months Reported Hydralazine HCl 25 Mg Tablet 25 Mg PO QID Feosol (Ferrous Sulfate) 200 Mg Tab 65 Mg PO DAILY Colace (Docusate Sodium) 100 Mg Capsule 1 Tab PO DAILY Co Q-10 (Coenzyme Q10 (Ubidecarenone)) 100 Mg Cap 1 Tab PO DAILY Bumetanide 2 Mg Tab 4 Mg PO DAILY Minoxidil 10 Mg Tab 30 Mg PO HS Fluoxetine (Fluoxetine HCl) 40 Mg Cap 40 Cap PO HS Potassium Chloride Microencaps 20 Meq Tab 20 Meq PO DAILY Minoxidil 10 Mg Tab 20 Mg PO DAILY AT 12NOON Keppra (Levetiracetam) 250 Mg Tab 500 Mg PO BID Levothyroxine (Levothyroxine Sodium) 150 Mcg Tab 150 Mcg PO DAILY Lamictal (Lamotrigine) 100 Mg Tab 300 Mg PO BID Carvedilol 25 Mg Tab 50 Mg PO BID Aspirin 81 (Aspirin) 81 Mg Tabdr 81 Mg PO EVERY 3 DAYS Review of Systems Except as stated in HPI: all other systems reviewed are Neg Physical Exam Narrative GENERAL: Well-developed well-nourished, in a wheelchair, left-sided deficits present in no obvious distress. Occasionally exhibits wet sounding cough. SKIN: Focused skin assessment warm/dry. HEAD: Atraumatic. Normocephalic. EYES: Pupils equal and round. No scleral icterus. No injection or drainage. ENT: No nasal bleeding or discharge. Mucous membranes pink and moist. NECK: Trachea midline. No JVD. CARDIOVASCULAR: Regular rate and rhythm. No murmur appreciated. RESPIRATORY: No accessory muscle use. Clear to auscultation. Breath sounds equal bilaterally. No increased work of breathing. GASTROINTESTINAL: Abdomen soft, non-tender, mildly distended, dull to percussion.. Hepatic and splenic margins not palpable. No rebound no percussive tenderness, no peritoneal signs. MUSCULOSKELETAL: No obvious deformities. No clubbing. No cyanosis. 1+ pitting edema to bilateral lower extremities.. NEUROLOGICAL: Awake and alert. No obvious cranial nerve deficits. Motor grossly within normal limits. Normal speech. PSYCHIATRIC: Appropriate mood and affect; insight and judgment normal. Data Data Last Documented VS Vital Signs Date Time Temp Pulse Resp B/P Pulse Ox O2 Delivery O2 Flow Rate FiO2 02/10/17 19:10 89 18 135/60 92 02/10/17 17:34 Room Air 02/10/17 14:45 98.4 Orders Complete Blood Count With Diff (02/10/17 15:00) Comprehensive Metabolic Panel (02/10/17 15:00) Lipase (02/10/17 15:00) Ct Abd/Pel W Iv Contrast(Rout) (02/10/17 15:00) Iv Access Insert/Monitor (02/10/17 15:00) Ecg Monitoring (02/10/17 15:00) Oximetry (02/10/17 15:00) Sodium Chloride 0.9% Flush (Ns Flush) (02/10/17 15:00) Chest, Single Ap (02/10/17 15:00) Iohexol 350 Inj (Omnipaque 350 Inj) (02/10/17 17:18) Bumetanide (Bumetanide) (02/10/17 18:45) Labs Laboratory Tests Test 02/10/17 15:25 White Blood Count 4.9 TH/MM3 Red Blood Count 3.43 MIL/MM3 Hemoglobin 11.6 GM/DL Hematocrit 34.7 % Mean Corpuscular Volume 101.2 FL Mean Corpuscular Hemoglobin 33.7 PG Mean Corpuscular Hemoglobin 33.4 % Concent Red Cell Distribution Width 14.8 % Platelet Count 74 TH/MM3 Mean Platelet Volume 7.7 FL Neutrophils (%) (Auto) 72.6 % Lymphocytes (%) (Auto) 12.7 % Monocytes (%) (Auto) 8.3 % Eosinophils (%) (Auto) 4.5 % Basophils (%) (Auto) 1.9 % Neutrophils # (Auto) 3.6 TH/MM3 Lymphocytes # (Auto) 0.6 TH/MM3 Monocytes # (Auto) 0.4 TH/MM3 Eosinophils # (Auto) 0.2 TH/MM3 Basophils # (Auto) 0.1 TH/MM3 CBC Comment AUTO DIFF Differential Comment AUTO DIFF CONFIRMED Platelet Estimate LOW Platelet Morphology Comment NORMAL Sodium Level 141 MEQ/L Potassium Level 3.7 MEQ/L Chloride Level 101 MEQ/L Carbon Dioxide Level 33.6 MEQ/L Anion Gap 6 MEQ/L Blood Urea Nitrogen 32 MG/DL Creatinine 1.30 MG/DL Estimat Glomerular Filtration 54 ML/MIN Rate Random Glucose 110 MG/DL Calcium Level 9.7 MG/DL Total Bilirubin 0.8 MG/DL Aspartate Amino Transf 27 U/L (AST/SGOT) Alanine Aminotransferase 16 U/L (ALT/SGPT) Alkaline Phosphatase 173 U/L Total Protein 7.4 GM/DL Albumin 3.8 GM/DL Lipase 138 U/L MDM Medical Decision Making Medical Screen Exam Complete: Yes Emergency Medical Condition: Yes Differential Diagnosis Ascites, bowel obstruction seems unlikely, acute abdomen highly unlikely, SBP highly likely, liver disease, heart disease, carcinomatosis. Narrative Course Patient roomed emergency department, appears chronically ill but in no acute distress. Is here for increased distention, CAT scan reveals that he has significant amount ascites, do not think it's amenable to ER drainage at this time. Patient is not short of breath nor hemodynamically unstable and I don't think there is indication for emergent paracentesis at this time. Review of prior ultrasound showed the patient has had some ascites in the past as well. Liver tests are normal. Certainly with his history of cerebrovascular disease, there is probably a component of CHF here which is the most likely cause. I discussed with him and given his wet sounding cough needs consideration to the emergency department but he is stating that he is at his baseline. I did get discussed the patient's case with Dr. Sheffield and at this point the patient does not want to be admitted to the hospital and I think is reasonable to try and keep him out of the hospital given he is wheelchair bound and has a history of pneumonia and so they would not want him to be exposed to more microbes. Dr. Sheffield and I have discussed to double the patient's Bumex for the next couple of days and follow-up with her. The patient is agreeable. Discussed signs symptoms that should prompt emergent return. Diagnosis Primary Impression: Ascites Additional Instructions: Take bumex 4mg in the morning and 4mg at dinner time for the next four days. If you have fever, abdominal pain or worsening SOB over the next few days return to the ER. Disposition: DISCHARGE HOME Condition: Stable Rishi Barreto MD Feb 10, 2017 15:11
[2017-02-10 15:30] VITALS: RESP 18; O2SAT 92
[2017-02-10 15:33] LABS: AUTOMATED NEUTROPHIL # 3.6 TH/MM3 (1.8-7.7); BASOPHIL # 0.1 TH/MM3 (0-0.2); BASOPHIL % 1.9 % (0.0-2.0); EOSINOPHIL # 0.2 TH/MM3 (0-0.4); EOSINOPHIL % 4.5 % (0.0-4.0); HEMATOCRIT 34.7 % (39.0-51.0); LYMPH % 12.7 % (9.0-44.0); LYMPHOCYTE # 0.6 TH/MM3 (1.0-4.8); MEAN CELL VOLUME 101.2 FL (80.0-100.0); MEAN CORPUSCULAR HEMOGLOBIN 33.7 PG (27.0-34.0); MEAN CORPUSCULAR HGB CONC 33.4 % (32.0-36.0); MONO % 8.3 % (0.0-8.0); NEUT % 72.6 % (16.0-70.0); PLATELET COUNT 74 TH/MM3 (150-450); RED BLOOD COUNT 3.43 MIL/MM3 (4.50-5.90); RED CELL DISTRIBUTION WIDTH 14.8 % (11.6-17.2); WHITE BLOOD COUNT 4.9 TH/MM3 (4.0-11.0)
[2017-02-10 15:36] LABS: HEMO FLAGS AUTO DIFF
[2017-02-10 15:40] LABS: CHLORIDE 101 MEQ/L (98-107); POTASSIUM 3.7 MEQ/L (3.5-5.1); SODIUM (NA) 141 MEQ/L (136-145)
[2017-02-10 15:43] LABS: ANION GAP 6 MEQ/L (5-15); BICARBONATE 33.6 MEQ/L (21.0-32.0); BLOOD UREA NITROGEN 32 MG/DL (7-18)
[2017-02-10 15:47] LABS: ALT (GPT) 16 U/L (12-78); AST (GOT) 27 U/L (15-37); GLOMERULAR FILTRATION RATE 54 ML/MIN (>89)
[2017-02-10 15:48] LABS: TOTAL BILIRUBIN ADULT 0.8 MG/DL (0.2-1.0)
[2017-02-10 15:49] LABS: ALKALINE PHOSPHATASE 173 U/L (45-117)
--- NOTE | 2017-02-10 16:01 | RADRPT ---
EXAM DATE/TIME: 02/10/2017 15:31 [facility] COMPARISON: CHEST SINGLE AP, August 20, 2016, 12:17. INDICATIONS : Cough since yesterday. MEDICAL HISTORY : Congestive hearrt failure. Hypertension. Diabetes mellitus type 2. SURGICAL HISTORY : None. ENCOUNTER: Initial ACUITY: 2 days PAIN SCORE: 0/10 LOCATION: Bilateral chest FINDINGS: A single view of the chest demonstrates cardiomegaly with mild interstitial prominence and bibasilar densities. Mediastinum unremarkable. Osseous structures are intact. CONCLUSION: Cardiomegaly with interstitial prominence and improving bibasilar densities. Sebastian Holloway MD on February 10, 2017 at 15:59 Board Certified Radiologist. This report was verified electronically.
[2017-02-10 16:17] LABS: PLATELET ESTIMATE SMEAR LOW (NORMAL); PLATELET MORPHOLOGY NORMAL (NORMAL); SCAN/DIFF AUTO DIFF CONFIRMED
[2017-02-10] MEDS ORDERED: IOHEXOL 350 MG/ML 10 ML VIAL (for RAD DIAG) IV ONE (17:18)
[2017-02-10 17:34] VITALS: BP 139/58; PULSE 84; RESP 18; O2SAT 92
--- NOTE | 2017-02-10 17:44 | RADRPT ---
EXAM DATE/TIME: 02/10/2017 16:52 [facility] COMPARISON: No previous studies available for comparison. INDICATIONS : Abdominal pain. IV CONTRAST: 95 cc Omnipaque 350 (iohexol) IV ORAL CONTRAST: No oral contrast ingested. RADIATION DOSE: 25.41 CTDIvol (mGy) ; Patient body habitus MEDICAL HISTORY : Cerebrovascular disease. Gastroesophageal reflux disease. Diverticulitis. Hyper tension. Prostate cancer. SURGICAL HISTORY : Craniotomy. Cholecystectomy. Colectomy. ENCOUNTER: Initial ACUITY: 1 month PAIN SCALE: 4/10 LOCATION: Upper quadrant TECHNIQUE: Volumetric scanning of the abdomen and pelvis was performed. Using automated exposure control and adjustment of the mA and/or kV according to patient size, radiation dose was kept as low as reasonably achievable to obtain optimal diagnostic quality images. DICOM format image data is av ailable electronically for review and comparison. FINDINGS: CT scan abdomen and pelvis was performed with IV contrast. There is significant free f luid throughout the abdomen and the pelvis. The liver has a very nodular appearance suggesting cirrho sis. The spleen is normal in size. There is a large cyst upper pole left kidney. The rest of the left kidney is unremarkable. The right kidney is unremarkable. The adrenal glands are normal. Pancreas is unremarkable. Moderate stool throughout the colon. No free air is identified. The patient is osteopenic. There has been previous prostate seed placement. Portal vein is patent. CONCLUSION: Cirrhotic appearing liver with a significant amount of free fluid throughout the abdo men and the pelvis. Large left renal cyst. Cholecystectomy clips. Gera Lopez MD on February 10, 2017 at 17:34 Board Certified Radiologist. This report was verified electronically.
[2017-02-10] MEDS ORDERED: BUMETANIDE 1 MG TAB PO ONE (18:45)
[2017-02-10 19:10] VITALS: BP 135/60
== END 2017-02-10 19:35 | disposition home or self-care (01) ==
LOC: PHED 14:27
DX: R18.8 Other ascites (principal); R22.43 Localized swelling, mass and lump, lower limb, bilateral; I10 Essential (primary) hypertension; E78.00 Pure hypercholesterolemia, unspecified; G47.30 Sleep apnea, unspecified; I25.2 Old myocardial infarction; Z87.39 Personal history of other diseases of the musculoskeletal system and connective tissue; Z86.79 Personal history of other diseases of the circulatory system; Z87.19 Personal history of other diseases of the digestive system; Z87.448 Personal history of other diseases of urinary system; Z86.69 Personal history of other diseases of the nervous system and sense organs
CPT/HCPCS: 71010; 74177; 80053; 83690; 85025; 99285; Q9967

== ENCOUNTER 2017-02-20 17:43 | Observation (INO) | payer MEDICARE, OTHER ==
[~2017-02-20] VITALS: Ht 177.8 cm; Wt 110.0 kg
[~2017-02-20 17:43] MED LIST changes: +BUME2TAB PO; +COEN1CAP PO; +COLA100C PO; -COLA100C3 PO; -COQ-100C2 PO; +FERR200T PO; -FERR65TA PO; -FURO80TA PO; +HYDR-3799 PO; -HYDR25TA35 PO; -LEVA500T PO; -MIRA33504 PO; -MUCI600T PO; -PRED5TAB PO; -PROM6.256 PO; -SUPETAB20 PO; -VENTAER INH
[2017-02-20 17:50] VITALS: BP 131/49; PULSE 59; RESP 16; TEMP 97.9; O2SAT 95
[2017-02-20] MEDS ORDERED: POLY17PO3 (17:57)
[2017-02-20] MEDS ORDERED: LORA1TAB12 PO (17:57)
[2017-02-20] MEDS ORDERED: METO5TAB3 PO (17:57)
[2017-02-20] MEDS ORDERED: FURO80TA PO (17:57)
[2017-02-20] MEDS ORDERED: VITA150T (17:57)
[2017-02-20 18:00] VITALS: RESP 18; O2SAT 97
[2017-02-20] MEDS ORDERED: SODIUM CHLORIDE 0.9% FLUSH 10 ML FLUSH IV FLUSH PRN ×2 (18:15→19:30)
--- NOTE | 2017-02-20 18:28 | PD ---
HPI Chief Complaint: Abdominal Pain Time Seen by Provider: 17:58 Travel History International Travel<30 days: No Contact w/Intl Traveler<30days: No Traveled to known affect area: No History of Present Illness HPI 77-year-old male complains of abdominal pain and abdominal distention. Patient has history intermittent abdominal pain and abdominal distention for the past several weeks. Patient was seen in emergency room 10 days ago for the same problem. CT scan abdomen pelvis at that time showed liver cirrhosis with large amount of ascites. Patient was discharged home with instruction to increase Bumex to 4 mg twice a day for 4 days and after that continue with Bumex as regular dosage. Patient was seen by personal physician and has an appointment with Dr. Zheng, GI specialist on March 04. Patient states that he has intermittent abdominal pain with persistent abdominal distention since then. Patient denies any headache. Patient denies any chest pain or shortness of breath. Patient states the pain in cramping pain sharp pain diffuse over the abdomen mostly on the upper abdomen and right low quadrant of the abdomen. Patient denies any pain radiation. Patient denies any fever chills. Patient denies any nausea vomiting diarrhea. Patient complains of generalized malaise and weakness. Patient denies any dysuria or frequency. Patient denies any abdominal pain now. 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) Asthma: No Autoimmune Disease: No Blood Disorders: No Anxiety: No Depression: No Heart Rhythm Problems: No Cancer: Yes (prostate cancer in 1999 with seed implants) Cardiovascular Problems: Yes (with stroke) High Cholesterol: Yes Chemotherapy: No Chest Pain: No Congestive Heart Failure: No COPD: No Cerebrovascular Accident: Yes (2008; L SIDED DEFICIT) Diabetes: No Diminished Hearing: No Endocrine: No Gastrointestinal Disorders: Yes GERD: Yes Genitourinary: Yes Headaches: No Hepatitis: No Hiatal Hernia: No Hypertension: Yes Immune Disorder: No Kidney Stones: No Musculoskeletal: Yes (brace on knee from stroke in 2008) Neurologic: Yes Psychiatric: No Reproductive: No Respiratory: Yes Migraines: No Myocardial Infarction: Yes Radiation Therapy: No Renal Failure: No Seizures: Yes Sleep Apnea: Yes Thyroid Disease: No Ulcer: Yes Influenza Vaccination: Yes PNEUMOCCOCAL Vaccine (Year): 2009 Past Surgical History Abdominal Surgery: Yes (diverticulitis ) AICD: No Appendectomy: No Arteriovenous Shunt: No Cardiac Surgery: No Cholecystectomy: Yes Ear Surgery: No Endocrine Surgery: No Eye Surgery: No Genitourinary Surgery: No Gynecologic Surgery: No Insulin Pump: No Joint Replacement: No Neurologic Surgery: Yes (brain 10/08/09 stroke) Oral Surgery: No Pacemaker: No Thoracic Surgery: No Other Surgery: Yes Social History Alcohol Use: Yes (SOCIALLY) Tobacco Use: No Substance Use: No Allergies-Medications (Allergen,Severity, Reaction): Coded Allergies: *MDRO Multi-Drug Resistant Organism (Verified Adverse Reaction, Unknown, ) MRSA Sputum 2008. MRSA PCR Screens negative 06/27/15 and 06/29/15 CLEARED PER INFECTION CONTROL Reported Meds & Prescriptions Reported Meds & Active Scripts Active Oxygen tank (Oxygen) 1 Ea Tank 2 Liter [employer] CONTINUOUS Oxygen Concentrator Portable Gaseous 2 L/min via Nasal Cannula Continuous For 99 months Reported Super B Complex (Vitamin B Complex Vit C No.4) 150 Mg Tablet Miralax (Polyethylene Glycol 3350) 17 Gm Powd.pack Metolazone 5 Mg Tab 5 Mg PO DAILY Lorazepam 1 Mg Tab 1 Mg PO HS PRN Furosemide 80 Mg Tab 80 Mg PO DAILY Hydralazine HCl 25 Mg Tablet 25 Mg PO QID Feosol (Ferrous Sulfate) 200 Mg Tab 65 Mg PO DAILY Colace (Docusate Sodium) 100 Mg Capsule 1 Tab PO DAILY Co Q-10 (Coenzyme Q10 (Ubidecarenone)) 100 Mg Cap 1 Tab PO DAILY Bumetanide 2 Mg Tab 4 Mg PO DAILY Minoxidil 10 Mg Tab 30 Mg PO HS Fluoxetine (Fluoxetine HCl) 40 Mg Cap 40 Cap PO HS Potassium Chloride Microencaps 20 Meq Tab 20 Meq PO DAILY Minoxidil 10 Mg Tab 20 Mg PO DAILY AT 12NOON Keppra (Levetiracetam) 250 Mg Tab 500 Mg PO BID Levothyroxine (Levothyroxine Sodium) 150 Mcg Tab 150 Mcg PO DAILY Lamictal (Lamotrigine) 100 Mg Tab 300 Mg PO BID Carvedilol 25 Mg Tab 50 Mg PO BID Aspirin 81 (Aspirin) 81 Mg Tabdr 81 Mg PO EVERY 3 DAYS Review of Systems General / Constitutional: No: Fever Eyes: No: Visual changes HENT: No: Headaches Cardiovascular: No: Chest Pain or Discomfort Respiratory: No: Shortness of Breath Gastrointestinal: Positive: Abdominal Pain Genitourinary: No: Dysuria Musculoskeletal: No: Pain Skin: No Rash Neurologic: No: Weakness Psychiatric: No: Depression Endocrine: No: Polydipsia Hematologic/Lymphatic: No: Easy Bruising Physical Exam Narrative GENERAL: Well-nourished, well-developed patient. SKIN: Focused skin assessment warm/dry. HEAD: Normocephalic. EYES: No scleral icterus. No injection or drainage. NECK: Supple, trachea midline. No JVD or lymphadenopathy. CARDIOVASCULAR: Regular rate and rhythm without murmurs, gallops, or rubs. RESPIRATORY: Breath sounds equal bilaterally. No accessory muscle use. GASTROINTESTINAL: Abdomen distended. Patient has mild diffuse tenderness over the abdomen. No rebound tenderness. MUSCULOSKELETAL: No cyanosis, or edema. BACK: Nontender without obvious deformity. No CVA tenderness. Neurologic exam: Patient is awake and alert oriented 3. No obvious focal neurological deficit. Data Data Last Documented VS Vital Signs Date Time Temp Pulse Resp B/P Pulse Ox O2 Delivery O2 Flow Rate FiO2 02/20/17 19:14 98.0 57 18 151/60 95 Nasal Cannula 3 Orders Complete Blood Count With Diff (02/20/17 18:12) Comprehensive Metabolic Panel (02/20/17 18:12) Lipase (02/20/17 18:12) Prothrombin Time / Inr (Pt) (02/20/17 18:12) Act Partial Throm Time (Ptt) (02/20/17 18:12) Urinalysis - C+S If Indicated (02/20/17 18:12) Ct Abd/Pel W/O Iv Contrast (02/20/17 18:12) Iv Access Insert/Monitor (02/20/17 18:12) Ecg Monitoring (02/20/17 18:12) Oximetry (02/20/17 18:12) Sodium Chloride 0.9% Flush (Ns Flush) (02/20/17 18:15) Chest, Single Ap (02/20/17 18:12) Potassium Chloride (Kcl) (02/20/17 19:15) Labs Laboratory Tests Test 02/20/17 02/20/17 18:30 18:35 White Blood Count 6.6 TH/MM3 Red Blood Count 3.38 MIL/MM3 Hemoglobin 11.4 GM/DL Hematocrit 33.6 % Mean Corpuscular Volume 99.4 FL Mean Corpuscular Hemoglobin 33.9 PG Mean Corpuscular Hemoglobin 33.0 % Concent Red Cell Distribution Width 14.3 % Platelet Count 73 TH/MM3 Mean Platelet Volume 8.7 FL Neutrophils (%) (Auto) 77.9 % Lymphocytes (%) (Auto) 10.2 % Monocytes (%) (Auto) 7.3 % Eosinophils (%) (Auto) 3.3 % Basophils (%) (Auto) 1.3 % Neutrophils # (Auto) 4.9 TH/MM3 Lymphocytes # (Auto) 0.7 TH/MM3 Monocytes # (Auto) 0.5 TH/MM3 Eosinophils # (Auto) 0.2 TH/MM3 Basophils # (Auto) 0.1 TH/MM3 CBC Comment AUTO DIFF Differential Comment AUTO DIFF CONFIRMED Platelet Estimate LOW Platelet Morphology Comment NORMAL Red Cell Morphology Comment NORMAL Prothrombin Time 12.5 SEC Prothromb Time International 1.1 RATIO Ratio Activated Partial 24.3 SEC Thromboplast Time Sodium Level 140 MEQ/L Potassium Level 3.1 MEQ/L Chloride Level 96 MEQ/L Carbon Dioxide Level 35.9 MEQ/L Anion Gap 8 MEQ/L Blood Urea Nitrogen 36 MG/DL Creatinine 1.40 MG/DL Estimat Glomerular Filtration 49 ML/MIN Rate Random Glucose 99 MG/DL Calcium Level 9.9 MG/DL Total Bilirubin 0.9 MG/DL Aspartate Amino Transf 24 U/L (AST/SGOT) Alanine Aminotransferase 14 U/L (ALT/SGPT) Alkaline Phosphatase 148 U/L Total Protein 7.3 GM/DL Albumin 3.7 GM/DL Lipase 133 U/L Urine Color YELLOW Urine Turbidity CLEAR Urine pH 5.5 Urine Specific [place] 1.009 Urine Protein NEG mg/dL Urine Glucose (UA) NEG mg/dL Urine Ketones NEG mg/dL Urine Occult Blood NEG Urine Nitrite NEG Urine Bilirubin NEG Urine Leukocyte Esterase NEG Urine RBC 0-3 /hpf Urine WBC 0-2 /hpf Urine Squamous Epithelial 0-5 /hpf Cells Urine Bacteria RARE /hpf Urine Hyaline Casts 0-2 /lpf Microscopic Urinalysis Comment CULT NOT INDICATED MDM Medical Decision Making Medical Screen Exam Complete: Yes Emergency Medical Condition: Yes Interpretation(s) 1903 p.m. CBC within normal limit. Platelet 73. Potassium 3.1. Bicarbonate 35.9. BUN 36. Creatinine 1.4. Alkaline phosphatase 148. INR 1.1. UA is negative. 19 11 PM. Last Impressions Chest X-Ray 02/20/171811 Signed Impressions: Service Date/Time: Monday, February 20, 2017 18:26 - CONCLUSION: Basilar atelectasis. Trace pleural fluid. Cardiomegaly. No pneumothorax. Jesus Munguia MD Abdomen/Pelvis CT 02/20/171811 Signed Impressions: Service Date/Time: Monday, February 20, 2017 18:31 - CONCLUSION: 1. There is liver cirrhosis with moderate ascites. Mild to moderate anasarca. 2. Trace pleural fluid with basilar atelectasis. 3. Cardiomegaly. Large left renal cyst. 4. Small pericardial effusion. Jesus Munguia MD Differential Diagnosis Differential diagnosis including recurrent abdominal pain with ascites, gastritis, PUD, pancreatitis, cholecystitis, colitis, UTI, pyelonephritis, nephrolithiasis, dehydration, electrolyte imbalance. Narrative Course 77-year-old male with abdominal distention and abdominal pain. History of liver cirrhosis with ascites. KCl 40 mEq by mouth given. Diagnosis Primary Impression: Abdominal pain Qualified Code: R10.9 - Abdominal pain, unspecified location Additional Impressions: Ascites Qualified Code: R18.8 - Other ascites Hypokalemia Thrombocytopenia Renal insufficiency Admitting Information Admitting Physician Requests: Observation Jerome Moeller MD Feb 20, 2017 18:28
[2017-02-20 18:45] LABS: AUTOMATED NEUTROPHIL # 4.9 TH/MM3 (1.8-7.7); BASOPHIL # 0.1 TH/MM3 (0-0.2); BASOPHIL % 1.3 % (0.0-2.0); EOSINOPHIL # 0.2 TH/MM3 (0-0.4); EOSINOPHIL % 3.3 % (0.0-4.0); LYMPH % 10.2 % (9.0-44.0); LYMPHOCYTE # 0.7 TH/MM3 (1.0-4.8); MONO % 7.3 % (0.0-8.0); NEUT % 77.9 % (16.0-70.0); RED CELL DISTRIBUTION WIDTH 14.3 % (11.6-17.2)
[2017-02-20 18:46] LABS: BLOOD, URINE NEG (NEG); GLUCOSE,URINE NEG (NEG); KETONE, URINE NEG (NEG); NITRITE,URINE NEG (NEG); PH, URINE 5.5 (5.0-8.5)
[2017-02-20 18:46] LABS: CHLORIDE 96 MEQ/L (98-107); POTASSIUM 3.1 MEQ/L (3.5-5.1); SODIUM (NA) 140 MEQ/L (136-145)
[2017-02-20 18:48] LABS: HEMATOCRIT 33.6 % (39.0-51.0); HEMO FLAGS AUTO DIFF; MEAN CELL VOLUME 99.4 FL (80.0-100.0); MEAN CORPUSCULAR HEMOGLOBIN 33.9 PG (27.0-34.0); PLATELET COUNT 73 TH/MM3 (150-450); RED BLOOD COUNT 3.38 MIL/MM3 (4.50-5.90); WHITE BLOOD COUNT 6.6 TH/MM3 (4.0-11.0)
[2017-02-20 18:50] LABS: ANION GAP 8 MEQ/L (5-15); BICARBONATE 35.9 MEQ/L (21.0-32.0); BLOOD UREA NITROGEN 36 MG/DL (7-18)
[2017-02-20 18:52] LABS: APTT (PATIENT) 24.3 SEC (24.3-30.1); INTERNATIONAL NORMALIZED RATIO 1.1 RATIO; PROTHROMBIN TIME - PATIENT 12.5 SEC (9.8-11.6)
[2017-02-20 18:53] LABS: URINE COLOR YELLOW (YELLW/STRAW)
[2017-02-20 18:53] LABS: ALT (GPT) 14 U/L (12-78); AST (GOT) 24 U/L (15-37); GLOMERULAR FILTRATION RATE 49 ML/MIN (>89)
[2017-02-20 18:54] LABS: BACTERIA, URINE RARE /hpf; COMMENT (UR) CULT NOT INDICATED; CULTURE IF INDICATED CULT NOT INDICATED; HYALINE CAST, URINE 0-2 /lpf (RARE); RBC, URINE 0-3 /hpf (0-3); SQUAMOUS EPITHELIAL CELL URINE 0-5 /hpf (0-5); WBC, URINE 0-2 /hpf (0-5)
[2017-02-20 18:56] LABS: ALKALINE PHOSPHATASE 148 U/L (45-117)
--- NOTE | 2017-02-20 18:58 | RADRPT ---
EXAM DATE/TIME: 02/20/2017 18:26 [facility] COMPARISON: CHEST SINGLE AP, February 10, 2017, 15:31. INDICATIONS : Shortness of breath. MEDICAL HISTORY : Hypertension. Carcinoma, prostatic. Cerebrovascular disease. Gastroesophag eal reflux disease. Diverticulitis SURGICAL HISTORY : Craniotomy. Cholecystectomy. Colectomy ENCOUNTER: Initial ACUITY: 1 day PAIN SCORE: 6/10 LOCATION: Bilateral chest FINDINGS: Heart size enlarged. Bibasilar airspace disease most characteristic of atelectasis. Trace pleural flu id. No pneumothorax. CONCLUSION: Basilar atelectasis. Trace pleural fluid. Cardiomegaly. No pneumothorax. Jesus Munguia MD on February 20, 2017 at 18:53 Board Certified Radiologist. This report was verified electronically.
[2017-02-20 19:00] LABS: TOTAL BILIRUBIN ADULT 0.9 MG/DL (0.2-1.0)
--- NOTE | 2017-02-20 19:04 | RADRPT ---
EXAM DATE/TIME: 02/20/2017 18:31 [facility] COMPARISON: No previous studies available for comparison. INDICATIONS : Diffuse abdominal pain. ORAL CONTRAST: No oral contrast ingested. RADIATION DOSE: 21.48 CTDIvol (mGy) MEDICAL HISTORY : Gastroesophageal reflux disease. Carcinoma, prostate. Myocardial infarction.Hypertension. Seizures. Stroke. SURGICAL HISTORY : Cholecystectomy. Colon resection.Craniotomy. ENCOUNTER: Initial ACUITY: 1 day PAIN SCALE: 5/10 LOCATION: Diffuse abdomen TECHNIQUE: Volumetric scanning of the abdomen and pelvis was performed. Using automated exposure control and ad justment of the mA and/or kV according to patient size, radiation dose was kept as low as reasonably achievable to obtain optimal diagnostic quality images. DICOM format image data is available electro nically for review and comparison. FINDINGS: There are small bilateral pleural effusions. Basal atelectasis present. Findings are characteristic of liver cirrhosis with moderate ascites. Spleen is normal in size. Adren als and pancreas unremarkable. Large exophytic cyst left kidney measuring up to about 12 cm in diamet er and displacing the kidney anteriorly. Right kidney unremarkable. No hydronephrosis. No bowel obstruction. No free air. Mild constipation. Colonic diverticula without evidence for divert iculitis. Radiation seed implants in the prostate. Bones are osteopenic. No acute bony abnormalities. CONCLUSION: 1. There is liver cirrhosis with moderate ascites. Mild to moderate anasarca. 2. Trace pleural fluid with basilar atelectasis. 3. Cardiomegaly. Large left renal cyst. 4. Small pericardial effusion. Jesus Munguia MD on February 20, 2017 at 18:57 Board Certified Radiologist. This report was verified electronically.
[2017-02-20 19:09] LABS: PLATELET ESTIMATE SMEAR LOW (NORMAL); PLATELET MORPHOLOGY NORMAL (NORMAL); SCAN/DIFF AUTO DIFF CONFIRMED
[2017-02-20 19:14] VITALS: BP 151/60; PULSE 57; RESP 18; TEMP 98; O2SAT 95
[2017-02-20] MEDS ORDERED: POTASSIUM CHLORIDE 20 MEQ CONTROLLED RELEASE TAB PO ONE (19:15)
[2017-02-20] MEDS ORDERED: MAGNESIUM HYDROXIDE SUSP 30 ML CUP PO PRN (19:30)
[2017-02-20] MEDS ORDERED: BISACODYL 10 MG SUPP RECTAL PRN (19:30)
[2017-02-20] MEDS ORDERED: SENNOSIDES 8.6 MG TAB PO PRN (19:30)
[2017-02-20] MEDS ORDERED: ACETAMINOPHEN 325 MG TAB PO PRN (19:30)
[2017-02-20] MEDS ORDERED: ONDANSETRON HCL 4 MG/2 ML VIAL IVP PRN (19:30)
[2017-02-20] MEDS ORDERED: LACTULOSE SYRUP 20 GM/30 ML CUP PO PRN (19:30)
[2017-02-20 21:00] VITALS: BP 154/67; PULSE 64; RESP 18; O2SAT 95
[2017-02-20] MEDS: DOCUSATE SODIUM 50 MG/SENNA 8.6 MG TAB PO SCH (21:50)
[2017-02-20] MEDS: SODIUM CHLORIDE 0.9% FLUSH 10 ML FLUSH IV FLUSH SCH (21:50)
[2017-02-20 21:59] VITALS: BP 156/66; PULSE 65; RESP 18; O2SAT 95
[2017-02-20 22:40] VITALS: BP 134/61; PULSE 55; RESP 18; TEMP 98.5; O2SAT 93
[2017-02-21] VITALS (8 sets, daily range): BP systolic 121–137; BP diastolic 41–62; PULSE 52–65; RESP 16–19; TEMP 97.6–99.1; O2SAT 92–95
[2017-02-21] MEDS ORDERED: LORazepam 1 MG TAB PO PRN (08:15)
[2017-02-21] MEDS: CARVEDILOL 12.5 MG TAB PO SCH ×2 (08:50→22:50)
[2017-02-21] MEDS ORDERED: CARVEDILOL 12.5 MG TAB PO SCH (09:00)
[2017-02-21] MEDS ORDERED: METOLAZONE 5 MG TAB PO SCH (09:00)
[2017-02-21] MEDS ORDERED: BUMETANIDE INJ 1 MG/4 ML VIAL IV PUSH SCH (09:00)
[2017-02-21] MEDS ORDERED: POTASSIUM CHLORIDE 20 MEQ CONTROLLED RELEASE TAB PO SCH (09:00)
[2017-02-21] MEDS: LEVOTHYROXINE SODIUM 150 MCG TAB PO SCH (09:53)
[2017-02-21] MEDS: DOCUSATE SODIUM 50 MG/SENNA 8.6 MG TAB PO SCH ×2 (09:53→22:49)
[2017-02-21] MEDS: hydrALAZINE HCL 25 MG TAB PO SCH ×4 (09:53→22:49)
[2017-02-21] MEDS: FERROUS SULFATE 325 MG (65 MG ELEMENTAL IRON) TAB PO SCH (09:54)
[2017-02-21] MEDS: levETIRAcetam 500 MG TAB PO SCH ×2 (09:55→22:49)
[2017-02-21] MEDS: SODIUM CHLORIDE 0.9% FLUSH 10 ML FLUSH IV FLUSH SCH ×2 (09:55→21:00)
[2017-02-21] MEDS: lamoTRIgine 100 MG TAB PO SCH ×2 (09:55→22:49)
[2017-02-21] MEDS ORDERED: MINOXIDIL 10 MG TAB PO SCH ×2 (12:00→21:00)
--- NOTE | 2017-02-21 12:57 | HHI.HP ---
HPI [facility] Primary Care Physician Brigid Maciel MD Admission Diagnosis abdominal pain. ascites. Hypokalemia. Renal insufficiency. Diagnoses: Chief Complaint: Abdominal distention Travel History International Travel<30 Days: No Contact w/Intl Traveler <30 Da: No Traveled to Known Affected Are: No History of Present Illness Written by David Fernández, acting as scribe for Dr. Alejandre on 02/21/17 at 12:45. This note was transcribed by scribe HARIS Carrera. I, Dr. Dilip Alejandre personally performed the history, physical exam, and medical decision making; and confirmed the accuracy of the information in the transcribed note. Authenticated by Dr. Dilip Alejandre on 02/21/17 at 18:02. 77-year-old male with past medical history of HTN, hypothyroidism, CVA, seizure disorder, cirrhosis who presented for abdominal distention. The patient has been having abdominal distention for quite some time. His PCP has been managing it with diuretics. The past 4 days she's been having worsening abdominal discomfort from the distention. He states in the past the swelling would come and go, but now it seems to be persisting. He denies any fever, chills, nausea, vomiting, shortness of breath, diarrhea, constipation, dysuria. He has been having problems swallowing recently. Admitted for paracentesis. The patient is unsure what the cirrhosis is from, but has been told it is not from alcohol. 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 Has chronic lower extremity edema and wears REGLA hose. Wheelchair- bound at baseline. Review of Systems Except as stated in HPI: all other systems reviewed are Neg Past Family Social History Past Medical History Hypertension Hypothyroidism History of prostate cancer History of hemorrhagic CVA with residual left-sided weakness History of seizure disorder after CVA Cirrhosis Past Surgical History Cholecystectomy Craniotomy Partial colectomy for ruptured diverticula Hernia repair Back surgery Reported Medications Oxygen tank (Oxygen) 1 Ea Tank 2 Liter [employer]IR[employer] CONTINUOUS Oxygen Concentrator Portable Gaseous 2 L/min via Nasal Cannula Continuous For 99 months Super B Complex (Vitamin B Complex Vit C No.4) 150 Mg Tablet Miralax (Polyethylene Glycol 3350) 17 Gm Powd.pack Metolazone 5 Mg Tab 5 Mg PO DAILY Lorazepam 1 Mg Tab 1 Mg PO HS PRN Furosemide 80 Mg Tab 80 Mg PO DAILY Hydralazine HCl 25 Mg Tablet 25 Mg PO QID Feosol (Ferrous Sulfate) 200 Mg Tab 65 Mg PO DAILY Colace (Docusate Sodium) 100 Mg Capsule 1 Tab PO DAILY Co Q-10 (Coenzyme Q10 (Ubidecarenone)) 100 Mg Cap 1 Tab PO DAILY Bumetanide 2 Mg Tab 4 Mg PO DAILY Minoxidil 10 Mg Tab 30 Mg PO HS Fluoxetine (Fluoxetine HCl) 40 Mg Cap 40 Cap PO HS Potassium Chloride Microencaps 20 Meq Tab 20 Meq PO DAILY Minoxidil 10 Mg Tab 20 Mg PO DAILY AT 12NOON Keppra (Levetiracetam) 250 Mg Tab 500 Mg PO BID Levothyroxine (Levothyroxine Sodium) 150 Mcg Tab 150 Mcg PO DAILY Lamictal (Lamotrigine) 100 Mg Tab 300 Mg PO BID Carvedilol 25 Mg Tab 50 Mg PO BID Aspirin 81 (Aspirin) 81 Mg Tabdr 81 Mg PO EVERY 3 DAYS Allergies: Coded Allergies: *MDRO Multi-Drug Resistant Organism (Verified Adverse Reaction, Unknown, ) MRSA Sputum 2008. MRSA PCR Screens negative 06/27/15 and 06/29/15 CLEARED PER INFECTION CONTROL Active Ordered Medications Current Medications Medications (Trade) Dose Ordered Sig/Matteo Route Start Time Stop Time Status Last Admin (NS Flush) 2 ml UNSCH PRN IV FLUSH 02/20/17 18:15 (NS Flush) 2 ml UNSCH PRN IV FLUSH 02/20/17 19:30 (NS Flush) 2 ml BID IV FLUSH 02/20/17 21:00 02/21/17 09:55 (Zofran Inj) 4 mg Q6H PRN IVP 02/20/17 19:30 (Tylenol) 650 mg Q6H PRN PO 02/20/17 19:30 (Roxicodone) 10 mg Q4H PRN PO 02/20/17 19:30 (Roxicodone) 5 mg Q4H PRN PO 02/20/17 19:30 (Daysi-Colace) 1 tab BID PO 02/20/17 21:00 02/21/17 09:53 (Milk Of Magnesia Liq) 30 ml Q12H PRN PO 02/20/17 19:30 (Senokot) 17.2 mg Q12H PRN PO 02/20/17 19:30 (Dulcolax Supp) 10 mg DAILY PRN RECTAL 02/20/17 19:30 (Lactulose Liq) 30 ml DAILY PRN PO 02/20/17 19:30 (Ferrous Sulfate) 65 mg DAILY PO 02/21/17 09:00 02/21/17 09:54 (PROzac) 40 mg HS PO 02/21/17 21:00 (Apresoline) 25 mg QID PO 02/21/17 09:00 02/21/17 09:53 (LaMICtal) 300 mg BID PO 02/21/17 09:00 02/21/17 09:55 (Keppra) 500 mg BID PO 02/21/17 09:00 02/21/17 09:55 (Synthroid) 150 mcg DAILY PO 02/21/17 09:00 02/21/17 09:53 (Ativan) 1 mg HS PRN PO 02/21/17 08:15 (Zaroxolyn) 5 mg DAILY PO 02/21/17 09:00 Hold (Loniten) 20 mg DAILY@1200 PO 02/21/17 12:00 (Loniten) 30 mg HS PO 02/21/17 21:00 (Bumex Inj) 1 mg BID@09,18 IV PUSH 02/21/17 09:00 02/21/17 09:55 (Coreg) 25 mg BID PO 02/21/17 09:00 (KCl Powder) 20 meq Q12HR PO 02/21/17 11:00 (Aldactone) 50 mg BID@09,18 PO 02/21/17 18:00 Family History Mother had heart disease Social History Occasional alcohol use in the past, no history of alcohol abuse, no alcohol use currently Denies any tobacco use Physical Exam Vital Signs Vital Signs Date Time Temp Pulse Resp B/P Pulse Ox O2 Delivery O2 Flow Rate FiO2 02/21/17 12:52 99.1 60 18 124/55 95 02/21/17 08:02 98.1 56 18 135/62 95 02/21/17 03:52 99.0 55 18 130/59 94 02/21/17 02:09 98.5 52 19 121/57 92 02/20/17 22:40 98.5 55 18 134/61 93 02/20/17 22:00 66 18 95 Nasal Cannula 3 02/20/17 21:59 65 18 156/66 95 Nasal Cannula 3 02/20/17 21:00 64 18 154/67 95 Nasal Cannula 3 02/20/17 19:14 98.0 57 18 151/60 95 Nasal Cannula 3 02/20/17 18:00 18 97 Nasal Cannula 2 02/20/17 17:50 97.9 59 16 131/49 95 Physical Exam GENERAL: Well-developed well-nourished. In no acute distress. SKIN: Warm and dry. No lesions noted. HEENT: Normocephalic. Pupils equal and round. Mucous membranes pink and moist. CARDIOVASCULAR: Regular rate and rhythm. No murmur appreciated. RESPIRATORY: No accessory muscle use. Clear to auscultation. Breath sounds equal bilaterally. GASTROINTESTINAL: Abdomen soft, non-tender, moderately distended. Bowel sounds x4. MUSCULOSKELETAL: No obvious deformities. No clubbing or cyanosis. 4+ lower extremity pitting edema, chronic per patient. NEUROLOGICAL: Awake and alert. Chronic left-sided weakness. Normal speech. PSYCHIATRIC: Appropriate mood and affect; insight and judgment normal. Laboratory Laboratory Tests Test 02/20/17 02/20/17 18:30 18:35 White Blood Count 6.6 Red Blood Count 3.38 Hemoglobin 11.4 Hematocrit 33.6 Mean Corpuscular Volume 99.4 Mean Corpuscular Hemoglobin 33.9 Mean Corpuscular Hemoglobin 33.0 Concent Red Cell Distribution Width 14.3 Platelet Count 73 Mean Platelet Volume 8.7 Neutrophils (%) (Auto) 77.9 Lymphocytes (%) (Auto) 10.2 Monocytes (%) (Auto) 7.3 Eosinophils (%) (Auto) 3.3 Basophils (%) (Auto) 1.3 Neutrophils # (Auto) 4.9 Lymphocytes # (Auto) 0.7 Monocytes # (Auto) 0.5 Eosinophils # (Auto) 0.2 Basophils # (Auto) 0.1 CBC Comment AUTO DIFF Differential Comment AUTO DIFF CONFIRMED Platelet Estimate LOW Platelet Morphology Comment NORMAL Red Cell Morphology Comment NORMAL Prothrombin Time 12.5 Prothromb Time International 1.1 Ratio Activated Partial 24.3 Thromboplast Time Sodium Level 140 Potassium Level 3.1 Chloride Level 96 Carbon Dioxide Level 35.9 Anion Gap 8 Blood Urea Nitrogen 36 Creatinine 1.40 Estimat Glomerular Filtration 49 Rate Random Glucose 99 Calcium Level 9.9 Total Bilirubin 0.9 Aspartate Amino Transf 24 (AST/SGOT) Alanine Aminotransferase 14 (ALT/SGPT) Alkaline Phosphatase 148 Total Protein 7.3 Albumin 3.7 Lipase 133 Urine Color YELLOW Urine Turbidity CLEAR Urine pH 5.5 Urine Specific [place] 1.009 Urine Protein NEG Urine Glucose (UA) NEG Urine Ketones NEG Urine Occult Blood NEG Urine Nitrite NEG Urine Bilirubin NEG Urine Leukocyte Esterase NEG Urine RBC 0-3 Urine WBC 0-2 Urine Squamous Epithelial 0-5 Cells Urine Bacteria RARE Urine Hyaline Casts 0-2 Microscopic Urinalysis Comment CULT NOT INDICATED Date/Time Procedure Status Source Growth 02/20/17 20:00 Influenza Types A,B Antigen ([facility]) - Final Complete Nasal Washing NEGATIVE FOR FLU A AND B ANTIGEN.... Result Diagram: 02/20/170 02/20/171829 Imaging Last Impressions Chest X-Ray 02/20/171811 Signed Impressions: Service Date/Time: Monday, February 20, 2017 18:26 - CONCLUSION: Basilar atelectasis. Trace pleural fluid. Cardiomegaly. No pneumothorax. Jesus Munguia MD Abdomen/Pelvis CT 02/20/171811 Signed Impressions: Service Date/Time: Monday, February 20, 2017 18:31 - CONCLUSION: 1. There is liver cirrhosis with moderate ascites. Mild to moderate anasarca. 2. Trace pleural fluid with basilar atelectasis. 3. Cardiomegaly. Large left renal cyst. 4. Small pericardial effusion. Jesus Munguia MD Assessment and Plan Assessment and Plan 77-year-old male with past medical history of HTN, hypothyroidism, CVA, seizure disorder, cirrhosis who presented for abdominal distention Cirrhosis with ascites: Reviewed: Abdominal CT shows liver cirrhosis with moderate ascites. Hepatitis panel negative on 08/19/16. Afebrile with no leukocytosis. LFTs showed only minimal elevation of alkaline phosphatase. INR 1.1. -Adjust diuretics; hold metolazone, change Bumex/Lasix to oral torsemide, start spironolactone 100mg Qday. -IR consulted for diagnostic and therapeutic paracentesis -Continue outpatient follow-up with GI for further workup History of malignant hypertension: BP is currently well controlled. Decrease home carvedilol dose with bradycardia. Continue hydralazine and minoxidil, consider adjusting therapy. -Continue to monitor especially diuretic adjustment as above. TRACY: Creatinine 1.4; previously 1.3 on 02/10 and 0.82 on 08/21. Suspect secondary to overdiuresis. Caution with diuretics. Monitor renal function. Hypokalemia: Potassium 3.1, likely secondary to diuresis. Replace potassium orally. Check magnesium. Follow-up electrolytes. Dysphagia: Mechanical soft diet. Speech therapy eval. History of seizure disorder: Has 12 seizures per year on current AED regimen. Continue home Keppra and Lamictal. DVT prophylaxis: SCDs Discussed Condition With Patient with at bedside, David Hale Feb 21, 2017 12:57 Harper Alejandre DO Feb 21, 2017 18:04
[2017-02-21] MEDS: POTASSIUM CHLORIDE 20 MEQ PWD PACKET PO SCH ×2 (13:21→21:00)
[2017-02-21 14:43] LABS: AUTOMATED NEUTROPHIL # 5.1 TH/MM3 (1.8-7.7); BASOPHIL % 0.6 % (0.0-2.0); EOSINOPHIL # 0.2 TH/MM3 (0-0.4); EOSINOPHIL % 2.5 % (0.0-4.0); HEMATOCRIT 30.3 % (39.0-51.0); LYMPH % 10.4 % (9.0-44.0); LYMPHOCYTE # 0.7 TH/MM3 (1.0-4.8); MEAN CELL VOLUME 97.8 FL (80.0-100.0); MEAN CORPUSCULAR HEMOGLOBIN 35.1 PG (27.0-34.0); MEAN CORPUSCULAR HGB CONC 35.9 % (32.0-36.0); MONO % 7.8 % (0.0-8.0); NEUT % 78.7 % (16.0-70.0); PLATELET COUNT 64 TH/MM3 (150-450); RED CELL DISTRIBUTION WIDTH 14.2 % (11.6-17.2); WHITE BLOOD COUNT 6.5 TH/MM3 (4.0-11.0)
[2017-02-21 14:49] LABS: ALT (GPT) 13 U/L (12-78); ANION GAP 7 MEQ/L (5-15); AST (GOT) 16 U/L (15-37); BICARBONATE 36.8 MEQ/L (21.0-32.0); BLOOD UREA NITROGEN 35 MG/DL (7-18); CHLORIDE 96 MEQ/L (98-107); GLOMERULAR FILTRATION RATE 54 ML/MIN (>89); HEMO FLAGS AUTO DIFF; SODIUM (NA) 140 MEQ/L (136-145)
[2017-02-21 14:51] LABS: ALKALINE PHOSPHATASE 135 U/L (45-117); TOTAL BILIRUBIN ADULT 0.9 MG/DL (0.2-1.0)
[2017-02-21 15:30] LABS: KERATOCYTES OCC (NORMAL); PLATELET ESTIMATE SMEAR LOW (NORMAL); PLATELET MORPHOLOGY NORMAL (NORMAL)
[2017-02-21 15:31] LABS: SCAN/DIFF AUTO DIFF CONFIRMED
[2017-02-21] MEDS ORDERED: POTASSIUM CHLORIDE 20 MEQ CONTROLLED RELEASE TAB PO ONE (16:00)
[2017-02-21] MEDS ORDERED: LIDOCAINE HCL 1% PF 30 ML VIAL ONE (18:19)
[2017-02-21] MEDS: SPIRONOLACTONE 50 MG TAB PO SCH (18:51)
[2017-02-21] MEDS ORDERED: FLUoxetine HCL 20 MG CAP PO SCH (21:00)
[2017-02-22 06:04] VITALS: BP 121/49; PULSE 54; RESP 18; TEMP 97.5; O2SAT 91
[2017-02-22 07:39] VITALS: BP 123/60; PULSE 57; RESP 15; TEMP 97.8; O2SAT 95
[2017-02-22] MEDS: CARVEDILOL 12.5 MG TAB PO SCH (07:55)
[2017-02-22] MEDS: DOCUSATE SODIUM 50 MG/SENNA 8.6 MG TAB PO SCH (08:23)
[2017-02-22] MEDS: FERROUS SULFATE 325 MG (65 MG ELEMENTAL IRON) TAB PO SCH (08:23)
[2017-02-22] MEDS: levETIRAcetam 500 MG TAB PO SCH (08:23)
[2017-02-22] MEDS: lamoTRIgine 100 MG TAB PO SCH (08:23)
[2017-02-22] MEDS: LEVOTHYROXINE SODIUM 150 MCG TAB PO SCH (08:24)
[2017-02-22] MEDS: POTASSIUM CHLORIDE 20 MEQ PWD PACKET PO SCH (08:24)
[2017-02-22] MEDS: hydrALAZINE HCL 25 MG TAB PO SCH (08:24)
[2017-02-22] MEDS: SODIUM CHLORIDE 0.9% FLUSH 10 ML FLUSH IV FLUSH SCH (08:24)
[2017-02-22] MEDS: SPIRONOLACTONE 50 MG TAB PO SCH (08:24)
[2017-02-22] MEDS ORDERED: TORSEMIDE 20 MG TAB PO SCH (09:00)
--- NOTE | 2017-02-22 09:15 | HHI.PR ---
Subjective Remarks Follow-up for liver cirrhosis, ascites. Patient underwent paracentesis by interventional radiology yesterday. 5.9 L of fluid was taken off. Patient is currently feeling well. No fever or chills. Objective Vitals Vital Signs Date Time Temp Pulse Resp B/P Pulse Ox O2 Delivery O2 Flow Rate FiO2 02/22/17 07:39 97.8 57 15 123/60 95 02/22/17 06:04 97.5 54 18 121/49 91 02/21/17 23:01 97.6 60 17 133/41 94 02/21/17 19:28 98.3 65 17 137/50 94 02/21/17 18:32 97.8 64 18 134/55 93 02/21/17 16:14 99.0 61 16 121/51 93 02/21/17 12:52 99.1 60 18 124/55 95 I/O 02/21/17 02/21/17 02/21/17 02/22/17 02/22/17 02/22/17 07:00 15:00 23:00 07:00 15:00 23:00 Intake Total 221 ml 600 ml 420 ml Output Total 350 ml Balance 221 ml 250 ml 420 ml Intake Oral 221 ml 600 ml 420 ml Output Urine Total 350 ml # Voids 1 2 Result Diagram: 02/21/17 1404 02/21/17 1404 Imaging Last Impressions Chest X-Ray 02/20/171811 Signed Impressions: Service Date/Time: Monday, February 20, 2017 18:26 - CONCLUSION: Basilar atelectasis. Trace pleural fluid. Cardiomegaly. No pneumothorax. Jesus Munguia MD Abdomen/Pelvis CT 02/20/171811 Signed Impressions: Service Date/Time: Monday, February 20, 2017 18:31 - CONCLUSION: 1. There is liver cirrhosis with moderate ascites. Mild to moderate anasarca. 2. Trace pleural fluid with basilar atelectasis. 3. Cardiomegaly. Large left renal cyst. 4. Small pericardial effusion. Jesus Munguia MD Objective Remarks GENERAL: Alert, NAD. SKIN: Warm and dry. HEAD: Normocephalic. EYES: No scleral icterus. No injection or drainage. NECK: Supple, trachea midline. No JVD or lymphadenopathy. CARDIOVASCULAR: Regular rate and rhythm without murmurs, gallops, or rubs. RESPIRATORY: Breath sounds equal bilaterally. No accessory muscle use. GASTROINTESTINAL: Abdomen soft, non-tender, still somewhat distended. BS+ MUSCULOSKELETAL: No cyanosis. lower ext edema 2+ BACK: Nontender without obvious deformity. No CVA tenderness. Procedures 02/21/2017 Paracentesis. A/P Assessment and Plan 77-year-old male with past medical history of HTN, hypothyroidism, CVA, seizure disorder, cirrhosis who presented for abdominal distention Cirrhosis with ascites: Reviewed: Abdominal CT shows liver cirrhosis with moderate ascites. Hepatitis panel negative on 08/19/16. Afebrile with no leukocytosis. LFTs showed only minimal elevation of alkaline phosphatase. INR 1.1. -Adjust diuretics; hold metolazone, change Bumex/Lasix to oral torsemide, started spironolactone 100mg Qday. -IR performed paracentesis, 5.9 L of fluid taken off. -Continue outpatient follow-up with GI for further workup History of malignant hypertension: BP is currently well controlled. Decrease home carvedilol dose with bradycardia. Continue hydralazine and minoxidil, consider adjusting therapy. -Continue to monitor especially diuretic adjustment as above. TRACY: Creatinine 1.4; previously 1.3 on 02/10 and 0.82 on 08/21. Suspect secondary to overdiuresis. Caution with diuretics. Creatinine improved to 1.3. Hypokalemia: Potassium 3.1, likely secondary to diuresis. Replaced potassium orally. magnesium 2.0. Will provide some KCL supplementation. - Encouraged patient follow up with PCP within one week. History of seizure disorder: Has 12 seizures per year on current AED regimen. Continue home Keppra and Lamictal. DVT prophylaxis: SCDs Discharge patient to home Condition on discharge: Improved Heart healthy Diet as tolerated Ad Amanda activity Rx written: Carvedilol decreased to 25 mg twice a day Potassium chloride 10 mEq daily for 5 days Spironolactone 50 mg twice a day Torsemide 20 mg daily. Follow-up with primary care physician within one week. Gastroenterology follow- up within one week. Harper Alejandre DO Feb 22, 2017 09:15
[2017-02-22] MEDS ORDERED: ALDA50TA2 PO (09:19)
[2017-02-22] MEDS ORDERED: TORS1TAB12 PO (09:19)
[2017-02-22] MEDS ORDERED: CARV12.5 PO (09:19)
[2017-02-22] MEDS ORDERED: K-TA10TA PO (09:19)
--- NOTE | 2017-02-22 13:12 | RADRPT ---
EXAM DATE/TIME: 02/21/2017 16:51 [facility] COMPARISON: No previous studies available for comparison. INDICATIONS : Ascities. Has never had a paracentesis MEDICAL HISTORY : Stroke. Myocardial infarction. Hypercholesterolemia. Wears glasses. Seizures. Sleep apnea. Diverticul itis. Gastroesophageal reflux disorder. Prostate cancer. Arthritis. Claustrophobia. SURGICAL HISTORY : Cholecystectomy Craniotomy. Colectomy. Foot surgery. Back surgery. ENCOUNTER: Initial ACUITY: 7 - 11 months PAIN SCORE: 3/10 LOCATION: Left lower quadrant FLUID: Total volume of 5400 cc of clear, yellow fluid was removed. Fluid was discarded. Paracentesis was therapeutic only. Post procedure scanning reveals no hematoma or other complication. TECHNIQUE: 1. Ultrasound guidance for abdominal paracentesis. 2. Paracentesis. The risks, benefits, and alternatives to ultrasound guided paracentesis were explained to the patient in detail including the risk of bleeding and infection. Written and verbal informed consent was obt ained. With the patient on the ultrasound table, ultrasound imaging was used to select the most appropriate approach for paracentesis. Overlying skin was prepped and draped in the usual sterile fashion and wi th a local anesthetic, a dermatotomy was made with an 11 blade scalpel. A 6 [place] [id number] ca theter was introduced into the peritoneal cavity and fluid was collected. The patient tolerated the procedure well and left the ultrasound suite in stable condition. CONCLUSION: Uncomplicated ultrasound guided paracentesis. This is the patient's initial paracentesis. Although vo lume remains in the abdomen the drainage was stopped at 5400 mL. If the patient tolerates this volume of fluid extraction then higher volume can be considered in the future if needed. Arnol Park Jr., MD on February 22, 2017 at 13:09 Board Certified Radiologist. This report was verified electronically.
== END 2017-02-22 12:51 | disposition home or self-care (01) ==
LOC: PHED 17:43 → PHEDA 19:35 → NEPGCP 22:32
PROVIDERS: ADMIT Hospitalist; ATTEND Hospitalist
DX: K74.60 Unspecified cirrhosis of liver (principal); R18.8 Other ascites; N17.9 Acute kidney failure, unspecified; N28.1 Cyst of kidney, acquired; I31.3 Pericardial effusion (noninflammatory); E03.9 Hypothyroidism, unspecified; G40.909 Epilepsy, unspecified, not intractable, without status epilepticus; E87.6 Hypokalemia; G47.30 Sleep apnea, unspecified; D69.6 Thrombocytopenia, unspecified; Z85.46 Personal history of malignant neoplasm of prostate; I25.2 Old myocardial infarction; K21.9 Gastro-esophageal reflux disease without esophagitis; E78.00 Pure hypercholesterolemia, unspecified; I51.7 Cardiomegaly; Z99.3 Dependence on wheelchair; I69.354 Hemiplegia and hemiparesis following cerebral infarction affecting left non-dominant side; M19.112 Post-traumatic osteoarthritis, left shoulder; Z79.899 Other long term (current) drug therapy; Z86.73 Personal history of transient ischemic attack (TIA), and cerebral infarction without residual deficits; Z79.82 Long term (current) use of aspirin
CPT/HCPCS: 49083; 71010; 74176; 80053; 81001; 83690; 83735; 85025; 85610; 85730; 87804; 92610; 99285; C1729; G0378; G8996; G8997; G8998

== ENCOUNTER 2017-03-18 10:06 | Day surgery (SDC) | payer MEDICARE, OTHER ==
[~2017-03-18 10:06] MED LIST changes: +ALDA50TA2 PO; -BUME2TAB PO; +CARV12.5 PO; -CARV25TA PO; +K-TA10TA PO; -LORA-373 PO; +LORA1TAB12 PO; +POLY17PO3; -POTA20TA5 PO; +TORS1TAB12 PO; +VITA150T
[2017-03-18 10:50] VITALS: BP 134/62; PULSE 69; RESP 18; TEMP 98.8; O2SAT 90
[2017-03-18 12:20] VITALS: BP 130/45; PULSE 79; RESP 16; TEMP 98.4; O2SAT 96
[2017-03-18 12:30] VITALS: BP 125/62; PULSE 88; RESP 16; O2SAT 96
[2017-03-18] MEDS ORDERED: ALBUMIN HUMAN 25% 25GM-W/12.5GM FOR 37.5GM IV ONE (12:45)
[2017-03-18] MEDS ORDERED: ALBUMIN HUMAN 25% 12.5GM-W/25GM FOR 37.5GM IV ONE (12:45)
[2017-03-18 12:54] VITALS: BP 129/65; PULSE 82; RESP 16; O2SAT 96
[2017-03-18 12:54] LABS: PERITONEAL HISTIOCYTES 41 %; PERITONEAL LYMPHS 39 %; PERITONEAL MESOTHELIAL 7 %; PERITONEAL POLYS(SEGS) 13 %
[2017-03-18 12:55] LABS: PERITONEAL WBC 176 /MM3 (0-10)
--- NOTE | 2017-03-18 12:57 | RADRPT ---
EXAM DATE/TIME: 03/18/2017 10:44 [facility] COMPARISON: US GUIDED ABD PARACENTESIS, February 21, 2017, 16:51. INDICATIONS : Ascites. MEDICAL HISTORY : Stroke. Myocardial infarction. Hypercholesterolemia. Wears glasses. Seizures. Sleep apnea. Diverticul itis. Gastroesophageal reflux disorder. Prostate cancer. Arthritis. Claustrophobia. SURGICAL HISTORY : Cholecystectomy Craniotomy. Colectomy. Foot surgery. Back surgery. ENCOUNTER: Subsequent ACUITY: 3 weeks PAIN SCORE: 4/10 LOCATION: Left lower quadrant FLUID: Total volume of 5,800 cc of clear, yellow fluid was removed. Fluid was sent to lab for ordered studies. Post procedure scanning reveals no hematoma or other complication. TECHNIQUE: 1. Ultrasound guidance for abdominal paracentesis. 2. Paracentesis. The risks, benefits, and alternatives to ultrasound guided paracentesis were explained to the patient in detail including the risk of bleeding and infection. Written and verbal informed consent was obt ained. With the patient on the ultrasound table, ultrasound imaging was used to select the most appropriate approach for paracentesis. Overlying skin was prepped and draped in the usual sterile fashion and wi th a local anesthetic, a dermatotomy was made with an 11 blade scalpel. A 6 [place] [id number] ca theter was introduced into the peritoneal cavity and fluid was collected. The patient tolerated the procedure well and left the ultrasound suite in stable condition. CONCLUSION: Uncomplicated ultrasound guided paracentesis. Arnol Park Jr., MD on March 18, 2017 at 12:55 Board Certified Radiologist. This report was verified electronically.
[2017-04-17] MEDS ORDERED: ZANT150T2 PO (10:17)
== END 2017-03-18 13:10 | disposition home or self-care (01) ==
LOC: HRAD 10:06 → HRIP 10:07 → HRAD 13:10
PROVIDERS: ATTEND Physician Assistant Medical
DX: R18.8 Other ascites (principal); K74.60 Unspecified cirrhosis of liver; E78.00 Pure hypercholesterolemia, unspecified; I25.2 Old myocardial infarction; K21.9 Gastro-esophageal reflux disease without esophagitis; R56.9 Unspecified convulsions; G47.30 Sleep apnea, unspecified; F40.240 Claustrophobia; M19.90 Unspecified osteoarthritis, unspecified site; Z86.73 Personal history of transient ischemic attack (TIA), and cerebral infarction without residual deficits; Z85.46 Personal history of malignant neoplasm of prostate
CPT/HCPCS: 49083; 84157; 87070; 87205; 88112; 88305; 89051; 96365; C1729; P9047

== ENCOUNTER → 2017-04-17 | Outpatient (CLI) | payer MEDICARE, OTHER ==
[~2017-04-17] VITALS: Ht 177.8 cm; Wt 100.0 kg
[~2017-04-17] MED LIST changes: +CHLORHEXIDINE GLUCONATE 2 % 1 PACK (2 CLOTHS) TOPICAL PRN; +INSULIN HUMAN REGULAR 1,000 UNITS/10 ML VIAL SQ PRN; +LACTATED RINGER'S 1000 ML IV PRN; +METOPROLOL TARTRATE 25 MG TAB PO PRN; +POVIDONE IODINE 5% (ANTISEPSIS KIT) 4 APPLICATIONS EACH NARE PRN; +PROPOFOL 200 MG/20 ML AMP IV ONE; +PROPOFOL 200 MG/20 ML AMP ONE; +SODIUM CHLORID 0.9% 500 ML IV PRN; +ZANT150T2 PO
--- NOTE | 2017-04-17 10:00 | GIPROC ---
[facility] [address] [facility]. [facility], [address] EGD PROCEDURE REPORT EXAM DATE: 04/17/2017 PATIENT NAME: Donovan Valles MR #: [id number] BIRTHDATE: 1940 ATTENDING: Adebayo Blank MD ORDER #: [id number] PATIENT PLACEMENT COORDINATOR: Scott Atkinson and Cristian Pereira STATUS: outpatient INDICATIONS: The patient is a 77 yr old male here for an EGD due to cirrhosis of unknown etiology; he takes no NSAIDs. PROCEDURE PERFORMED: EGD w/ biopsy MEDICATIONS: Per Anesthesia. TOPICAL ANESTHETIC: none CONSENT: The patient understands the risks and benefits of the procedure and understands that these risks include, but are not limited to: sedation, allergic reaction, infection, perforation and/or bleeding. Alternative means of evaluation and treatment include, among others: physical exam, x-rays, and/or surgical intervention. The patient elects to proceed with this endoscopic procedure. medical equipment was checked for proper function. Hand hygiene and appropriate measures for infection prevention was taken. After the risks, benefits and alternatives of the procedure were thoroughly explained, Informed consent was verified, confirmed and timeout was successfully executed by the treatment team. The patient was anesthetized with topical anesthesia and the Pentax EG-[id number] endoscope was introduced through the mouth and advanced to the second portion of the duodenum. Retroflexion was performed The gastroscope was then slowly withdrawn and removed. ESOPHAGUS: A mildly severe Schatzki ring was found at the gastroesophageal junction. No esophageal varices are noted. STOMACH: Multiple erosions were found in the antrum and distal body. Biopsies were taken. No evidence of gastric varices, portal hypertensive gastropathy or GAVE. The pylorus and duodenum appeared normal. ADVERSE EVENTS: There were no complications. IMPRESSIONS: 1. Schatzki ring was found at the gastroesophageal junction 2. Multiplegastric erosions were found; biopsies were taken. 3. Retroflexion was performed RECOMMENDATIONS: Await biopsy results. Biopsy results will not be ready for 7-10 days. If you don't hear from us in two weeks, call our office for biopsy results. Begin ranitidine or Zantac, 150mg twice/day. PATIENT CONDITION: stable DISPOSITION: Home REPEAT EXAM: Return 2 years EGD Adebayo Blank MD eSigned: Adebayo Blank MD 04/17/2017 9:59 AM cc: Brigid Zaman M.D. PATIENT NAME: Donovan Valles MR#: [id number]
[2017-04-17 10:20] VITALS: BP 136/58; PULSE 69; RESP 18; O2SAT 92
--- NOTE | 2017-04-17 16:26 | EKG ---
Date Performed: 04/17/2017 Time Performed: 08:33:22 PTAGE: 77 years EKG: Sinus rhythm INTRAVENTRICULAR CONDUCTION DELAY POSSIBLE ANTERIOR MYOCARDIAL INFARCTION , OF INDETERMINATE AGE ABN ORMAL ECG PREVIOUS TRACING : 08/16/2016 08.24 DOCTOR: Celeste Mead Interpretating Date/Time 04/17/2017 16:24:53
== END ==
LOC: HSDC 07:23
DX: K22.2 Esophageal obstruction (principal); K74.60 Unspecified cirrhosis of liver; R18.8 Other ascites; D69.6 Thrombocytopenia, unspecified; Z01.810 Encounter for preprocedural cardiovascular examination
CPT/HCPCS: 00740; 43239; 88305; 88312; 93005; J7120

== ENCOUNTER 2017-05-07 09:01 | Day surgery (SDC) | payer MEDICARE, OTHER ==
[2017-05-07] VITALS (8 sets, daily range): BP systolic 102–148; BP diastolic 45–69; PULSE 67–82; RESP 16–20; TEMP 97.9–98.4; O2SAT 90–95
[~2017-05-07] VITALS: Ht 177.8 cm; Wt 90.9 kg
[~2017-05-07 09:01] MED LIST changes: -CHLORHEXIDINE GLUCONATE 2 % 1 PACK (2 CLOTHS) TOPICAL PRN; -INSULIN HUMAN REGULAR 1,000 UNITS/10 ML VIAL SQ PRN; -LACTATED RINGER'S 1000 ML IV PRN; -METOPROLOL TARTRATE 25 MG TAB PO PRN; -POVIDONE IODINE 5% (ANTISEPSIS KIT) 4 APPLICATIONS EACH NARE PRN; -PROPOFOL 200 MG/20 ML AMP IV ONE; -PROPOFOL 200 MG/20 ML AMP ONE; -SODIUM CHLORID 0.9% 500 ML IV PRN
[2017-05-07] MEDS ORDERED: SODIUM CHLOR 0.9% 1000 ML IV SCH (09:45)
[2017-05-07] MEDS ORDERED: MIDAZOLAM HCL 5 MG/5 ML VIAL IV ONE (10:30)
--- NOTE | 2017-05-07 10:54 | PD.RAD ---
Post CT Procedure Prog Note Pre Procedure Diagnosis: (1) Cirrhosis Post Procedure Diagnosis: (1) Cirrhosis Procedure Date: May 07, 2017 Supervising Radiologist: Arnol Park JR Anesthesia: Conscious Sedation Plan of Activity Patient to Unit: [facility] See PACS Report for procedural detail/treatment Biopsy Imaging Guidance: CT Biopsy Procedure: Liver Specimen: Core Biopsy Findings: Good core sample of right lobe of liver obtained. No hemorrhage on post bx CT images. Jr. Xavier,Arnol Siegel MD May 07, 2017 10:54
--- NOTE | 2017-05-07 13:28 | RADRPT ---
EXAM DATE/TIME: 05/07/2017 10:36 [facility] COMPARISON: No previous studies available for comparison. INDICATIONS : Cirrhosis with ascites. SEDATION TIME: 30 minutes BIOPSY SITE: Right flank MEDICATION(S): 1.) 2 mg midazolam (Versed) IV 2.) 100 mcg fentanyl (Sublimaze) IV DEVICE(S): 1.) 18 gauge BioPince needle MEDICAL HISTORY : Carcinoma, prostate. Gastroesophageal reflux disease. Hypertension. SURGICAL HISTORY : Cholecystectomy Colon resection. ENCOUNTER: Initial ACUITY: 1 day PAIN SCORE: 0/10 LOCATION: Right upper quadrant A total of one core specimen(s) were obtained and sent to the laboratory for pathologic evaluation. PROCEDURE: 1. CT guided liver biopsy. Prior to the procedure informed consent was obtained. Any appropriate prior imaging studies were rev iewed. Using automated exposure control and adjustment of the mA and/or kV according to patient size, radiat ion dose was kept as low as reasonably achievable to obtain optimal diagnostic quality images. DICOM format image data is available electronically for review and comparison. The site was prepped in a sterile fashion. Full sterile technique was used, including cap, mask, manasa rile gloves and gown and a large sterile sheet. Hand hygiene and 2% chlorhexidine and/or betadine/al cohol prep was utilized per protocol for cutaneous antisepsis. The skin and subcutaneous tissues wer e infiltrated with local anesthetic solution. With CT guidance the previously identified target was localized. Biopsy was performed using the presc ribed needle as above. Adequate hemostasis was obtained with compression at the puncture site. Follow-up CT scan reveals no hemorrhage. The patient tolerated the procedure well and there were no complications. The patient was returned to the Radiology Outpatient Unit in stable condition. CONCLUSION: Uncomplicated CT guided core biopsy of the liver. Arnol Park Jr., MD on May 07, 2017 at 13:26 Board Certified Radiologist. This report was verified electronically.
== END 2017-05-07 15:00 | disposition home or self-care (01) ==
LOC: HRAD 09:01 → HRIP 09:02 → HRAD 15:00
DX: K74.60 Unspecified cirrhosis of liver (principal); R18.8 Other ascites; I10 Essential (primary) hypertension; K21.9 Gastro-esophageal reflux disease without esophagitis
CPT/HCPCS: 47000; 77012; 88307; 88313; J2250; J3010; J7030

== ENCOUNTER → 2017-05-08 | Outpatient (CLI) | payer MEDICARE, OTHER ==
[~2017-05-08] MED LIST changes: +LIDOCAINE HCL 1% 20 ML VIAL ONE
--- NOTE | 2017-05-08 11:09 | RADRPT ---
EXAM DATE/TIME: 05/08/2017 10:28 [facility] COMPARISON: No previous studies available for comparison. INDICATIONS : Dysphagia. FLUORO TIME: 1.9 minutes IMAGE COUNT: 1 CONTRAST: Dose as prescribed by speech pathologist. MEDICAL HISTORY : Gastroesophageal reflux disease. Myocardial infarction. Hypertension. stroke, seizures, prostate caner SURGICAL HISTORY : Colon resection. Cholecystectomy. Craniotomy. ENCOUNTER: Initial ACUITY: 4 - 6 months PAIN SCORE: 0/10 LOCATION: esophagus FINDINGS: A modified barium swallow was performed with speech pathology. Patient was given a variety of liquids to swallow. Minimal laryngeal penetration without aspiration. For a full detailed report, see report by the speech pathologist. CONCLUSION: No aspiration. Pascual Encarnacion MD FACR on May 08, 2017 at 11:08 Board Certified Radiologist. This report was verified electronically.
== END ==
LOC: HRAD 10:00
DX: R13.12 Dysphagia, oropharyngeal phase (principal)
CPT/HCPCS: 74230; 92611; G8996; G8997; G8998